=== PATIENT | male | born 1940 | race Caucasian/White ===

== ENCOUNTER 2018-07-31 16:27 | Inpatient (IN) | payer MEDICARE, OTHER ==
--- NOTE | 2018-07-31 17:03 | PDOC ---
History of Present Illness - General Stated Complaint: FLU Time Seen by Provider: 07/31/18 17:03 - History of Present Illness Initial Comments: 07/31/18 17:04 Mr. Nieves is a 78 yo male w/ pmh of CAD, CHF, HTN, paroxysmal atach and SBO s/ p operation from large hiatal hernia who presents for evaluation of 1 day history of cough with supra pubic pain, fever, and back pain. Patient reports he was in his normal state of health until 2-3 hours before presentation when everything started at once. Patient denies other complaints at this time. The patient denies chest pain, shortness of breath, headache and dizziness. Denies chills, nausea, vomit, diarrhea and constipation. Past History - Past Medical History Allergies/Adverse Reactions: Allergies Allergy/AdvReac Type Severity Reaction Status Date / Time No Known Allergies Allergy Verified 10/29/14 10:56 Home Medications: Ambulatory Orders Metoprolol Tartrate [Lopressor -] 25 mg PO BID #0 tab 08/23/11 Dexlansoprazole [Dexilant] 30 mg PO DAILY 10/17/11 Levothyroxine [Synthroid] 25 mcg PO DAILY 02/06/12 Meclizine HCl [Antivert] 12.5 mg PO TID 02/06/12 Olmesartan Medoxomil [Benicar] 20 mg PO DAILY 04/09/12 Hydrocortisone 2.5% Lotion [Hytone 2.5% Lotion -] 1 applic TP BID #1 bottle Anemia: No Asthma: No Cancer: No Cardiac Disorders: Yes CVA: No COPD: No CHF: No Dementia: No Diabetes: No GI Disorders: Yes (polyps -stomach, GI bleed) Disorders: No HTN: Yes Hypercholesterolemia: Yes Liver Disease: No Seizures: No Thyroid Disease: Yes (HYPO.) - Surgical History Abdominal Surgery: Yes (HERNIA REPAIR, PEG TUBE.) Appendectomy: No Cardiac Surgery: No Cholecystectomy: No Lung Surgery: No Neurologic Surgery: No Orthopedic Surgery: No - Family Disease History Family Disease History: Diabetes: Sister - Suicide/Smoking/Psychosocial Hx Smoking Status: No Smoking History: Never smoked Have you smoked in the past 12 months: No Number of Cigarettes Smoked Daily: 0 Hx Alcohol Use: No Drug/Substance Use Hx: No Substance Use Type: None Hx Substance Use Treatment: No Review of Systems - Review of Systems Comments:: 07/31/18 17:41 GENERAL/CONSTITUTIONAL: +Current fever. No chills. No weakness. HEAD, EYES, EARS, NOSE AND THROAT: No change in vision. No ear pain or discharge. No sore throat. CARDIOVASCULAR: No chest pain or shortness of breath RESPIRATORY: No cough, wheezing, or hemoptysis. GASTROINTESTINAL: No nausea, vomiting, diarrhea or constipation. GENITOURINARY: +Suprapubic pain and pain with urination MUSCULOSKELETAL: +Midline back pain x1 day. No joint or muscle swelling or pain. No neck pain. SKIN: No rash NEUROLOGIC: No headache, vertigo, loss of consciousness, or change in strength/ sensation. ENDOCRINE: No increased thirst. No abnormal weight change HEMATOLOGIC/LYMPHATIC: No anemia, easy bleeding, or history of blood clots. ALLERGIC/IMMUNOLOGIC: No hives or skin allergy. *Physical Exam - Physical Exam Comments: 07/31/18 17:42 GENERAL: +Patient hot to touch. Awake, alert, and fully oriented, in no acute distress HEAD: No signs of trauma, normocephalic, atraumatic EYES: PERRLA, EOMI, sclera anicteric, conjunctiva clear ENT: Auricles normal inspection, hearing grossly normal, nares patent, oropharynx clear without exudates. Moist mucosa NECK: Normal ROM, supple, no lymphadenopathy, JVD, or masses LUNGS: No distress, speaks full sentences, clear to auscultation bilaterally HEART: +Tachhycardia w/ irregular rhythm. Normal S1 and S2, no murmurs, rubs or gallops, peripheral pulses normal and equal bilaterally. ABDOMEN: +Distended appearing however reportedly at baseline per patient/ family. Pelvic TTP. Midline scar noted c/w large abdominal surgery. Soft, nontender, normoactive bowel sounds. No guarding, no rebound. No masses EXTREMITIES: Normal inspection, Normal range of motion, no edema. No clubbing or cyanosis. NEUROLOGICAL: Cranial nerves II through XII grossly intact. Normal speech, normal gait, no focal sensorimotor deficits SKIN: Dry, normal turgor, no rashes or lesions noted. ED Treatment Course - LABORATORY CBC & Chemistry Diagram: 07/31/18 17:29 07/31/18 17:29 Medical Decision Making - Medical Decision Making 07/31/18 18:33 Mr. Ezequiel Ospina is a 78 yo male w/ pmh as described who presents for evaluation of symptoms c/w sepsis. Patient workup started accordingly and patient covered with vancomycin / zosyn. IV tylenol given for 103.9 rectal temperature. EKG concerning for afib with non-sustained run of wide complex tachycardia. Metoprolol 5mg and 1L NS given for rate control. Further workup pending - patient will come in for further care once further workup complete. 07/31/18 19:07 Patient signed out to Dr. Hood for further evaluation. *DC/Admit/Observation/Transfer Diagnosis at time of Disposition: Sepsis Qualifiers: Sepsis type: sepsis due to unspecified organism Qualified Code(s): A41.9 - Sepsis, unspecified organism - Discharge Dispostion Decision to Admit order: Yes - Referrals Referrals: Eliza Boone MD [Primary Care Provider] - - Patient Instructions - Post Discharge Activity
[2018-07-31] MEDS ORDERED: METOPROLOL TARTRATE 5 MG/5 ML VIAL IVPUSH ONE (17:23)
[2018-07-31] MEDS ORDERED: VANCOMYCIN 1 GM in D5W (PRE-DOCKED) 1,000 MG/250 ML IVPB ONE (17:23)
[2018-07-31] MEDS ORDERED: PIPERACILLIN/TAZOB 3.375 GM 3.375 GM in DEXTROSE 5%-WATER - 50 ML IVPB ONE (17:23)
[2018-07-31] MEDS ORDERED: METOPROLOL TARTRATE 5 MG/5 ML VIAL ONE (17:25)
[2018-07-31] MEDS ORDERED: VANCOMYCIN 1 GRAM (PRE-DOCKED) 1,000 MG/250 ML BAG IVPB ONE (17:26)
[2018-07-31] MEDS ORDERED: PIPERACILLIN/TAZOB 3.375 GM 3.375 GM/50 ML BAG IVPB ONE (17:26)
[2018-07-31] MEDS ORDERED: ACETAMINOPHEN INJECTION 100 ML IVPB ONE (17:45)
[2018-07-31] MEDS ORDERED: ACETAMINOPHEN 1000 MG/100 ML VIAL (NON FORMULARY) IVPB ONE (17:45)
--- NOTE | 2018-07-31 18:27 | PDOC ---
Attending Attestation - Resident Resident Name: Amos Allen - ED Attending Attestation I have performed the following: I have examined & evaluated the patient, The case was reviewed & discussed with the resident, I agree w/resident's findings & plan, Exceptions are as noted
[2018-07-31 18:41] LABS: VENOUS PC02 41.8 mmHg (41-51); VENOUS PH 7.35 (7.31-7.41); VENOUS PO2 21.7 mmHg (30-40)
[2018-07-31 18:59] LABS: ALK PHOS 193 U/L (45-117); ANION GAP 9 MMOL/L (8-16); BLOOD UREA NITROGEN 22 mg/dL (7-18); CALCIUM 8.1 mg/dL (8.5-10.1); CHLORIDE 107 mmol/L (98-107); CO2 22 mmol/L (21-32); GLUCOSE,RANDOM 223 mg/dL (74-106); POTASSIUM 4.2 mmol/L (3.5-5.1); SGOT/AST 17 U/L (15-37); SGPT/ALT 20 U/L (13-61); SODIUM 138 mmol/L (136-145); TOT PROT 7.3 g/dl (6.4-8.2)
[2018-07-31 19:02] LABS: INR 1.16 (0.83-1.09); PROTHROMBIN TIME (PATIENT) 13.7 SEC (9.7-13.0)
[2018-07-31 19:05] LABS: ACTIVATED PTT 29.2 SECONDS (25.2-36.5)
--- NOTE | 2018-07-31 19:12 | PDOC ---
*Physical Exam - Vital Signs Last Vital Signs Temp Pulse Resp BP Pulse Ox 103.9 F H 91 H 18 146/91 95 07/31/18 17:24 07/31/18 16:54 07/31/18 16:54 07/31/18 17:32 07/31/18 18:45 ED Treatment Course - LABORATORY CBC & Chemistry Diagram: 07/31/18 17:29 07/31/18 17:29 - ADDITIONAL ORDERS Additional order review: Laboratory Results 07/31/18 07/31/18 07/31/18 17:50 17:29 17:29 PT with INR INR PTT (Actin FS) VBG pH 7.35 POC VBG pCO2 41.8 POC VBG pO2 21.7 L VBG HCO3 22.2 L VBG O2 Sat (Jodi) 29.7 L VBG Base Excess -2.8 L Sodium 138 Potassium 4.2 Chloride 107 Carbon Dioxide 22 Anion Gap 9 BUN 22 H Creatinine 2.0 H Creat Clearance w eGFR 32.65 Random Glucose 223 H Lactic Acid 3.6 H* Calcium 8.1 L Total Bilirubin 1.0 AST 17 ALT 20 Alkaline Phosphatase 193 H Troponin I Total Protein 7.3 Albumin 3.0 L 07/31/18 07/31/18 17:29 16:13 PT with INR 13.70 H INR 1.16 H PTT (Actin FS) 29.2 VBG pH POC VBG pCO2 POC VBG pO2 VBG HCO3 VBG O2 Sat (Jodi) VBG Base Excess Sodium Potassium Chloride Carbon Dioxide Anion Gap BUN Creatinine Creat Clearance w eGFR Random Glucose Lactic Acid Calcium Total Bilirubin AST ALT Alkaline Phosphatase Troponin I 0.12 H Total Protein Albumin - Medications Given in the ED: ED Medications Discontinued Medications Generic Name Dose Route Start Last Admin Trade Name Chipq PRN Reason Stop Dose Admin Acetaminophen 1,000 mg 07/31/18 17:45 07/31/18 17:45 Ofirmev Injection - IVPB 07/31/18 17:46 1,000 mg ONCE ONE Administration Piperacillin Sod/Tazobactam 50 mls @ 100 mls/hr 07/31/18 17:23 07/31/18 17:32 Sod 3.375 gm/ Dextrose IVPB 07/31/18 17:52 100 mls/hr ONCE ONE Administration Protocol Metoprolol Tartrate 5 mg 07/31/18 17:23 07/31/18 17:32 Lopressor Injection - IVPUSH 07/31/18 17:24 5 mg ONCE ONE Administration Vancomycin HCl 1,000 mg 07/31/18 17:23 07/31/18 18:00 Vancomycin (Pre-Docked) IVPB 07/31/18 17:24 1,000 mg ONCE ONE Administration Protocol Medical Decision Making - Critical Care Time Total Critical Care Time (minutes): 90 Critical Care Statement: The care of this patient involved high complexity decision making to prevent further life threatening deterioration of the patient 's condition and/or to evaluate & treat vital organ system(s) failure or risk of failure. - Medical Decision Making 07/31/18 20:22 Patient signed out pending urinalysis results, UA consistent with urinary tract infection There are RBCs present and in light of patient's suprapubic/flank pain a CT will be ordered to further evaluate and rule out ureterolithiasis Sepsis protocol initiated Plan for admission pending CT scan results There have been no further episodes of V. tach *DC/Admit/Observation/Transfer Diagnosis at time of Disposition: Sepsis Qualifiers: Sepsis type: sepsis due to unspecified organism Qualified Code(s): A41.9 - Sepsis, unspecified organism - Referrals Referrals: Eliza Boone MD [Primary Care Provider] - - Patient Instructions - Post Discharge Activity
[2018-07-31 19:18] LABS: BASO % 0.2 % (0-2.0); EOS % 0.5 % (0-4.5); HEMATOCRIT 40.9 % (35.4-49); HEMOGLOBIN 12.2 GM/dL (11.7-16.9); LYMPH % 4.6 % (8-40); MCH 21.5 pg (25.7-33.7); MCHC 29.8 g/dl (32.0-35.9); MEAN CELL VOLUME 71.9 fl (80-96); MEAN PLT VOLUME 8.8 fl (7.5-11.1); NEUT % 93.7 % (42.8-82.8); PLATELET COUNT 184 K/MM3 (134-434); RBC 5.68 M/mm3 (4.00-5.60); RDW 19.4 % (11.9-15.9); WHITE BLOOD COUNT 8.8 K/mm3 (4.0-10.0)
[2018-07-31 19:38] LABS: EPI CELLS 0.5 /HPF (0-5); PH,URINE 5.5 (5.0-8.0); URINE APPEARANCE CLOUDY; URINE BACTERIA 3076.3 /hpf (NEGATIVE); URINE BILIRUBIN NEGATIVE (NEGATIVE); URINE CASTS 5 /hpf (0-8); URINE COLOR ORANGE; URINE GLUCOSE (UA) 2+ (NEGATIVE); URINE KETONE NEGATIVE (NEGATIVE); URINE LEUK ESTERASE 1+ (NEGATIVE); URINE NITRITE NEGATIVE (NEGATIVE); URINE PROTEIN 3+ (NEGATIVE); URINE RBC 51 /hpf (0-4); URINE WBC 94 /hpf (0-5)
[2018-07-31 20:11] LABS: ANISOCYTOSIS 1+; PLATELET ESTIMATE ADEQUATE
[2018-07-31] MEDS ORDERED: SODIUM CHLORIDE 1,000 ML IV STA (20:16)
--- NOTE | 2018-07-31 20:43 | PDOC ---
*Physical Exam - Vital Signs Last Vital Signs Temp Pulse Resp BP Pulse Ox 103.9 F H 91 H 18 146/91 95 07/31/18 17:24 07/31/18 16:54 07/31/18 16:54 07/31/18 17:32 07/31/18 18:45 ED Treatment Course - LABORATORY CBC & Chemistry Diagram: 07/31/18 17:29 07/31/18 17:29 - ADDITIONAL ORDERS Additional order review: Laboratory Results 07/31/18 07/31/18 07/31/18 19:14 17:50 17:29 PT with INR INR PTT (Actin FS) VBG pH 7.35 POC VBG pCO2 41.8 POC VBG pO2 21.7 L VBG HCO3 22.2 L VBG O2 Sat (Jodi) 29.7 L VBG Base Excess -2.8 L Sodium Potassium Chloride Carbon Dioxide Anion Gap BUN Creatinine Creat Clearance w eGFR Random Glucose Lactic Acid 3.6 H* Calcium Total Bilirubin AST ALT Alkaline Phosphatase Troponin I Total Protein Albumin Urine Color [place] Urine Appearance Cloudy Urine pH 5.5 Ur Specific [place] 1.013 Urine Protein 3+ H Urine Glucose (UA) 2+ H Urine Ketones Negative Urine Blood 3+ H Urine Nitrite Negative Urine Bilirubin Negative Urine Urobilinogen 1.0 Ur Leukocyte Esterase 1+ H Urine WBC (Auto) 94 Urine RBC (Auto) 51 Urine Casts (Auto) 5 U Epithel Cells (Auto) 0.5 Urine Bacteria (Auto) 3076.3 07/31/18 07/31/18 07/31/18 17:29 17:29 16:13 PT with INR 13.70 H INR 1.16 H PTT (Actin FS) 29.2 VBG pH POC VBG pCO2 POC VBG pO2 VBG HCO3 VBG O2 Sat (Jodi) VBG Base Excess Sodium 138 Potassium 4.2 Chloride 107 Carbon Dioxide 22 Anion Gap 9 BUN 22 H Creatinine 2.0 H Creat Clearance w eGFR 32.65 Random Glucose 223 H Lactic Acid Calcium 8.1 L Total Bilirubin 1.0 AST 17 ALT 20 Alkaline Phosphatase 193 H Troponin I 0.12 H Total Protein 7.3 Albumin 3.0 L Urine Color Urine Appearance Urine pH Ur Specific [place] Urine Protein Urine Glucose (UA) Urine Ketones Urine Blood Urine Nitrite Urine Bilirubin Urine Urobilinogen Ur Leukocyte Esterase Urine WBC (Auto) Urine RBC (Auto) Urine Casts (Auto) U Epithel Cells (Auto) Urine Bacteria (Auto) 07/31/18 17:29 RBC 5.68 H MCV 71.9 L MCHC 29.8 L RDW 19.4 H MPV 8.8 D Neutrophils % 93.7 H D Lymphocytes % 4.6 L D Monocytes % 1.0 L D Eosinophils % 0.5 D Basophils % 0.2 - RADIOLOGY Radiology Studies Ordered: Category Date Time Status ABDOMEN & PELVIS CT W/O CONTR [CT] Stat CT Scan 07/31/18 20:19 Ordered - Medications Given in the ED: ED Medications Discontinued Medications Generic Name Dose Route Start Last Admin Trade Name Freq PRN Reason Stop Dose Admin Acetaminophen 1,000 mg 07/31/18 17:45 07/31/18 17:45 Ofirmev Injection - IVPB 07/31/18 17:46 1,000 mg ONCE ONE Administration Piperacillin Sod/Tazobactam 50 mls @ 100 mls/hr 07/31/18 17:23 07/31/18 17:32 Sod 3.375 gm/ Dextrose IVPB 07/31/18 17:52 100 mls/hr ONCE ONE Administration Protocol Metoprolol Tartrate 5 mg 07/31/18 17:23 07/31/18 17:32 Lopressor Injection - IVPUSH 07/31/18 17:24 5 mg ONCE ONE Administration Vancomycin HCl 1,000 mg 07/31/18 17:23 07/31/18 18:00 Vancomycin (Pre-Docked) IVPB 07/31/18 17:24 1,000 mg ONCE ONE Administration Protocol Medical Decision Making - Medical Decision Making 08/01/18 06:54 CT shows evidence of pyelo. UA+. Signed out to [facility]. *DC/Admit/Observation/Transfer Diagnosis at time of Disposition: Sepsis Qualifiers: Sepsis type: sepsis due to unspecified organism Qualified Code(s): A41.9 - Sepsis, unspecified organism - Referrals - Patient Instructions - Post Discharge Activity
--- NOTE | 2018-08-01 00:33 | PN ---
Teaching Attending Note Name of Resident: Manuel Greene ATTENDING PHYSICIAN STATEMENT I saw and evaluated the patient. I reviewed the resident's note and discussed the case with the resident. I agree with the resident's findings and plan as documented. SUBJECTIVE: Patient is a 78 year old man with PMH of CAD, CHF, HTN, paroxysmal atrial tach, gynaecomastia, hypothyroidism and SBO s/p operation from large hiatal hernia who presents for evaluation of 1 day history of cough with supra pubic pain, fever, and back pain. Patient reports he was in his normal state of health until 2-3 hours before presentation when everything started at once. The patient denies chest pain, shortness of breath, headache and dizziness. Denies chills, nausea, vomit, diarrhea and constipation. EKG in the ER was noted to be concerning for Afib with non-sustained run of wide complex tachycardia. He was given metoprolol 5mg and 1L NS given for rate control and did not have any more documented episodes of V. tach. OBJECTIVE: Alert Vital Signs Period Temp Pulse Resp BP Sys/Rivera Pulse Ox Last 24 Hr 98.2 F-103.9 F 91-94 18-22 96-146/58-91 91-96 HEENT: No Jaundice, eye redness or discharge, PERRLA, EOMI. Normocephalic, atraumatic. External ears are normal and hearing is grossly intact. No nasal discharge. Neck: Supple, nontender. No palpable adenopathy or thyromegaly. No JVD Chest: Good effort. Clear to auscultation and percussion. Heart: Tachycardia. No S3, rub or murmur Abdomen: Obese, soft, nontender and no HSM. No rebound or guarding. Normal bowel sounds. Ext: Peripheral pulses intact. No leg edema. Skin: Warm and dry. No petechiae, rash or ecchymosis. Neuro: Alert. Oriented x3. CN 2-12 grossly intact. Sensation grossly intact in all four extremities and DTR are symmetric. Psych: Appropriate mood and affect. Good insight. Home Medications Medication Instructions Recorded Metoprolol Tartrate [Lopressor -] 25 mg PO BID #0 tab 08/23/11 Dexlansoprazole [Dexilant] 30 mg PO DAILY 10/17/11 Levothyroxine [Synthroid] 25 mcg PO DAILY 02/06/12 Meclizine HCl [Antivert] 12.5 mg PO TID 02/06/12 Olmesartan Medoxomil [Benicar] 20 mg PO DAILY 04/09/12 Hydrocortisone 2.5% Lotion [Hytone 1 applic TP BID #1 bottle 10/29/14 2.5% Lotion -] Abnormal Lab Results 07/31/18 07/31/18 07/31/18 16:13 17:29 17:29 RBC 5.68 H MCV 71.9 L MCH 21.5 L D MCHC 29.8 L RDW 19.4 H Absolute Neuts (auto) 8.3 H Neutrophils % 93.7 H D Lymphocytes % 4.6 L D Lymphocytes % (Manual) 6.0 L Monocytes % 1.0 L D Monocytes % (Manual) 0 L PT with INR 13.70 H INR 1.16 H POC VBG pO2 VBG HCO3 VBG O2 Sat (Jodi) VBG Base Excess BUN Creatinine Random Glucose Lactic Acid Calcium Alkaline Phosphatase Troponin I 0.12 H Albumin Urine Protein Urine Glucose (UA) Urine Blood Ur Leukocyte Esterase 07/31/18 07/31/18 07/31/18 17:29 17:29 17:50 RBC MCV MCH MCHC RDW Absolute Neuts (auto) Neutrophils % Lymphocytes % Lymphocytes % (Manual) Monocytes % Monocytes % (Manual) PT with INR INR POC VBG pO2 21.7 L VBG HCO3 22.2 L VBG O2 Sat (Jodi) 29.7 L VBG Base Excess -2.8 L BUN 22 H Creatinine 2.0 H Random Glucose 223 H Lactic Acid 3.6 H* Calcium 8.1 L Alkaline Phosphatase 193 H Troponin I Albumin 3.0 L Urine Protein Urine Glucose (UA) Urine Blood Ur Leukocyte Esterase 07/31/18 07/31/18 19:14 21:12 RBC MCV MCH MCHC RDW Absolute Neuts (auto) Neutrophils % Lymphocytes % Lymphocytes % (Manual) Monocytes % Monocytes % (Manual) PT with INR INR POC VBG pO2 VBG HCO3 VBG O2 Sat (Jodi) VBG Base Excess BUN Creatinine Random Glucose Lactic Acid 2.4 H* Calcium Alkaline Phosphatase Troponin I Albumin Urine Protein 3+ H Urine Glucose (UA) 2+ H Urine Blood 3+ H Ur Leukocyte Esterase 1+ H ASSESSMENT AND PLAN: 1. Sepsis due to UTI - Got Zosyn and Vancmycin in the ER. Will continue on Rocephin pending culture report. Continue IV NS according to sepsis protocol and trend lactic acid level. Initia EKG in the ER showed SVT with associated run of ?V. tach. and troponin is elevated. Got metoprolol and tachycardia improved. Will monitor on telemetry , repeat EKG and rule out ACS. Consult cardiology, get ECHO, TFT and fasting lipids. 2. Hypoalbuminemia - Possibly due to combined effects of malnutrition and inflammation associated with comorbid chronic conditions. Will ensure adequate dietary protein intake and also consult dye machine tender. 3. MARY - Etiology unclear. Will get kidney sonogram, PTH and phosphate levels. Repeat BMP after hydration. Consult nephrology and avoid nephrotoxic agents such as NSAIDS, aminoglycosides, contrast dyes and certain Alternative medicine products. 4. Obesity Counseled on the risks associated with obesity. Will provide patient all the necessary assistance, counseling and positive reinforcement to facilitate weight loss. Consult dye machine tender. 5. DM Will implement sliding scale insulin regimen and check HbA1c. Provide comprehensive diabetes care with patient teaching and counseling about the importance of adherence to prescribed diabetes regimen, euglycemia, eye care and foot care. 6. Hypertension - Restart outpatient antihypertensive drugs and revise regimen to ensure smooth [id number] good BP control. Nonpharmacologic measures to control hypertension like weight loss, salt restriction and exercise discussed. 7. DVT prophylaxis - Heparin 5000u sq tid. 8. Advance directives - Full code
--- NOTE | 2018-08-01 00:49 | HP ---
CHIEF COMPLAINT: Fever, abdominal pain , shivering PCP: Dr clay HISTORY OF PRESENT ILLNESS: Mr. Nieves is a 78 yo male w/ pmh of CAD, CHF, HTN, paroxysmal atach and SBO s/ p operation from large hiatal hernia who presents for evaluation of 3 days history of cough with supra pubic pain, fever, and back pain. pt reports symptoms of shivering , fever worsening today that prompt hime to come to ED , he reports chronic back pajn , he also reports burning sensation when he pass usine and suprapubic pain and dark urine. 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 ER course was notable for: (1)cbc, cmp (2)IVFLuids , Vanc/zosyn (3)CT A/P Recent Travel: denies PAST MEDICAL HISTORY: as per HPI PAST SURGICAL HISTORY: Hernia repair, H/O PEG tube Social History: Smoking:denies Alcohol:denies Drugs: denies Family History:DM in his sister Allergies No Known Allergies Allergy (Verified 10/29/14 10:56) HOME MEDICATIONS: Home Medications Medication Instructions Recorded Metoprolol Tartrate [Lopressor -] 25 mg PO BID #0 tab 08/23/11 Dexlansoprazole [Dexilant] 30 mg PO DAILY 10/17/11 Levothyroxine [Synthroid] 25 mcg PO DAILY 02/06/12 Meclizine HCl [Antivert] 12.5 mg PO TID 02/06/12 Olmesartan Medoxomil [Benicar] 20 mg PO DAILY 04/09/12 Hydrocortisone 2.5% Lotion [Hytone 1 applic TP BID #1 bottle 10/29/14 2.5% Lotion -] REVIEW OF SYSTEMS CONSTITUTIONAL: Absent: fever, chills, diaphoresis, generalized weakness, malaise, loss of appetite, weight change HEENT: Absent: rhinorrhea, nasal congestion, throat pain, throat swelling, difficulty swallowing, mouth swelling, ear pain, eye pain, visual changes CARDIOVASCULAR: Absent: chest pain, syncope, palpitations, irregular heart rate, lightheadedness , peripheral edema RESPIRATORY: Absent: cough, shortness of breath, dyspnea with exertion, orthopnea, wheezing, stridor, hemoptysis GASTROINTESTINAL: Absent: abdominal pain, abdominal distension, nausea, vomiting, diarrhea, constipation, melena, hematochezia GENITOURINARY: Absent: dysuria, frequency, urgency, hesitancy, hematuria, flank pain, genital pain MUSCULOSKELETAL: Absent: myalgia, arthralgia, joint swelling, back pain, neck pain SKIN: Absent: rash, itching, pallor HEMATOLOGIC/IMMUNOLOGIC: Absent: easy bleeding, easy bruising, lymphadenopathy, frequent infections ENDOCRINE: Absent: unexplained weight gain, unexplained weight loss, heat intolerance, cold intolerance NEUROLOGIC: Absent: headache, focal weakness or paresthesias, dizziness, unsteady gait, seizure, mental status changes, bladder or bowel incontinence PSYCHIATRIC: Absent: anxiety, depression, suicidal or homicidal ideation, hallucinations. PHYSICAL EXAMINATION Vital Signs - 24 hr 07/31/18 07/31/18 07/31/18 16:54 17:24 17:32 Temperature 99.7 F H 103.9 F H Pulse Rate 91 H Pulse Rate [ Right] Respiratory 18 Rate Blood Pressure 146/91 146/91 Blood Pressure [Right Arm] O2 Sat by Pulse 91 L Oximetry (%) 07/31/18 07/31/18 18:45 23:55 Temperature 98.2 F Pulse Rate Pulse Rate [ 94 H Right] Respiratory 22 H Rate Blood Pressure Blood Pressure 96/58 L [Right Arm] O2 Sat by Pulse 95 96 Oximetry (%) GENERAL: AAOx3 in NAD , obese man HEAD: NC/AT EYES: EOMI, LUKE, ENT: dry mucous membrane with oral breathing NECK: obese Supple, LUNGS: CTA B/L, no crackles no wheezing no accessory muscle use. HEART: sinus tachy , normal s1, s2, no M/R/G ABDOMEN: Obese Soft, ND, NT, +BS 4 Q, no CVA Tenderness, surgical scar longtudinal in epigastric area LOWER EXTREMITIES: no edema, +2DP pulse, NEUROLOGICAL: No focal deficit. Normal speech. gait not observed. PSYCHIATRIC: Cooperative. SKIN: Warm, dry, Laboratory Results - last 24 hr 07/31/18 07/31/18 07/31/18 16:13 17:29 17:29 WBC 8.8 RBC 5.68 H Hgb 12.2 Hct 40.9 D MCV 71.9 L MCH 21.5 L D MCHC 29.8 L RDW 19.4 H Plt Count 184 D MPV 8.8 D Absolute Neuts (auto) 8.3 H Neutrophils % 93.7 H D Neutrophils % (Manual) 71.0 Band Neutrophils % 22.0 Lymphocytes % 4.6 L D Lymphocytes % (Manual) 6.0 L Monocytes % 1.0 L D Monocytes % (Manual) 0 L Eosinophils % 0.5 D Eosinophils % (Manual) 1.0 Basophils % 0.2 Basophils % (Manual) 0.0 Nucleated RBC % 0 Hypochromia 1+ Platelet Estimate Adequate Anisocytosis 1+ PT with INR 13.70 H INR 1.16 H PTT (Actin FS) 29.2 VBG pH POC VBG pCO2 POC VBG pO2 VBG HCO3 VBG O2 Sat (Jodi) VBG Base Excess Sodium Potassium Chloride Carbon Dioxide Anion Gap BUN Creatinine Creat Clearance w eGFR Random Glucose Lactic Acid Calcium Total Bilirubin AST ALT Alkaline Phosphatase Troponin I 0.12 H Total Protein Albumin Urine Color Urine Appearance Urine pH Ur Specific [place] Urine Protein Urine Glucose (UA) Urine Ketones Urine Blood Urine Nitrite Urine Bilirubin Urine Urobilinogen Ur Leukocyte Esterase Urine WBC (Auto) Urine RBC (Auto) Urine Casts (Auto) U Epithel Cells (Auto) Urine Bacteria (Auto) 07/31/18 07/31/18 07/31/18 17:29 17:29 17:50 WBC RBC Hgb Hct MCV MCH MCHC RDW Plt Count MPV Absolute Neuts (auto) Neutrophils % Neutrophils % (Manual) Band Neutrophils % Lymphocytes % Lymphocytes % (Manual) Monocytes % Monocytes % (Manual) Eosinophils % Eosinophils % (Manual) Basophils % Basophils % (Manual) Nucleated RBC % Hypochromia Platelet Estimate Anisocytosis PT with INR INR PTT (Actin FS) VBG pH 7.35 POC VBG pCO2 41.8 POC VBG pO2 21.7 L VBG HCO3 22.2 L VBG O2 Sat (Jodi) 29.7 L VBG Base Excess -2.8 L Sodium 138 Potassium 4.2 Chloride 107 Carbon Dioxide 22 Anion Gap 9 BUN 22 H Creatinine 2.0 H Creat Clearance w eGFR 32.65 Random Glucose 223 H Lactic Acid 3.6 H* Calcium 8.1 L Total Bilirubin 1.0 AST 17 ALT 20 Alkaline Phosphatase 193 H Troponin I Total Protein 7.3 Albumin 3.0 L Urine Color Urine Appearance Urine pH Ur Specific [place] Urine Protein Urine Glucose (UA) Urine Ketones Urine Blood Urine Nitrite Urine Bilirubin Urine Urobilinogen Ur Leukocyte Esterase Urine WBC (Auto) Urine RBC (Auto) Urine Casts (Auto) U Epithel Cells (Auto) Urine Bacteria (Auto) 07/31/18 07/31/18 19:14 21:12 WBC RBC Hgb Hct MCV MCH MCHC RDW Plt Count MPV Absolute Neuts (auto) Neutrophils % Neutrophils % (Manual) Band Neutrophils % Lymphocytes % Lymphocytes % (Manual) Monocytes % Monocytes % (Manual) Eosinophils % Eosinophils % (Manual) Basophils % Basophils % (Manual) Nucleated RBC % Hypochromia Platelet Estimate Anisocytosis PT with INR INR PTT (Actin FS) VBG pH POC VBG pCO2 POC VBG pO2 VBG HCO3 VBG O2 Sat (Jodi) VBG Base Excess Sodium Potassium Chloride Carbon Dioxide Anion Gap BUN Creatinine Creat Clearance w eGFR Random Glucose Lactic Acid 2.4 H* Calcium Total Bilirubin AST ALT Alkaline Phosphatase Troponin I Total Protein Albumin Urine Color [place] Urine Appearance Cloudy Urine pH 5.5 Ur Specific [place] 1.013 Urine Protein 3+ H Urine Glucose (UA) 2+ H Urine Ketones Negative Urine Blood 3+ H Urine Nitrite Negative Urine Bilirubin Negative Urine Urobilinogen 1.0 Ur Leukocyte Esterase 1+ H Urine WBC (Auto) 94 Urine RBC (Auto) 51 Urine Casts (Auto) 5 U Epithel Cells (Auto) 0.5 Urine Bacteria (Auto) 3076.3 CBC, BMP 07/31/18 17:29 07/31/18 17:29 ASSESSMENT/PLAN: Mr. Nieves is a 78 yo male w/ pmh of CAD, CHF, HTN, paroxysmal atach and SBO s/ p Hernia repair presented with fever , chills , back pain and suprapubic pain was found to have sever sepsis due to UTI and admitted for tele inpatient for further evaluation # sepsis 2/2 UTI- R.O Pyelonephritis * Fever 103.9, RR 22 , BP 96/58, LA 3.4....2.6 * Vanco zosyn in ED continue * IV fluids @ 83 CC * Bae cx * repeat LA in am * consider ID consult * UA with +1 LE, 94 wbc , cx pending * Influenza A, B , # MARY * BUN/Cr 22/2.0 * Likely pre renal , repeat lab after hydration * R.O obstruction on CT * urine lytes * Urine NA * calculate FENA # Elevated trop can not R.o NSTEMI vs Demand ischemia vs SVT * trend trop 0.12.....0.19 trend * No EKG changes , repeat in AM , * ASA 162 * denies any chest pain * consider consulr cardiology if cont to trend up * Echo in am to R.O wall motion abnormalities * RIsk stratification Lipid profile , Cholesterol, A1c # SVT * likley due to sepsis * monitor on Tele Lopressor PRN for rate control after sespsis resolved * cont Metoprolol home dose # CAD? # CHF ? * pt denies * ECHo In AM * cont home meds # prolonged QTC 494 * Avoid emds prolong QTC # HTN * Hypotensive , will hold home meds * hold ACEI in term of MARY # DM * Hold oral agents * ISS * Diabetic diet # Hypothyroidism * TSH * Continue home meds Synthroid # FEN * NS @ 83 cc /hr * Monitor lytes * Diabetic diet low na diet # Proph * DVTs: Hep sQ TID , scds * GI : PPI 20 daily # Dispo * Tele inpatient # Full code Visit type - Emergency Visit Emergency Visit: Yes ED Registration Date: 07/31/18 Care time: The patient presented to the Emergency Department on the above date and was hospitalized for further evaluation of their emergent condition. - New Patient This patient is new to me today: Yes Date on this admission: 07/31/18 - Critical Care Critical Care patient: No
[2018-08-01] MEDS: SODIUM CHLORIDE 1,000 ML IV SCH (02:31)
[2018-08-01] MEDS ORDERED: PIPERACILLIN/TAZOB 3.375 GM 3.375 GM/50 ML BAG IVPB ONE (03:42)
[2018-08-01] MEDS: PIPERACILLIN/TAZOB 3.375 GM 3.375 GM in DEXTROSE 5%-WATER - 50 ML IVPB SCH ×2 (03:51→10:26)
[2018-08-01] MEDS: INSULIN SLIDING SCALE (NOVOLOG) 1 VIAL SQ SCH ×4 (06:03→22:07)
[2018-08-01] MEDS: HEPARIN NA (PORCINE) 5,000 UNITS/ML 1ML VIAL SQ SCH ×3 (06:04→22:08)
[2018-08-01] MEDS ORDERED: LEVOTHYROXINE NA 25 MCG TABLET (FP) PO SCH (07:00)
[2018-08-01 07:09] VITALS: BMI 39.9
[2018-08-01] MEDS ORDERED: SODIUM CHLORIDE 250 ML IV STA (07:52)
[2018-08-01] MEDS ORDERED: PNEUMOC 13-VAL CONJ-DIP CRM/PF 0.5 ML DISP.SYRIN IM ONE (09:00)
[2018-08-01] MEDS ORDERED: DEXTROSE 5%-WATER - 50 ML IVPB ONE (09:05)
[2018-08-01] MEDS ORDERED: PIPERACILLIN/TAZOBACTAM 3.375 GM VIAL IVPB ONE (09:05)
[2018-08-01 09:26] LABS: BASO % 0.2 % (0-2.0); EOS % 0.6 % (0-4.5); HEMATOCRIT 41.6 % (35.4-49); HEMOGLOBIN 12.4 GM/dL (11.7-16.9); LYMPH % 5.2 % (8-40); MCH 21.1 pg (25.7-33.7); MCHC 29.8 g/dl (32.0-35.9); MEAN CELL VOLUME 70.8 fl (80-96); MEAN PLT VOLUME 8.5 fl (7.5-11.1); MONO % 4.8 % (3.8-10.2); NEUT % 89.2 % (42.8-82.8); PLATELET COUNT 180 K/MM3 (134-434); RBC 5.87 M/mm3 (4.00-5.60); RDW 19.8 % (11.9-15.9); WHITE BLOOD COUNT 14.2 K/mm3 (4.0-10.0)
[2018-08-01] MEDS ORDERED: METOPROLOL TARTRATE 25 MG TABLET (FP) PO SCH (10:00)
[2018-08-01 10:04] LABS: ALBUMIN 2.8 g/dl (3.4-5.0); ALK PHOS 115 U/L (45-117); ANION GAP 8 MMOL/L (8-16); BILIRUBIN,TOTAL 0.7 mg/dL (0.2-1); BLOOD UREA NITROGEN 26 mg/dL (7-18); CALCIUM 7.1 mg/dL (8.5-10.1); CHLORIDE 111 mmol/L (98-107); CHOLESTEROL 88 mg/dL (50-200); CO2 24 mmol/L (21-32); CREATININE 1.9 mg/dL (0.55-1.3); GLUCOSE,RANDOM 123 mg/dL (74-106); PHOSPHOROUS 2.4 mg/dL (2.5-4.9); POTASSIUM 3.6 mmol/L (3.5-5.1); SGOT/AST 20 U/L (15-37); SGPT/ALT 15 U/L (13-61); SODIUM 144 mmol/L (136-145); TOT PROT 6.5 g/dl (6.4-8.2)
[2018-08-01] MEDS: PANTOPRAZOLE 20 MG TABLET (FP) PO SCH (10:27)
--- NOTE | 2018-08-01 10:46 | CON.CARD ---
Cardiology Consult (text) - Consultation Consultation Note: cc: fever, suprapubic pain hpi: 78 m hx cad, syst chf, htn, PAT, ckd here with fever, suprapubic pain. Past few days with these sxs. No cp sob palps dizzy loc pnd orthopnea le edema. Treating for uti/sepsis. pmh: per hpi psh: hernia repair, peg social: no tob fam: no premature cad ros: per hpi; no nvd vision changes. +mild cough. no gib. all others normal meds: Home Medications Medication Instructions Recorded Metoprolol Tartrate [Lopressor -] 25 mg PO BID #0 tab 08/23/11 Dexlansoprazole [Dexilant] 30 mg PO DAILY 10/17/11 Levothyroxine [Synthroid] 25 mcg PO DAILY 02/06/12 Meclizine HCl [Antivert] 12.5 mg PO TID 02/06/12 Olmesartan Medoxomil [Benicar] 20 mg PO DAILY 04/09/12 Hydrocortisone 2.5% Lotion [Hytone 1 applic TP BID #1 bottle 10/29/14 2.5% Lotion -] pe: Vital Signs Period Temp Pulse Resp BP Sys/Rivera Pulse Ox Last 24 Hr 97.6 F-103.9 F 90-98 15-22 96-146/58-91 91-99 nad no jvd rrr s1s2 no mrg cta bl nl eff aao3 no le e/c/c abd nt nd pos bs no jaundice diaphoresis pos dp pt Laboratory Last Values WBC 14.2 K/mm3 (4.0-10.0) H 08/01/18 08:32 RBC 5.87 M/mm3 (4.00-5.60) H 08/01/18 08:32 Hgb 12.4 GM/dL (11.7-16.9) 08/01/18 08:32 Hct 41.6 % (35.4-49) 08/01/18 08:32 MCV 70.8 fl (80-96) L 08/01/18 08:32 MCH 21.1 pg (25.7-33.7) L 08/01/18 08:32 MCHC 29.8 g/dl (32.0-35.9) L 08/01/18 08:32 RDW 19.8 % (11.9-15.9) H 08/01/18 08:32 Plt Count 180 K/MM3 (134-434) 08/01/18 08:32 MPV 8.5 fl (7.5-11.1) 08/01/18 08:32 Absolute Neuts (auto) 12.6 K/mm3 (1.5-8.0) H 08/01/18 08:32 Neutrophils % 89.2 % (42.8-82.8) H 08/01/18 08:32 Neutrophils % (Manual) 71.0 % (42.8-82.8) 07/31/18 17:29 Band Neutrophils % 22.0 % 07/31/18 17:29 Lymphocytes % 5.2 % (8-40) L 08/01/18 08:32 Lymphocytes % (Manual) 6.0 % (8-40) L 07/31/18 17:29 Monocytes % 4.8 % (3.8-10.2) D 08/01/18 08:32 Monocytes % (Manual) 0 % (3.8-10.2) L 07/31/18 17:29 Eosinophils % 0.6 % (0-4.5) 08/01/18 08:32 Eosinophils % (Manual) 1.0 % (0-4.5) 07/31/18 17:29 Basophils % 0.2 % (0-2.0) 08/01/18 08:32 Basophils % (Manual) 0.0 % (0-2.0) 07/31/18 17:29 Nucleated RBC % 0 % (0-0) 08/01/18 08:32 Hypochromia 1+ 07/31/18 17:29 Platelet Estimate Adequate 07/31/18 17:29 Anisocytosis 1+ 07/31/18 17:29 PT with INR 13.70 SEC (9.7-13.0) H 07/31/18 17:29 INR 1.16 (0.83-1.09) H 07/31/18 17:29 PTT (Actin FS) 33.1 SECONDS (25.2-36.5) 08/01/18 08:32 VBG pH 7.35 (7.31-7.41) 07/31/18 17:50 POC VBG pCO2 41.8 mmHg (41-51) 07/31/18 17:50 POC VBG pO2 21.7 mmHg (30-40) L 07/31/18 17:50 VBG HCO3 22.2 mmol/L (23-29) L 07/31/18 17:50 VBG O2 Sat (Jodi) 29.7 % (70-80) L 07/31/18 17:50 VBG Base Excess -2.8 meq/l (-2-2) L 07/31/18 17:50 Sodium 144 mmol/L (136-145) 08/01/18 08:32 Potassium 3.6 mmol/L (3.5-5.1) 08/01/18 08:32 Chloride 111 mmol/L (98-107) H 08/01/18 08:32 Carbon Dioxide 24 mmol/L (21-32) 08/01/18 08:32 Anion Gap 8 MMOL/L (8-16) 08/01/18 08:32 BUN 26 mg/dL (7-18) H 08/01/18 08:32 Creatinine 1.9 mg/dL (0.55-1.3) H 08/01/18 08:32 Creat Clearance w eGFR 34.64 (>60) 08/01/18 08:32 POC Glucometer 170 UNITS (80-120) 08/01/18 05:47 Random Glucose 123 mg/dL (74-106) H 08/01/18 08:32 Hemoglobin A1c % 10.9 % (4.2-6.3) H 08/01/18 08:32 Lactic Acid 3.0 mmol/L (0.4-2.0) H* 08/01/18 08:32 Calcium 7.1 mg/dL (8.5-10.1) L 08/01/18 08:32 Phosphorus 2.4 mg/dL (2.5-4.9) L 08/01/18 08:32 Magnesium 2.0 mg/dL (1.8-2.4) 08/01/18 08:32 Total Bilirubin 0.7 mg/dL (0.2-1) 08/01/18 08:32 AST 20 U/L (15-37) 08/01/18 08:32 ALT 15 U/L (13-61) 08/01/18 08:32 Alkaline Phosphatase 115 U/L (45-117) 08/01/18 08:32 Troponin I 0.15 ng/ml (0.00-0.05) H 08/01/18 08:32 B-Natriuretic Peptide 2010.9 pg/ml (5-450) H 08/01/18 08:32 Total Protein 6.5 g/dl (6.4-8.2) 08/01/18 08:32 Albumin 2.8 g/dl (3.4-5.0) L 08/01/18 08:32 Triglycerides 132 mg/dL (0-150) 08/01/18 08:32 Cholesterol 88 mg/dL (50-200) 08/01/18 08:32 Total LDL Cholesterol 40 mg/dL (5-100) 08/01/18 08:32 HDL Cholesterol 34 mg/dL (40-60) L 08/01/18 08:32 TSH 0.78 uIU/ml (0.358-3.74) 08/01/18 08:32 Urine Color [place] 07/31/18 19:14 Urine Appearance Cloudy 07/31/18 19:14 Urine pH 5.5 (5.0-8.0) 07/31/18 19:14 Ur Specific [place] 1.013 (1.010-1.035) 07/31/18 19:14 Urine Protein 3+ (NEGATIVE) H 07/31/18 19:14 Urine Glucose (UA) 2+ (NEGATIVE) H 07/31/18 19:14 Urine Ketones Negative (NEGATIVE) 07/31/18 19:14 Urine Blood 3+ (NEGATIVE) H 07/31/18 19:14 Urine Nitrite Negative (NEGATIVE) 07/31/18 19:14 Urine Bilirubin Negative (NEGATIVE) 07/31/18 19:14 Urine Urobilinogen 1.0 mg/dL (0.2-1.0) 07/31/18 19:14 Ur Leukocyte Esterase 1+ (NEGATIVE) H 07/31/18 19:14 Urine WBC (Auto) 94 /hpf (0-5) 07/31/18 19:14 Urine RBC (Auto) 51 /hpf (0-4) 07/31/18 19:14 Urine Casts (Auto) 5 /hpf (0-8) 07/31/18 19:14 U Epithel Cells (Auto) 0.5 /HPF (0-5) 07/31/18 19:14 Urine Bacteria (Auto) 3076.3 /hpf (NEGATIVE) 07/31/18 19:14 Ur Random Sodium < 18 MMOL/L (40-220) L 08/01/18 04:21 Ur Random Potassium 60.4 MMOL/L (25-125) 08/01/18 04:21 Ur Random Chloride 18 MMOL/L (110-250) L 08/01/18 04:21 Influenza A (Rapid) Negative 08/01/18 04:21 Influenza B (Rapid) Negative 08/01/18 04:21 cxr: no sig chf tele: sr ecg: sr, pvcs, nl qtc, no ischemic changes echo 06/2015: mild-mod dec lvef, global hk, rv tds, lae, mild tr, rvsp 40-50 a/p: 78 m hx cad, syst chf, htn, PAT, ckd here with fever, suprapubic pain. uti, sepsis: -abx per ID syst chf: -stable vol status -check updated echo -cont bb. not on constantine 2/2 ckd. -at home taking lasix 20 qd/40 qd alternating days-->holding for now due to sepsis. Monitor vol status. cad: -stable, no signs acs, no anginal sxs -cont bb, asa positive trops: -borderline trop elevation with flat trend, similar to 2012 baseline values, not c/w acs htn: -cont bb pat: -in sr here, cont bb ckd: -cr near baseline
[2018-08-01] MEDS ORDERED: SODIUM CHLORIDE 0.9% 500 ML INFUS.BAG IV ONE (10:56)
--- NOTE | 2018-08-01 10:57 | PN ---
Physical Exam: SUBJECTIVE: Patient seen and examined; no fevers or chills ; did have rigors yesterday. OBJECTIVE: Vital Signs Period Temp Pulse Resp BP Sys/Rivera Pulse Ox Last 24 Hr 97.6 F-103.9 F 90-98 15-22 96-146/58-91 91-99 GENERAL: The patient is awake, alert, and fully oriented, in no acute distress. LUNGS: Breath sounds equal, clear to auscultation bilaterally, no wheezes, no crackles, no accessory muscle use. HEART: Regular rate and rhythm, S1, S2 without murmur, rub or gallop. ABDOMEN: Soft, nontender, nondistended, normoactive bowel sounds, no guarding, no rebound, no hepatosplenomegaly, no masses. Back;b /l flank pain EXTREMITIES: 2+ pulses, warm, well-perfused, no edema. NEUROLOGICAL: Cranial nerves II through XII grossly intact. Normal speech, gait not observed. PSYCH: Normal mood, normal affect. SKIN: Warm, dry, normal turgor, no rashes or lesions noted Laboratory Results - last 24 hr 07/31/18 07/31/18 07/31/18 16:13 17:29 17:29 WBC 8.8 RBC 5.68 H Hgb 12.2 Hct 40.9 D MCV 71.9 L MCH 21.5 L D MCHC 29.8 L RDW 19.4 H Plt Count 184 D MPV 8.8 D Absolute Neuts (auto) 8.3 H Neutrophils % 93.7 H D Neutrophils % (Manual) 71.0 Band Neutrophils % 22.0 Lymphocytes % 4.6 L D Lymphocytes % (Manual) 6.0 L Monocytes % 1.0 L D Monocytes % (Manual) 0 L Eosinophils % 0.5 D Eosinophils % (Manual) 1.0 Basophils % 0.2 Basophils % (Manual) 0.0 Nucleated RBC % 0 Hypochromia 1+ Platelet Estimate Adequate Anisocytosis 1+ PT with INR 13.70 H INR 1.16 H PTT (Actin FS) 29.2 VBG pH POC VBG pCO2 POC VBG pO2 VBG HCO3 VBG O2 Sat ([place]odi) VBG Base Excess Sodium Potassium Chloride Carbon Dioxide Anion Gap BUN Creatinine Creat Clearance w eGFR POC Glucometer Random Glucose Hemoglobin A1c % Lactic Acid Calcium Phosphorus Magnesium Total Bilirubin AST ALT Alkaline Phosphatase Troponin I 0.12 H B-Natriuretic Peptide Total Protein Albumin Triglycerides Cholesterol Total LDL Cholesterol HDL Cholesterol TSH Urine Color Urine Appearance Urine pH Ur Specific [place] Urine Protein Urine Glucose (UA) Urine Ketones Urine Blood Urine Nitrite Urine Bilirubin Urine Urobilinogen Ur Leukocyte Esterase Urine WBC (Auto) Urine RBC (Auto) Urine Casts (Auto) U Epithel Cells (Auto) Urine Bacteria (Auto) Ur Random Sodium Ur Random Potassium Ur Random Chloride Influenza A (Rapid) Influenza B (Rapid) 07/31/18 07/31/18 07/31/18 17:29 17:29 17:50 WBC RBC Hgb Hct MCV MCH MCHC RDW Plt Count MPV Absolute Neuts (auto) Neutrophils % Neutrophils % (Manual) Band Neutrophils % Lymphocytes % Lymphocytes % (Manual) Monocytes % Monocytes % (Manual) Eosinophils % Eosinophils % (Manual) Basophils % Basophils % (Manual) Nucleated RBC % Hypochromia Platelet Estimate Anisocytosis PT with INR INR PTT (Actin FS) VBG pH 7.35 POC VBG pCO2 41.8 POC VBG pO2 21.7 L VBG HCO3 22.2 L VBG O2 Sat (Jodi) 29.7 L VBG Base Excess -2.8 L Sodium 138 Potassium 4.2 Chloride 107 Carbon Dioxide 22 Anion Gap 9 BUN 22 H Creatinine 2.0 H Creat Clearance w eGFR 32.65 POC Glucometer Random Glucose 223 H Hemoglobin A1c % Lactic Acid 3.6 H* Calcium 8.1 L Phosphorus Magnesium Total Bilirubin 1.0 AST 17 ALT 20 Alkaline Phosphatase 193 H Troponin I B-Natriuretic Peptide Total Protein 7.3 Albumin 3.0 L Triglycerides Cholesterol Total LDL Cholesterol HDL Cholesterol TSH Urine Color Urine Appearance Urine pH Ur Specific [place] Urine Protein Urine Glucose (UA) Urine Ketones Urine Blood Urine Nitrite Urine Bilirubin Urine Urobilinogen Ur Leukocyte Esterase Urine WBC (Auto) Urine RBC (Auto) Urine Casts (Auto) U Epithel Cells (Auto) Urine Bacteria (Auto) Ur Random Sodium Ur Random Potassium Ur Random Chloride Influenza A (Rapid) Influenza B (Rapid) 07/31/18 07/31/18 08/01/18 19:14 21:12 02:11 WBC RBC Hgb Hct MCV MCH MCHC RDW Plt Count MPV Absolute Neuts (auto) Neutrophils % Neutrophils % (Manual) Band Neutrophils % Lymphocytes % Lymphocytes % (Manual) Monocytes % Monocytes % (Manual) Eosinophils % Eosinophils % (Manual) Basophils % Basophils % (Manual) Nucleated RBC % Hypochromia Platelet Estimate Anisocytosis PT with INR INR PTT (Actin FS) VBG pH POC VBG pCO2 POC VBG pO2 VBG HCO3 VBG O2 Sat (Jodi) VBG Base Excess Sodium Potassium Chloride Carbon Dioxide Anion Gap BUN Creatinine Creat Clearance w eGFR POC Glucometer Random Glucose Hemoglobin A1c % Lactic Acid 2.4 H* Calcium Phosphorus Magnesium Total Bilirubin AST ALT Alkaline Phosphatase Troponin I 0.19 H B-Natriuretic Peptide Total Protein Albumin Triglycerides Cholesterol Total LDL Cholesterol HDL Cholesterol TSH Urine Color [place] Urine Appearance Cloudy Urine pH 5.5 Ur Specific [place] 1.013 Urine Protein 3+ H Urine Glucose (UA) 2+ H Urine Ketones Negative Urine Blood 3+ H Urine Nitrite Negative Urine Bilirubin Negative Urine Urobilinogen 1.0 Ur Leukocyte Esterase 1+ H Urine WBC (Auto) 94 Urine RBC (Auto) 51 Urine Casts (Auto) 5 U Epithel Cells (Auto) 0.5 Urine Bacteria (Auto) 3076.3 Ur Random Sodium Ur Random Potassium Ur Random Chloride Influenza A (Rapid) Influenza B (Rapid) 08/01/18 08/01/18 08/01/18 04:21 04:21 05:47 WBC RBC Hgb Hct MCV MCH MCHC RDW Plt Count MPV Absolute Neuts (auto) Neutrophils % Neutrophils % (Manual) Band Neutrophils % Lymphocytes % Lymphocytes % (Manual) Monocytes % Monocytes % (Manual) Eosinophils % Eosinophils % (Manual) Basophils % Basophils % (Manual) Nucleated RBC % Hypochromia Platelet Estimate Anisocytosis PT with INR INR PTT (Actin FS) VBG pH POC VBG pCO2 POC VBG pO2 VBG HCO3 VBG O2 Sat (Jodi) VBG Base Excess Sodium Potassium Chloride Carbon Dioxide Anion Gap BUN Creatinine Creat Clearance w eGFR POC Glucometer 170 Random Glucose Hemoglobin A1c % Lactic Acid Calcium Phosphorus Magnesium Total Bilirubin AST ALT Alkaline Phosphatase Troponin I B-Natriuretic Peptide Total Protein Albumin Triglycerides Cholesterol Total LDL Cholesterol HDL Cholesterol TSH Urine Color Urine Appearance Urine pH Ur Specific [place] Urine Protein Urine Glucose (UA) Urine Ketones Urine Blood Urine Nitrite Urine Bilirubin Urine Urobilinogen Ur Leukocyte Esterase Urine WBC (Auto) Urine RBC (Auto) Urine Casts (Auto) U Epithel Cells (Auto) Urine Bacteria (Auto) Ur Random Sodium < 18 L Ur Random Potassium 60.4 Ur Random Chloride 18 L Influenza A (Rapid) Negative Influenza B (Rapid) Negative 08/01/18 08/01/18 08/01/18 08:32 08:32 08:32 WBC 14.2 H RBC 5.87 H Hgb 12.4 Hct 41.6 MCV 70.8 L MCH 21.1 L MCHC 29.8 L RDW 19.8 H Plt Count 180 MPV 8.5 Absolute Neuts (auto) 12.6 H Neutrophils % 89.2 H Neutrophils % (Manual) Band Neutrophils % Lymphocytes % 5.2 L Lymphocytes % (Manual) Monocytes % 4.8 D Monocytes % (Manual) Eosinophils % 0.6 Eosinophils % (Manual) Basophils % 0.2 Basophils % (Manual) Nucleated RBC % 0 Hypochromia Platelet Estimate Anisocytosis PT with INR INR PTT (Actin FS) VBG pH POC VBG pCO2 POC VBG pO2 VBG HCO3 VBG O2 Sat (Jodi) VBG Base Excess Sodium Potassium Chloride Carbon Dioxide Anion Gap BUN Creatinine Creat Clearance w eGFR POC Glucometer Random Glucose Hemoglobin A1c % 10.9 H Lactic Acid Calcium Phosphorus Magnesium Total Bilirubin AST ALT Alkaline Phosphatase Troponin I 0.15 H B-Natriuretic Peptide 2010.9 H Total Protein Albumin Triglycerides 132 Cholesterol 93 Total LDL Cholesterol 40 HDL Cholesterol 34 L TSH Urine Color Urine Appearance Urine pH Ur Specific [place] Urine Protein Urine Glucose (UA) Urine Ketones Urine Blood Urine Nitrite Urine Bilirubin Urine Urobilinogen Ur Leukocyte Esterase Urine WBC (Auto) Urine RBC (Auto) Urine Casts (Auto) U Epithel Cells (Auto) Urine Bacteria (Auto) Ur Random Sodium Ur Random Potassium Ur Random Chloride Influenza A (Rapid) Influenza B (Rapid) 08/01/18 08/01/18 08/01/18 08:32 08:32 08:32 WBC RBC Hgb Hct MCV MCH MCHC RDW Plt Count MPV Absolute Neuts (auto) Neutrophils % Neutrophils % (Manual) Band Neutrophils % Lymphocytes % Lymphocytes % (Manual) Monocytes % Monocytes % (Manual) Eosinophils % Eosinophils % (Manual) Basophils % Basophils % (Manual) Nucleated RBC % Hypochromia Platelet Estimate Anisocytosis PT with INR INR PTT (Actin FS) 33.1 VBG pH POC VBG pCO2 POC VBG pO2 VBG HCO3 VBG O2 Sat (Jodi) VBG Base Excess Sodium 144 Potassium 3.6 Chloride 111 H Carbon Dioxide 24 Anion Gap 8 BUN 26 H Creatinine 1.9 H Creat Clearance w eGFR 34.64 POC Glucometer Random Glucose 123 H Hemoglobin A1c % Lactic Acid 3.0 H* Calcium 7.1 L Phosphorus 2.4 L Magnesium 2.0 Total Bilirubin 0.7 AST 20 ALT 15 Alkaline Phosphatase 115 Troponin I B-Natriuretic Peptide Total Protein 6.5 Albumin 2.8 L Triglycerides Cholesterol 88 Total LDL Cholesterol HDL Cholesterol TSH 0.78 Urine Color Urine Appearance Urine pH Ur Specific [place] Urine Protein Urine Glucose (UA) Urine Ketones Urine Blood Urine Nitrite Urine Bilirubin Urine Urobilinogen Ur Leukocyte Esterase Urine WBC (Auto) Urine RBC (Auto) Urine Casts (Auto) U Epithel Cells (Auto) Urine Bacteria (Auto) Ur Random Sodium Ur Random Potassium Ur Random Chloride Influenza A (Rapid) Influenza B (Rapid) Active Medications Generic Name Dose Route Start Last Admin Trade Name Freq PRN Reason Stop Dose Admin Acetaminophen 650 mg 08/01/18 02:16 Tylenol - PO Q6H PRN FEVER Aspirin 81 mg 08/02/18 10:00 Asa - PO DAILY RAYMOND Heparin Sodium (Porcine) 5,000 unit 08/01/18 06:00 08/01/18 06:04 Heparin - SQ 5,000 unit TID RAYMOND Administration Sodium Chloride 1,000 mls @ 83 mls/hr 08/01/18 02:30 08/01/18 02:31 Normal Saline - IV 83 mls/hr ASDIR RAYMOND Administration Piperacillin Sod/Tazobactam 50 mls @ 100 mls/hr 08/01/18 03:30 08/01/18 10:26 Sod 3.375 gm/ Dextrose IVPB 08/01/18 18:29 100 mls/hr Q8H-IV RAYMOND Administration Protocol Insulin Aspart 1 vial 08/01/18 07:00 08/01/18 06:03 Novolog Vial Sliding Scale - SQ 2 units ACHS RAYMOND Administration Protocol Levothyroxine Sodium 25 mcg 08/01/18 07:00 08/01/18 06:03 Synthroid - PO 25 mcg DAILY@0700 RAYMOND Administration Metoprolol Tartrate 25 mg 08/01/18 10:00 08/01/18 10:27 Lopressor - PO 25 mg BID RAYMOND Administration Pantoprazole Sodium 20 mg 08/01/18 10:00 08/01/18 10:27 Protonix - PO 20 mg DAILY RAYMOND Administration Vancomycin HCl 1,000 mg 08/01/18 17:30 Vancomycin (Pre-Docked) IVPB 08/01/18 17:31 ONCE ONE Protocol ASSESSMENT/PLAN: This is a 78 year old male with a history of paroxysmal atrial tachycardia, CHF , HTN, hypothyroid, vertigo, who presents with fever, rigor, dysuria, found to be septic with urinary tract infection. #severe sepsis secondary to urinary tract infection: -BP stable; lactic acid trending up s/p bolus of NS -IVF hydration recheck lactic acid stat, abg, bp -blood culture, urine culutre, IV antibiotics ceftriaxone -CT abdomen /pelvis #hx of paroxysmal atrial tachycardia: repeat ecg nsr -cont BB #MARY ML due to sepsis; -urine studies -I/O -f/u scan for any signs of obstruction #urinary retention after bladder scan with UTI #elevated troponin in the setting of sepsis; ML demand ischemia; -ASA; #CHF hx on lasix at home -baseline ECHO -hold diuretics due to sepsis -I/O, daily weights -monitor for overload #HTN: -cont BB #Hypothyroid: -cont levothyroxine #Vertigo: -meclizine #VTE: heparin sq #GI ppl; protonix Disposition: tele monitoring Visit type - Emergency Visit Emergency Visit: Yes ED Registration Date: 07/31/18 Care time: The patient presented to the Emergency Department on the above date and was hospitalized for further evaluation of their emergent condition. - New Patient This patient is new to me today: Yes Date on this admission: 08/01/18 - Critical Care Critical Care patient: No
--- NOTE | 2018-08-01 10:58 | PN ---
Progress Note (short form) - Note Progress Note: ID CONSULT DICTATED R PYELONEPHRITIS R/O SEPSIS SECONDARY TO SOURCE LACTIC ACIDOSIS AZOTEMIA AWAIT C/S EMPIRIC CEFTRIAXONE
[2018-08-01] MEDS: ACETAMINOPHEN 325 MG TABLET (FP) PO PRN ×2 (11:17→22:06)
--- NOTE | 2018-08-01 11:25 | CONS ---
DATE OF CONSULTATION: DATE OF DICTATION: 08/01/2018 HISTORY: The patient is a 78-year-old male who was evaluated for pyelonephritis. He was admitted to the hospital on July 31, 2018 with a 1-day history of suprapubic pain, right-sided back pain, and dysuria. In the emergency room, he was febrile to 103 and was hypotensive. A CAT scan of the abdomen and pelvis showed inflammatory changes involving the right kidney consistent with pyelonephritis. Cultures were obtained. He was empirically treated with vancomycin and Zosyn. At the present time, he complains of pain mostly in the right flank area. Continues to complain of dysuria. He denies any hematuria. He denies any recent urinary tract infection or history of urinary tract infections. No recent hospitalizations or antibiotic therapy. No history of resistant urinary tract pathogens. PAST MEDICAL HISTORY: Positive for coronary artery disease, congestive heart failure, hypertension, hypothyroidism, atrial tachycardia, small bowel obstruction. PAST SURGICAL HISTORY: Status post hiatal hernia repair with mesh, cholecystectomy. ALLERGIES: No known allergies. MEDICATIONS: Lopressor, Synthroid, Antivert, Benicar. SOCIAL HISTORY: He resides in the community. No recent hospitalizations. He is a former smoker. Quit approximately 15 years ago. No history of illicit drug use or alcohol abuse. SYSTEMS REVIEW: Neurologic: No loss of consciousness, seizure activity, focal weakness. Cardiac: Negative chest pain or palpitations. Respiratory: Negative cough or sputum production. Gastrointestinal: Negative vomiting or diarrhea. Genitourinary: As per HPI. LABORATORY DATA: White count 14.2 with 89 neutrophils, 5 lymphocytes, 4 monocytes, hematocrit 41.6, platelet count 180. BUN 26, creatinine 1.9. Lactic acid 3. Urinalysis 94 white cells, 51 red cells. Blood and urine culture are pending. CAT scan as described. Chest x-ray negative for acute infiltrate. PHYSICAL EXAMINATION: General: He is awake and alert. He is in no acute distress. He is not acutely toxic appearing. Vital Signs: Temperature 97.6, blood pressure 115/67, pulse 98 and regular, respirations 18 per minute. HEENT: Sclerae anicteric. Heart: Sounds S1, S2. No murmur. Lungs: Clear. Abdomen: Obese, soft, nontender. There is right CVA tenderness to palpation. No suprapubic tenderness. Extremities: Have 1+ edema. Negative Homans sign. IMPRESSION: 1. Acute right pyelonephritis. 2. Rule out sepsis secondary to gastrointestinal source. 3. Lactic acidosis. 4. Azotemia. PLAN: The patient has been given STAT doses of vancomycin and Zosyn. We will await cultures. Continue ceftriaxone 2 g IV piggyback daily pending sepsis workup. Monitor blood pressure. Further recommendations pending cultures. We will follow. Thank you for the kind referral. SYLVIA CORREIA M.D. [id number]
[2018-08-01 11:38] LABS: ARTERIAL BLD GAS O2 SATURATION 93.3 % (95-98); ARTERIAL BLOOD GAS BASE EXCESS -2.9 meq/l (-2-2); ARTERIAL BLOOD GAS PCO2 33.7 mmHg (35-45); ARTERIAL BLOOD GAS PO2 68.6 mmHg (80-105); ARTERIAL BLOOD GAS pH 7.41 (7.35-7.45)
[2018-08-01 11:41] LABS: ALLENS TEST POSITIVE
--- NOTE | 2018-08-01 11:47 | EKG ---
Test Reason : Blood Pressure : / mmHG Vent. Rate : 115 BPM Atrial Rate : 115 BPM P-R Int : 176 ms QRS Dur : 094 ms QT Int : 342 ms P-R-T Axes : 084 -50 035 degrees QTc Int : 473 ms SINUS TACHYCARDIA WITH OCCASIONAL PREMATURE VENTRICULAR COMPLEXES LEFT AXIS DEVIATION PULMONARY DISEASE PATTERN SEPTAL INFARCT , AGE UNDETERMINED ABNORMAL ECG WHEN COMPARED WITH ECG OF 01-AUG-2018 04:01, PREMATURE VENTRICULAR COMPLEXES ARE NOW PRESENT SEPTAL INFARCT IS NOW PRESENT Confirmed by DARLYN LOGAN MD ([id number]) on 08/01/2018 11:47:12 AM Referred By: Confirmed By:DARLYN LOGAN MD
--- NOTE | 2018-08-01 11:47 | EKG ---
Test Reason : Blood Pressure : / mmHG Vent. Rate : 088 BPM Atrial Rate : 088 BPM P-R Int : 184 ms QRS Dur : 092 ms QT Int : 374 ms P-R-T Axes : 036 -43 020 degrees QTc Int : 452 ms NORMAL SINUS RHYTHM LEFT AXIS DEVIATION ABNORMAL ECG WHEN COMPARED WITH ECG OF 31-JUL-2018 16:49, PREVIOUS ECG HAS UNDETERMINED RHYTHM, NEEDS REVIEW Confirmed by DOREEN WILD, DARLYN ([id number]) on 08/01/2018 11:47:27 AM Referred By: Confirmed By:DARLYN LOGAN MD
--- NOTE | 2018-08-01 11:56 | PN ---
Teaching Attending Note Name of Resident: Valentina Garcia ATTENDING PHYSICIAN STATEMENT I saw and evaluated the patient. I reviewed the resident's note and discussed the case with the resident. I agree with the resident's findings and plan as documented with exceptions below. SUBJECTIVE: patient seen and examined. c/o lower abdominal pain and right lower back pain. Denies any chest pain or pressure, palpitations, dyspnea or dizziness OBJECTIVE: Vital Signs Period Temp Pulse Resp BP Sys/Rivera Pulse Ox Last 24 Hr 97.4 F-103.9 F 90-115 15-22 96-146/58-91 91-99 Intake & Output 07/29/18 07/30/18 07/31/18 08/01/18 23:59 23:59 23:59 23:59 Intake Total 796 Output Total 300 Balance 496 Weight 221 lb 233 lb General: sitting in bed, mild tachypnea Neck: soft, supple, no JVD visualized chest: decreased air entry all over, no rales or wheezing Abdomen;Soft, suprapubic and Right CVA tenderness, obese, positive bowel sounds Extremities: no pedal edema currently Home Medications Medication Instructions Recorded Dexlansoprazole [Dexilant] 30 mg PO DAILY 10/17/11 Levothyroxine [Synthroid] 75 mcg PO DAILY 02/06/12 Meclizine HCl [Antivert] 12.5 mg PO TID 02/06/12 Olmesartan Medoxomil [Benicar] 20 mg PO DAILY 04/09/12 Allopurinol 300 mg PO DAILY 08/01/18 Amlodipine Besylate 5 mg PO DAILY 08/01/18 Furosemide [Lasix] 20 mg PO ASDIR 08/01/18 Furosemide [Lasix] 40 mg PO ASDIR 08/01/18 Gabapentin 600 mg PO TID 08/01/18 Glimepiride 2 mg PO BID 08/01/18 Linaclotide [Linzess] 72 mcg PO DAILY 08/01/18 Metoprolol Succinate [Toprol Xl] 25 mg PO DAILY 08/01/18 Ranitidine [Zantac -] 150 mg PO BID 08/01/18 Active Medications Acetaminophen (Tylenol -) 650 mg PO Q6H PRN PRN Reason: FEVER Last Admin: 08/01/18 11:17 Dose: 650 mg Aspirin (Asa -) 81 mg PO DAILY [facility] Heparin Sodium (Porcine) (Heparin -) 5,000 unit SQ TID [facility] Last Admin: 08/01/18 06:04 Dose: 5,000 unit Sodium Chloride (Normal Saline -) 1,000 mls @ 83 mls/hr IV ASDIR [facility] Last Admin: 08/01/18 02:31 Dose: 83 mls/hr Ceftriaxone Sodium (Ceftriaxone 2 Gm-D5w Bag) 2 gm in 50 mls @ 100 mls/hr IVPB DAILY [facility]; Protocol Insulin Aspart (Novolog Vial Sliding Scale -) 1 vial SQ ACHS [facility]; Protocol Last Admin: 08/01/18 11:28 Dose: 2 units Levothyroxine Sodium (Synthroid -) 75 mcg PO DAILY@0700 [facility] Metoprolol Tartrate (Lopressor -) 25 mg PO BID [facility] Last Admin: 08/01/18 10:27 Dose: 25 mg Pantoprazole Sodium (Protonix -) 20 mg PO DAILY [facility] Last Admin: 08/01/18 10:27 Dose: 20 mg Sodium Chloride (Normal Saline -) 250 ml IV ONCE ONE Stop: 08/01/18 10:57 Vancomycin HCl (Vancomycin (Pre-Docked)) 1,000 mg IVPB ONCE ONE; Protocol Stop: 08/01/18 17:31 Laboratory Results - last 24 hr 07/31/18 07/31/18 07/31/18 16:13 17:29 17:29 WBC 8.8 RBC 5.68 H Hgb 12.2 Hct 40.9 D MCV 71.9 L MCH 21.5 L D MCHC 29.8 L RDW 19.4 H Plt Count 184 D MPV 8.8 D Absolute Neuts (auto) 8.3 H Neutrophils % 93.7 H D Neutrophils % (Manual) 71.0 Band Neutrophils % 22.0 Lymphocytes % 4.6 L D Lymphocytes % (Manual) 6.0 L Monocytes % 1.0 L D Monocytes % (Manual) 0 L Eosinophils % 0.5 D Eosinophils % (Manual) 1.0 Basophils % 0.2 Basophils % (Manual) 0.0 Nucleated RBC % 0 Hypochromia 1+ Platelet Estimate Adequate Anisocytosis 1+ PT with INR 13.70 H INR 1.16 H PTT (Actin FS) 29.2 Anticoagulation Therapy Puncture Site ABG pH ABG pCO2 at Pt Temp ABG pO2 at Pt Temp ABG HCO3 ABG O2 Sat (Measured) ABG O2 Content ABG Base Excess Elmer Test VBG pH POC VBG pCO2 POC VBG pO2 VBG HCO3 VBG O2 Sat (Jodi) VBG Base Excess O2 Delivery Device Oxygen Flow Rate Vent Mode Vent Rate Mechanical Rate Pressure Support Vent Sodium Potassium Chloride Carbon Dioxide Anion Gap BUN Creatinine Creat Clearance w eGFR POC Glucometer Random Glucose Hemoglobin A1c % Lactic Acid Calcium Phosphorus Magnesium Total Bilirubin AST ALT Alkaline Phosphatase Troponin I 0.12 H B-Natriuretic Peptide Total Protein Albumin Triglycerides Cholesterol Total LDL Cholesterol HDL Cholesterol TSH Urine Color Urine Appearance Urine pH Ur Specific [place] Urine Protein Urine Glucose (UA) Urine Ketones Urine Blood Urine Nitrite Urine Bilirubin Urine Urobilinogen Ur Leukocyte Esterase Urine WBC (Auto) Urine RBC (Auto) Urine Casts (Auto) U Epithel Cells (Auto) Urine Bacteria (Auto) Ur Random Sodium Ur Random Potassium Ur Random Chloride Influenza A (Rapid) Influenza B (Rapid) 07/31/18 07/31/18 07/31/18 17:29 17:29 17:50 WBC RBC Hgb Hct MCV MCH MCHC RDW Plt Count MPV Absolute Neuts (auto) Neutrophils % Neutrophils % (Manual) Band Neutrophils % Lymphocytes % Lymphocytes % (Manual) Monocytes % Monocytes % (Manual) Eosinophils % Eosinophils % (Manual) Basophils % Basophils % (Manual) Nucleated RBC % Hypochromia Platelet Estimate Anisocytosis PT with INR INR PTT (Actin FS) Anticoagulation Therapy Puncture Site ABG pH ABG pCO2 at Pt Temp ABG pO2 at Pt Temp ABG HCO3 ABG O2 Sat (Measured) ABG O2 Content ABG Base Excess Elmer Test VBG pH 7.35 POC VBG pCO2 41.8 POC VBG pO2 21.7 L VBG HCO3 22.2 L VBG O2 Sat (Jodi) 29.7 L VBG Base Excess -2.8 L O2 Delivery Device Oxygen Flow Rate Vent Mode Vent Rate Mechanical Rate Pressure Support Vent Sodium 138 Potassium 4.2 Chloride 107 Carbon Dioxide 22 Anion Gap 9 BUN 22 H Creatinine 2.0 H Creat Clearance w eGFR 32.65 POC Glucometer Random Glucose 223 H Hemoglobin A1c % Lactic Acid 3.6 H* Calcium 8.1 L Phosphorus Magnesium Total Bilirubin 1.0 AST 17 ALT 20 Alkaline Phosphatase 193 H Troponin I B-Natriuretic Peptide Total Protein 7.3 Albumin 3.0 L Triglycerides Cholesterol Total LDL Cholesterol HDL Cholesterol TSH Urine Color Urine Appearance Urine pH Ur Specific [place] Urine Protein Urine Glucose (UA) Urine Ketones Urine Blood Urine Nitrite Urine Bilirubin Urine Urobilinogen Ur Leukocyte Esterase Urine WBC (Auto) Urine RBC (Auto) Urine Casts (Auto) U Epithel Cells (Auto) Urine Bacteria (Auto) Ur Random Sodium Ur Random Potassium Ur Random Chloride Influenza A (Rapid) Influenza B (Rapid) 07/31/18 07/31/18 08/01/18 19:14 21:12 02:11 WBC RBC Hgb Hct MCV MCH MCHC RDW Plt Count MPV Absolute Neuts (auto) Neutrophils % Neutrophils % (Manual) Band Neutrophils % Lymphocytes % Lymphocytes % (Manual) Monocytes % Monocytes % (Manual) Eosinophils % Eosinophils % (Manual) Basophils % Basophils % (Manual) Nucleated RBC % Hypochromia Platelet Estimate Anisocytosis PT with INR INR PTT (Actin FS) Anticoagulation Therapy Puncture Site ABG pH ABG pCO2 at Pt Temp ABG pO2 at Pt Temp ABG HCO3 ABG O2 Sat (Measured) ABG O2 Content ABG Base Excess Elmer Test VBG pH POC VBG pCO2 POC VBG pO2 VBG HCO3 VBG O2 Sat (Jodi) VBG Base Excess O2 Delivery Device Oxygen Flow Rate Vent Mode Vent Rate Mechanical Rate Pressure Support Vent Sodium Potassium Chloride Carbon Dioxide Anion Gap BUN Creatinine Creat Clearance w eGFR POC Glucometer Random Glucose Hemoglobin A1c % Lactic Acid 2.4 H* Calcium Phosphorus Magnesium Total Bilirubin AST ALT Alkaline Phosphatase Troponin I 0.19 H B-Natriuretic Peptide Total Protein Albumin Triglycerides Cholesterol Total LDL Cholesterol HDL Cholesterol TSH Urine Color [place] Urine Appearance Cloudy Urine pH 5.5 Ur Specific [place] 1.013 Urine Protein 3+ H Urine Glucose (UA) 2+ H Urine Ketones Negative Urine Blood 3+ H Urine Nitrite Negative Urine Bilirubin Negative Urine Urobilinogen 1.0 Ur Leukocyte Esterase 1+ H Urine WBC (Auto) 94 Urine RBC (Auto) 51 Urine Casts (Auto) 5 U Epithel Cells (Auto) 0.5 Urine Bacteria (Auto) 3076.3 Ur Random Sodium Ur Random Potassium Ur Random Chloride Influenza A (Rapid) Influenza B (Rapid) 08/01/18 08/01/18 08/01/18 04:21 04:21 05:47 WBC RBC Hgb Hct MCV MCH MCHC RDW Plt Count MPV Absolute Neuts (auto) Neutrophils % Neutrophils % (Manual) Band Neutrophils % Lymphocytes % Lymphocytes % (Manual) Monocytes % Monocytes % (Manual) Eosinophils % Eosinophils % (Manual) Basophils % Basophils % (Manual) Nucleated RBC % Hypochromia Platelet Estimate Anisocytosis PT with INR INR PTT (Actin FS) Anticoagulation Therapy Puncture Site ABG pH ABG pCO2 at Pt Temp ABG pO2 at Pt Temp ABG HCO3 ABG O2 Sat (Measured) ABG O2 Content ABG Base Excess Elmer Test VBG pH POC VBG pCO2 POC VBG pO2 VBG HCO3 VBG O2 Sat (Jodi) VBG Base Excess O2 Delivery Device Oxygen Flow Rate Vent Mode Vent Rate Mechanical Rate Pressure Support Vent Sodium Potassium Chloride Carbon Dioxide Anion Gap BUN Creatinine Creat Clearance w eGFR POC Glucometer 170 Random Glucose Hemoglobin A1c % Lactic Acid Calcium Phosphorus Magnesium Total Bilirubin AST ALT Alkaline Phosphatase Troponin I B-Natriuretic Peptide Total Protein Albumin Triglycerides Cholesterol Total LDL Cholesterol HDL Cholesterol TSH Urine Color Urine Appearance Urine pH Ur Specific [place] Urine Protein Urine Glucose (UA) Urine Ketones Urine Blood Urine Nitrite Urine Bilirubin Urine Urobilinogen Ur Leukocyte Esterase Urine WBC (Auto) Urine RBC (Auto) Urine Casts (Auto) U Epithel Cells (Auto) Urine Bacteria (Auto) Ur Random Sodium < 18 L Ur Random Potassium 60.4 Ur Random Chloride 18 L Influenza A (Rapid) Negative Influenza B (Rapid) Negative 08/01/18 08/01/18 08/01/18 08:32 08:32 08:32 WBC 14.2 H RBC 5.87 H Hgb 12.4 Hct 41.6 MCV 70.8 L MCH 21.1 L MCHC 29.8 L RDW 19.8 H Plt Count 180 MPV 8.5 Absolute Neuts (auto) 12.6 H Neutrophils % 89.2 H Neutrophils % (Manual) Band Neutrophils % Lymphocytes % 5.2 L Lymphocytes % (Manual) Monocytes % 4.8 D Monocytes % (Manual) Eosinophils % 0.6 Eosinophils % (Manual) Basophils % 0.2 Basophils % (Manual) Nucleated RBC % 0 Hypochromia Platelet Estimate Anisocytosis PT with INR INR PTT (Actin FS) Anticoagulation Therapy Puncture Site ABG pH ABG pCO2 at Pt Temp ABG pO2 at Pt Temp ABG HCO3 ABG O2 Sat (Measured) ABG O2 Content ABG Base Excess Elmer Test VBG pH POC VBG pCO2 POC VBG pO2 VBG HCO3 VBG O2 Sat (Jodi) VBG Base Excess O2 Delivery Device Oxygen Flow Rate Vent Mode Vent Rate Mechanical Rate Pressure Support Vent Sodium Potassium Chloride Carbon Dioxide Anion Gap BUN Creatinine Creat Clearance w eGFR POC Glucometer Random Glucose Hemoglobin A1c % 10.9 H Lactic Acid Calcium Phosphorus Magnesium Total Bilirubin AST ALT Alkaline Phosphatase Troponin I 0.15 H B-Natriuretic Peptide 2010.9 H Total Protein Albumin Triglycerides 132 Cholesterol 93 Total LDL Cholesterol 40 HDL Cholesterol 34 L TSH Urine Color Urine Appearance Urine pH Ur Specific [place] Urine Protein Urine Glucose (UA) Urine Ketones Urine Blood Urine Nitrite Urine Bilirubin Urine Urobilinogen Ur Leukocyte Esterase Urine WBC (Auto) Urine RBC (Auto) Urine Casts (Auto) U Epithel Cells (Auto) Urine Bacteria (Auto) Ur Random Sodium Ur Random Potassium Ur Random Chloride Influenza A (Rapid) Influenza B (Rapid) 08/01/18 08/01/18 08/01/18 08:32 08:32 08:32 WBC RBC Hgb Hct MCV MCH MCHC RDW Plt Count MPV Absolute Neuts (auto) Neutrophils % Neutrophils % (Manual) Band Neutrophils % Lymphocytes % Lymphocytes % (Manual) Monocytes % Monocytes % (Manual) Eosinophils % Eosinophils % (Manual) Basophils % Basophils % (Manual) Nucleated RBC % Hypochromia Platelet Estimate Anisocytosis PT with INR INR PTT (Actin FS) 33.1 Anticoagulation Therapy Puncture Site ABG pH ABG pCO2 at Pt Temp ABG pO2 at Pt Temp ABG HCO3 ABG O2 Sat (Measured) ABG O2 Content ABG Base Excess Elmer Test VBG pH POC VBG pCO2 POC VBG pO2 VBG HCO3 VBG O2 Sat (Jodi) VBG Base Excess O2 Delivery Device Oxygen Flow Rate Vent Mode Vent Rate Mechanical Rate Pressure Support Vent Sodium 144 Potassium 3.6 Chloride 111 H Carbon Dioxide 24 Anion Gap 8 BUN 26 H Creatinine 1.9 H Creat Clearance w eGFR 34.64 POC Glucometer Random Glucose 123 H Hemoglobin A1c % Lactic Acid 3.0 H* Calcium 7.1 L Phosphorus 2.4 L Magnesium 2.0 Total Bilirubin 0.7 AST 20 ALT 15 Alkaline Phosphatase 115 Troponin I B-Natriuretic Peptide Total Protein 6.5 Albumin 2.8 L Triglycerides Cholesterol 88 Total LDL Cholesterol HDL Cholesterol TSH 0.78 Urine Color Urine Appearance Urine pH Ur Specific [place] Urine Protein Urine Glucose (UA) Urine Ketones Urine Blood Urine Nitrite Urine Bilirubin Urine Urobilinogen Ur Leukocyte Esterase Urine WBC (Auto) Urine RBC (Auto) Urine Casts (Auto) U Epithel Cells (Auto) Urine Bacteria (Auto) Ur Random Sodium Ur Random Potassium Ur Random Chloride Influenza A (Rapid) Influenza B (Rapid) 08/01/18 08/01/18 08/01/18 11:19 11:20 11:35 WBC RBC Hgb Hct MCV MCH MCHC RDW Plt Count MPV Absolute Neuts (auto) Neutrophils % Neutrophils % (Manual) Band Neutrophils % Lymphocytes % Lymphocytes % (Manual) Monocytes % Monocytes % (Manual) Eosinophils % Eosinophils % (Manual) Basophils % Basophils % (Manual) Nucleated RBC % Hypochromia Platelet Estimate Anisocytosis PT with INR INR PTT (Actin FS) Anticoagulation Therapy No Result Required. Puncture Site Right radial ABG pH 7.41 ABG pCO2 at Pt Temp 33.7 L ABG pO2 at Pt Temp 68.6 L ABG HCO3 20.7 L ABG O2 Sat (Measured) 93.3 L ABG O2 Content 15.0 ABG Base Excess -2.9 L Elmer Test Positive VBG pH POC VBG pCO2 POC VBG pO2 VBG HCO3 VBG O2 Sat (Jodi) VBG Base Excess O2 Delivery Device No Result Required. Oxygen Flow Rate Yes Vent Mode No Result Required. Vent Rate No Result Required. Mechanical Rate No Result Required. Pressure Support Vent No Result Required. Sodium Potassium Chloride Carbon Dioxide Anion Gap BUN Creatinine Creat Clearance w eGFR POC Glucometer 160 Random Glucose Hemoglobin A1c % Lactic Acid 1.6 Calcium Phosphorus Magnesium Total Bilirubin AST ALT Alkaline Phosphatase Troponin I B-Natriuretic Peptide Total Protein Albumin Triglycerides Cholesterol Total LDL Cholesterol HDL Cholesterol TSH Urine Color Urine Appearance Urine pH Ur Specific [place] Urine Protein Urine Glucose (UA) Urine Ketones Urine Blood Urine Nitrite Urine Bilirubin Urine Urobilinogen Ur Leukocyte Esterase Urine WBC (Auto) Urine RBC (Auto) Urine Casts (Auto) U Epithel Cells (Auto) Urine Bacteria (Auto) Ur Random Sodium Ur Random Potassium Ur Random Chloride Influenza A (Rapid) Influenza B (Rapid) CXR results and imaging reviewed CT A/P results reviewed ASSESSMENT AND PLAN: 78 yom with PMhx of CAD, systolic CHF, PAT, CKD stage III (baseline cr around 2) , HTN admitted with sepsis secondary to UTI/right pyenonephritis -Sepsis due to compliacated UTI/Right pyelonephritis -lactic acidosis, likely from above -Elevated troponin, suspect Demand type NSTEMI from above rather than ACS -Systolic CHF -PAT -CAD -NIDDM -HTN Plan: ID input noted, CT A/P results reviewed. Ceftriaxone, follow up urine and blood cx. Bladder scan to assess for retention, discussed with RN. h/o systolic CHF, no clinical evidence of volume overload currently. IVF with close monitoring of volume status and hemodynamics. Tn flat, 2D echo results noted. Cardiology input appreciated. ASA/Metoprolol. ISS, diabetic diet. Hold oral hypoglycemics DVTPPX heparin Dispo pending clinical improvement. Pharmacy called, home meds reconciled. Plan discussed with patient and nursing, all questions answered.
[2018-08-01] MEDS ORDERED: DEXTROSE 5%-WATER 100 ML IVPB ONE (12:20)
--- NOTE | 2018-08-01 12:32 | ECHO ---
Name: WILLIE SAAVEDRA Exam:Adult Echocardiogram Study Date: 08/01/2018 09:21 AM Age: 78 yrs Reason For Study: R/O CHF Height: 63 in Weight: 221 lb BSA: 2.0 m2 MMode/2D Measurements & Calculations IVSd: 1.1 cm Ao root diam: 2.9 cm LVIDd: 4.8 cm LA dimension: 4.3 cm LVIDs: 3.4 cm LVPWd: 0.97 cm EDV(Teich): 105.6 ml LVOT diam: 2.0 cm ESV(Teich): 49.1 ml Doppler Measurements & Calculations MV E max mariano: 79.0 cm/sec Ao V2 max: 149.9 cm/sec MV A max mariano: 79.5 cm/sec Ao max P.0 mmHg MV E/A: 0.99 MV dec time: 0.17 sec ZACHARIAH(V,D): 1.6 cm2 LV V1 max P.1 mmHg Med Peak E' Mariano: 5.1 cm/sec LV V1 max: 73.0 cm/sec Med E/e': 15.6 Lat Peak E' Mariano: 9.8 cm/sec Lat E/e': 8.1 Procedure A complete two-dimensional transthoracic echocardiogram was performed (2D, M-mode, Doppler and color flow Doppler). The study was technically difficult with many images being suboptimal in quality. Left Ventricle The left ventricular size, thickness and function are normal. The left ventricular ejection fraction is normal. Ejection Fraction = 55-60%. No regional wall motion abnormalities noted. Right Ventricle The right ventricle is normal in size and function. Atria Normal left and right atrial size and function. Mitral Valve There is no mitral regurgitation noted. Tricuspid Valve There is trace tricuspid regurgitation. There was insufficient TR detected to calculate RV systolic p ressure. Aortic Valve No hemodynamically significant valvular aortic stenosis. No aortic regurgitation is present. Pulmonic Valve The pulmonic valve is not well visualized. Great Vessels The aortic root is normal size. Pericardium/Pleura There is no pericardial effusion. Interpretation Summary The study was technically difficult with many images being suboptimal in quality. The left ventricular size, thickness and function are normal The right ventricle is normal in size and function. There is trace tricuspid regurgitation. MD Jhonathan Kinsey 08/01/2018 12:31 PM
[2018-08-01] MEDS: CEFTRIAXONE 2 GM in DEXTROSE 5%-WATER 100 ML IVPB SCH (12:45)
--- NOTE | 2018-08-01 15:14 | EKG ---
Test Reason : Blood Pressure : / mmHG Vent. Rate : 159 BPM Atrial Rate : 098 BPM P-R Int : 000 ms QRS Dur : 086 ms QT Int : 304 ms P-R-T Axes : 000 -65 048 degrees QTc Int : 494 ms SINUS TACHYCARDIA with PVCs versus aberrant conduction. LEFT AXIS DEVIATION NONSPECIFIC ST ABNORMALITY ABNORMAL ECG Confirmed by DOREEN WILD, DARLYN ([id number]) on 08/01/2018 3:14:47 PM Referred By: Confirmed By:DARLYN LOGAN MD
[2018-08-01] MEDS ORDERED: VANCOMYCIN 1 GM in D5W (PRE-DOCKED) 1,000 MG/250 ML IVPB ONE (17:30)
[2018-08-02] MEDS ORDERED: metoPROLOL SUCCINATE 25 MG TAB.SR.24H (FP) PO ONE (00:54)
[2018-08-02] MEDS ORDERED: PIPERACILLIN/TAZOB 3.375 GM 3.375 GM in DEXTROSE 5%-WATER - 50 ML IVPB SCH (02:00)
[2018-08-02] MEDS: SODIUM CHLORIDE 1,000 ML IV SCH (03:00)
[2018-08-02] MEDS ORDERED: MELATONIN 1 MG TABLET PO SCH (03:25)
[2018-08-02] MEDS: MELATONIN 1 MG TABLET PO SCH ×2 (03:38→22:31)
[2018-08-02] MEDS: INSULIN SLIDING SCALE (NOVOLOG) 1 VIAL SQ SCH ×4 (06:16→22:02)
[2018-08-02] MEDS: HEPARIN NA (PORCINE) 5,000 UNITS/ML 1ML VIAL SQ SCH ×3 (06:16→22:30)
[2018-08-02] MEDS: LEVOTHYROXINE NA 75 MCG TABLET (FP) PO SCH (06:17)
[2018-08-02 07:05] LABS: BASO % 0.3 % (0-2.0); EOS % 1.3 % (0-4.5); HEMATOCRIT 39.9 % (35.4-49); HEMOGLOBIN 12.2 GM/dL (11.7-16.9); LYMPH % 8.7 % (8-40); MCH 21.4 pg (25.7-33.7); MCHC 30.4 g/dl (32.0-35.9); MEAN CELL VOLUME 70.4 fl (80-96); MEAN PLT VOLUME 8.5 fl (7.5-11.1); MONO % 11.9 % (3.8-10.2); NEUT % 77.8 % (42.8-82.8); PLATELET COUNT 193 K/MM3 (134-434); RBC 5.67 M/mm3 (4.00-5.60); RDW 19.4 % (11.9-15.9); WHITE BLOOD COUNT 8.9 K/mm3 (4.0-10.0)
[2018-08-02 07:30] LABS: ANION GAP 8 MMOL/L (8-16); BLOOD UREA NITROGEN 20 mg/dL (7-18); CALCIUM 7.8 mg/dL (8.5-10.1); CHLORIDE 109 mmol/L (98-107); CO2 22 mmol/L (21-32); CREATININE 1.2 mg/dL (0.55-1.3); GLUCOSE,RANDOM 158 mg/dL (74-106); MAGNESIUM 2.3 mg/dL (1.8-2.4); PHOSPHOROUS 2.4 mg/dL (2.5-4.9); POTASSIUM 3.9 mmol/L (3.5-5.1); SODIUM 139 mmol/L (136-145)
[2018-08-02] MEDS ORDERED: DEXTROSE 5%-WATER 100 ML IVPB ONE (09:09)
[2018-08-02] MEDS: ASPIRIN 81 MG CHEWABLE TABLETS PO SCH (09:25)
[2018-08-02] MEDS: PANTOPRAZOLE 20 MG TABLET (FP) PO SCH (09:25)
[2018-08-02] MEDS: CEFTRIAXONE 2 GM in DEXTROSE 5%-WATER 100 ML IVPB SCH (09:25)
[2018-08-02] MEDS: metoPROLOL SUCCINATE 25 MG TAB.SR.24H (FP) PO SCH (09:26)
--- NOTE | 2018-08-02 10:07 | PN ---
Progress Note, Physician History of Present Illness: AWAKE, ALERT IN BED NO C/O DYSURIA OR FLANK PAIN NO C/O FEVER/ CHILLS TEMPS DOWN AFEBRILE WBC IMPROVED - WNL AZOTEMIA IMPROVED CULTURES PENDING - Current Medication List Current Medications: Active Medications Acetaminophen (Tylenol -) 650 mg PO Q6H PRN PRN Reason: FEVER Last Admin: 08/01/18 22:06 Dose: 650 mg Aspirin (Asa -) 81 mg PO DAILY [facility] Last Admin: 08/02/18 09:25 Dose: 81 mg Heparin Sodium (Porcine) (Heparin -) 5,000 unit SQ TID [facility] Last Admin: 08/02/18 06:16 Dose: 5,000 unit Sodium Chloride (Normal Saline -) 1,000 mls @ 83 mls/hr IV ASDIR [facility] Last Admin: 08/02/18 03:00 Dose: 83 mls/hr Ceftriaxone Sodium 2 gm/ (Dextrose) 100 mls @ 200 mls/hr IVPB DAILY [facility]; Protocol Last Admin: 08/02/18 09:25 Dose: 200 mls/hr Insulin Aspart (Novolog Vial Sliding Scale -) 1 vial SQ ACHS [facility]; Protocol Last Admin: 08/02/18 06:16 Dose: 2 units Levothyroxine Sodium (Synthroid -) 75 mcg PO DAILY@0700 [facility] Last Admin: 08/02/18 06:17 Dose: 75 mcg Melatonin (Melatonin) 1 mg PO HS [facility] Last Admin: 08/02/18 03:38 Dose: 1 mg Metoprolol Succinate (Toprol Xl -) 25 mg PO DAILY [facility] Last Admin: 08/02/18 09:26 Dose: 25 mg Pantoprazole Sodium (Protonix -) 20 mg PO DAILY [facility] Last Admin: 08/02/18 09:25 Dose: 20 mg - Objective Vital Signs: Vital Signs Temperature 97.7 F 08/02/18 05:45 Pulse Rate 110 H 08/02/18 05:45 Respiratory Rate 20 08/02/18 05:45 Blood Pressure 148/85 08/02/18 05:45 O2 Sat by Pulse Oximetry (%) 98 08/01/18 21:00 Constitutional: Yes: No Distress, Obese Cardiovascular: Yes: Regular Rate and Rhythm, S1, S2 Respiratory: Yes: CTA Bilaterally Gastrointestinal: Yes: Normal Bowel Sounds, Soft. No: Tenderness Genitourinary: No: CVA Tenderness - Left, CVA Tenderness - Right Labs: CBC, BMP 08/02/18 06:00 08/02/18 06:00 INR, PTT INR 1.16 (0.83-1.09) H 07/31/18 17:29 Assessment/Plan R PYELONEPHRITIS R/O SEPSIS SECONDARY TO SOURCE FEVER/LEUKOCYTOSIS- IMPROVED AZOTEMIA- IMPROVED LACTIC ACIDOSIS RESOLVED AWAIT C/S CONTINUE CEFTRIAXONE
--- NOTE | 2018-08-02 10:36 | EKG ---
Test Reason : Blood Pressure : / mmHG Vent. Rate : 120 BPM Atrial Rate : 093 BPM P-R Int : 000 ms QRS Dur : 088 ms QT Int : 318 ms P-R-T Axes : 000 -48 054 degrees QTc Int : 449 ms POOR DATA QUALITY, INTERPRETATION MAY BE ADVERSELY AFFECTED Probably normal sinus rhythm with frequent APCS, some with aberrant conduction. LEFT ANTERIOR FASCICULAR BLOCK NONSPECIFIC ST ABNORMALITY ABNORMAL ECG Confirmed by SYLVIA HILARIO MD ([id number]) on 08/02/2018 10:35:47 AM Referred By: Confirmed By:SYLVIA HILARIO MD
--- NOTE | 2018-08-02 10:59 | PN ---
Progress Note (short form) - Note Progress Note: s: no cp sob palps dizzy o: Vital Signs Period Temp Pulse Resp BP Sys/Rivera Pulse Ox Last 24 Hr 97.7 F-98.5 F 90-125 20-22 107-148/64-92 98 nad no jvd rrr s1s2 no mrg cta bl nl eff aao3 no le e/c/c abd nt nd pos bs no jaundice diaphoresis Current Medications Generic Name Dose Route Start Last Admin Trade Name Freq PRN Reason Stop Dose Admin Acetaminophen 650 mg 08/01/18 02:16 08/01/18 22:06 Tylenol - PO 650 mg Q6H PRN Administration FEVER Aspirin 81 mg 08/02/18 10:00 08/02/18 09:25 Asa - PO 81 mg DAILY [facility]D Administration Heparin Sodium (Porcine) 5,000 unit 08/01/18 06:00 08/02/18 06:16 Heparin - SQ 5,000 unit TID [facility]D Administration Sodium Chloride 1,000 mls @ 83 mls/hr 08/01/18 02:30 08/02/18 03:00 Normal Saline - IV 83 mls/hr ASDIR [facility] Administration Ceftriaxone Sodium 2 gm/ 100 mls @ 200 mls/hr 08/01/18 12:30 08/02/18 09:25 Dextrose IVPB 200 mls/hr DAILY [facility] Administration Protocol Insulin Aspart 1 vial 08/01/18 07:00 08/02/18 06:16 Novolog Vial Sliding Scale - SQ 2 units ACHS [facility] Administration Protocol Levothyroxine Sodium 75 mcg 08/02/18 07:00 08/02/18 06:17 Synthroid - PO 75 mcg DAILY@0700 [facility] Administration Melatonin 1 mg 08/02/18 03:30 08/02/18 03:38 Melatonin PO 1 mg HS [facility] Administration Metoprolol Succinate 25 mg 08/02/18 10:00 08/02/18 09:26 Toprol Xl - PO 25 mg DAILY [facility] Administration Pantoprazole Sodium 20 mg 08/01/18 10:00 08/02/18 09:25 Protonix - PO 20 mg DAILY [facility] Administration CBC, BMP 08/02/18 06:00 08/02/18 06:00 cxr: no sig chf tele: sr, pvcs, pacs ecg: sr, pvcs, nl qtc, no ischemic changes echo 06/2015: mild-mod dec lvef, global hk, rv tds, lae, mild tr, rvsp 40-50 echo 07/2018: tds; nl lv/rv, no sig valve path a/p: 78 m hx cad, syst chf, htn, PAT, ckd here with fever, suprapubic pain. pyelonephritis: -abx per ID chronic syst chf: -stable vol status -repeat echo here showing nl lvef now -cont bb. not on constantine 2/2 ckd. -at home taking lasix 20 qd/40 qd alternating days-->holding for now due to sepsis. Monitor vol status. cad: -per pt he has no hx of mi or pci. He reports having cath 10+years ago and was told he didn't need stent. -stable, no signs acs, no anginal sxs -cont bb, asa positive trops: -borderline trop elevation with flat trend, similar to 2012 baseline values, not c/w acs htn: -cont bb pat: -in sr here, cont bb ckd: -cr near baseline dc tele
--- NOTE | 2018-08-02 11:32 | PN ---
Physical Exam: SUBJECTIVE: Patient seen and examined; no distress; denies flank pain, dysuira, chills , fever OBJECTIVE: Vital Signs Period Temp Pulse Resp BP Sys/Rivera Pulse Ox Last 24 Hr 97.7 F-98.5 F 90-125 20-22 107-148/64-92 98 GENERAL: The patient is awake, alert, and fully oriented, in no acute distress. LUNGS: Breath sounds equal, clear to auscultation bilaterally, no wheezes, no crackles, no accessory muscle use. HEART: Regular rate and rhythm, S1, S2 without murmur, rub or gallop. ABDOMEN: Soft, nontender,+distended, large exlap scar, normoactive bowel sounds , no guarding, no rebound, no hepatosplenomegaly, no masses. EXTREMITIES: 2+ pulses, warm, well-perfused, no edema. NEUROLOGICAL: Cranial nerves II through XII grossly intact. Normal speech, gait not observed. Laboratory Results - last 24 hr 08/01/18 08/01/18 08/01/18 11:20 11:35 16:33 WBC RBC Hgb Hct MCV MCH MCHC RDW Plt Count MPV Absolute Neuts (auto) Neutrophils % Lymphocytes % Monocytes % Eosinophils % Basophils % Nucleated RBC % Anticoagulation Therapy No Result Required. Puncture Site Right radial ABG pH 7.41 ABG pCO2 at Pt Temp 33.7 L ABG pO2 at Pt Temp 68.6 L ABG HCO3 20.7 L ABG O2 Sat (Measured) 93.3 L ABG O2 Content 15.0 ABG Base Excess -2.9 L Elmer Test Positive O2 Delivery Device No Result Required. Oxygen Flow Rate Yes Vent Mode No Result Required. Vent Rate No Result Required. Mechanical Rate No Result Required. Pressure Support Vent No Result Required. Sodium Potassium Chloride Carbon Dioxide Anion Gap BUN Creatinine Creat Clearance w eGFR POC Glucometer 153 Random Glucose Lactic Acid 1.6 Calcium Phosphorus Magnesium Troponin I Random Vancomycin 08/01/18 08/02/18 08/02/18 20:58 00:15 05:34 WBC RBC Hgb Hct MCV MCH MCHC RDW Plt Count MPV Absolute Neuts (auto) Neutrophils % Lymphocytes % Monocytes % Eosinophils % Basophils % Nucleated RBC % Anticoagulation Therapy Puncture Site ABG pH ABG pCO2 at Pt Temp ABG pO2 at Pt Temp ABG HCO3 ABG O2 Sat (Measured) ABG O2 Content ABG Base Excess Elmer Test O2 Delivery Device Oxygen Flow Rate Vent Mode Vent Rate Mechanical Rate Pressure Support Vent Sodium Potassium Chloride Carbon Dioxide Anion Gap BUN Creatinine Creat Clearance w eGFR POC Glucometer 188 151 Random Glucose Lactic Acid Calcium Phosphorus Magnesium Troponin I 0.13 H Random Vancomycin 08/02/18 08/02/18 08/02/18 06:00 06:00 06:00 WBC 8.9 RBC 5.67 H Hgb 12.2 Hct 39.9 MCV 70.4 L MCH 21.4 L MCHC 30.4 L RDW 19.4 H Plt Count 193 MPV 8.5 Absolute Neuts (auto) 7.0 Neutrophils % 77.8 Lymphocytes % 8.7 D Monocytes % 11.9 H D Eosinophils % 1.3 D Basophils % 0.3 Nucleated RBC % 0 Anticoagulation Therapy Puncture Site ABG pH ABG pCO2 at Pt Temp ABG pO2 at Pt Temp ABG HCO3 ABG O2 Sat (Measured) ABG O2 Content ABG Base Excess Elmer Test O2 Delivery Device Oxygen Flow Rate Vent Mode Vent Rate Mechanical Rate Pressure Support Vent Sodium 139 Potassium 3.9 Chloride 109 H Carbon Dioxide 22 Anion Gap 8 BUN 20 H Creatinine 1.2 Creat Clearance w eGFR 58.86 POC Glucometer Random Glucose 158 H Lactic Acid Calcium 7.8 L Phosphorus 2.4 L Magnesium 2.3 Troponin I Random Vancomycin 2.3 L Active Medications Generic Name Dose Route Start Last Admin Trade Name Freq PRN Reason Stop Dose Admin Acetaminophen 650 mg 08/01/18 02:16 08/01/18 22:06 Tylenol - PO 650 mg Q6H PRN Administration FEVER Aspirin 81 mg 08/02/18 10:00 08/02/18 09:25 Asa - PO 81 mg DAILY [facility]MOND Administration Heparin Sodium (Porcine) 5,000 unit 08/01/18 06:00 08/02/18 06:16 Heparin - SQ 5,000 unit TID [facility]MOND Administration Sodium Chloride 1,000 mls @ 83 mls/hr 08/01/18 02:30 08/02/18 03:00 Normal Saline - IV 83 mls/hr ASDIR [facility] Administration Ceftriaxone Sodium 2 gm/ 100 mls @ 200 mls/hr 08/01/18 12:30 08/02/18 09:25 Dextrose IVPB 200 mls/hr DAILY [facility] Administration Protocol Insulin Aspart 1 vial 08/01/18 07:00 08/02/18 06:16 Novolog Vial Sliding Scale - SQ 2 units ACHS [facility] Administration Protocol Levothyroxine Sodium 75 mcg 08/02/18 07:00 08/02/18 06:17 Synthroid - PO 75 mcg DAILY@0700 [facility] Administration Melatonin 1 mg 08/02/18 03:30 08/02/18 03:38 Melatonin PO 1 mg HS [facility] Administration Metoprolol Succinate 25 mg 08/02/18 10:00 08/02/18 09:26 Toprol Xl - PO 25 mg DAILY [facility] Administration Pantoprazole Sodium 20 mg 08/01/18 10:00 08/02/18 09:25 Protonix - PO 20 mg DAILY [facility]MON[facility] Administration ASSESSMENT/PLAN: This is a 78 year old male with a history of paroxysmal atrial tachycardia, CHF , HTN, hypothyroid, vertigo, who presents with fever, rigor, dysuria, found to be septic with urinary tract infection. #severe sepsis secondary to urinary tract infection: improved -blood culture, urine culutre, IV antibiotics ceftriaxone -CT abdomen /pelvis; negative for acute pathology #hx of paroxysmal atrial tachycardia: repeat ecg nsr -cont BB #MARY ML due to sepsis; improved -urine studies -I/O -f/u scan for any signs of obstruction #urinary retention after bladder scan with UTI; now resolved #elevated troponin in the setting of sepsis; ML demand ischemia; trending down -ASA; #hx of chronic on lasix at home -ECHO; 08/01 unremarkable; normal EF -hold diuretics due to sepsis -I/O, daily weights -monitor for overload -discuss with cardio plan for lasix #HTN: -cont BB #Hypothyroid: -cont levothyroxine #Vertigo: -meclizine #VTE: heparin sq #GI ppl; protonix Disposition: tele monitoring Visit type - Emergency Visit Emergency Visit: Yes ED Registration Date: 07/31/18 Care time: The patient presented to the Emergency Department on the above date and was hospitalized for further evaluation of their emergent condition. - New Patient This patient is new to me today: No - Critical Care Critical Care patient: No
--- NOTE | 2018-08-02 13:27 | PN ---
Teaching Attending Note Name of Resident: Valentina Garcia ATTENDING PHYSICIAN STATEMENT I saw and evaluated the patient. I reviewed the resident's note and discussed the case with the resident. I agree with the resident's findings and plan as documented with exceptions below. SUBJECTIVE: patient seen and examined. denies any pain or urinary symptoms currently. Feels better, no dyspnea, chest pain, palpitations. OBJECTIVE: Vital Signs Period Temp Pulse Resp BP Sys/Rivera Pulse Ox Last 24 Hr 97.7 F-98.5 F 88-125 20-22 107-148/64-92 98 Intake & Output 07/30/18 07/31/18 08/01/18 08/02/18 23:59 23:59 23:59 23:59 Intake Total 2545 581 Output Total 1700 650 Balance 845 -69 Weight 221 lb 233 lb 223 lb General: lying flat in bed in no acute distress Chest: Distant breath sounds but no rales or wheezing, positive air entry Abdomen:Soft, obese, no suprapubic or CVA tenderness, no voluntary or involuntary guarding or rigidity Extremities: no edema Home Medications Medication Instructions Recorded Dexlansoprazole [Dexilant] 30 mg PO DAILY 10/17/11 Levothyroxine [Synthroid] 75 mcg PO DAILY 02/06/12 Meclizine HCl [Antivert] 12.5 mg PO TID 02/06/12 Olmesartan Medoxomil [Benicar] 20 mg PO DAILY 04/09/12 Allopurinol 300 mg PO DAILY 08/01/18 Amlodipine Besylate 5 mg PO DAILY 08/01/18 Furosemide [Lasix] 20 mg PO ASDIR 08/01/18 Furosemide [Lasix] 40 mg PO ASDIR 08/01/18 Gabapentin 600 mg PO TID 08/01/18 Glimepiride 2 mg PO BID 08/01/18 Linaclotide [Linzess] 72 mcg PO DAILY 08/01/18 Metoprolol Succinate [Toprol Xl] 25 mg PO DAILY 08/01/18 Ranitidine [Zantac -] 150 mg PO BID 08/01/18 Active Medications Acetaminophen (Tylenol -) 650 mg PO Q6H PRN PRN Reason: FEVER Last Admin: 08/01/18 22:06 Dose: 650 mg Aspirin (Asa -) 81 mg PO DAILY [facility]MOND Last Admin: 08/02/18 09:25 Dose: 81 mg Heparin Sodium (Porcine) (Heparin -) 5,000 unit SQ TID [facility] Last Admin: 08/02/18 06:16 Dose: 5,000 unit Ceftriaxone Sodium 2 gm/ (Dextrose) 100 mls @ 200 mls/hr IVPB DAILY [facility]; Protocol Last Admin: 08/02/18 09:25 Dose: 200 mls/hr Insulin Aspart (Novolog Vial Sliding Scale -) 1 vial SQ ACHS [facility]; Protocol Last Admin: 08/02/18 11:26 Dose: 2 units Levothyroxine Sodium (Synthroid -) 75 mcg PO DAILY@0700 [facility] Last Admin: 08/02/18 06:17 Dose: 75 mcg Melatonin (Melatonin) 1 mg PO HS [facility] Last Admin: 08/02/18 03:38 Dose: 1 mg Metoprolol Succinate (Toprol Xl -) 25 mg PO DAILY [facility] Last Admin: 08/02/18 09:26 Dose: 25 mg Pantoprazole Sodium (Protonix -) 20 mg PO DAILY [facility] Last Admin: 08/02/18 09:25 Dose: 20 mg Laboratory Results - last 24 hr 08/01/18 08/01/18 08/02/18 16:33 20:58 00:15 WBC RBC Hgb Hct MCV MCH MCHC RDW Plt Count MPV Absolute Neuts (auto) Neutrophils % Lymphocytes % Monocytes % Eosinophils % Basophils % Nucleated RBC % Sodium Potassium Chloride Carbon Dioxide Anion Gap BUN Creatinine Creat Clearance w eGFR POC Glucometer 153 188 Random Glucose Calcium Phosphorus Magnesium Troponin I 0.13 H Random Vancomycin 08/02/18 08/02/18 08/02/18 05:34 06:00 06:00 WBC 8.9 RBC 5.67 H Hgb 12.2 Hct 39.9 MCV 70.4 L MCH 21.4 L MCHC 30.4 L RDW 19.4 H Plt Count 193 MPV 8.5 Absolute Neuts (auto) 7.0 Neutrophils % 77.8 Lymphocytes % 8.7 D Monocytes % 11.9 H D Eosinophils % 1.3 D Basophils % 0.3 Nucleated RBC % 0 Sodium Potassium Chloride Carbon Dioxide Anion Gap BUN Creatinine Creat Clearance w eGFR POC Glucometer 151 Random Glucose Calcium Phosphorus Magnesium Troponin I Random Vancomycin 2.3 L 08/02/18 08/02/18 06:00 11:23 WBC RBC Hgb Hct MCV MCH MCHC RDW Plt Count MPV Absolute Neuts (auto) Neutrophils % Lymphocytes % Monocytes % Eosinophils % Basophils % Nucleated RBC % Sodium 139 Potassium 3.9 Chloride 109 H Carbon Dioxide 22 Anion Gap 8 BUN 20 H Creatinine 1.2 Creat Clearance w eGFR 58.86 POC Glucometer 156 Random Glucose 158 H Calcium 7.8 L Phosphorus 2.4 L Magnesium 2.3 Troponin I Random Vancomycin Microbiology 07/31/18 18:45 Urine - Urine Clean Catch Urine Culture - Preliminary Lactose Fermenting Neg Bacilli 07/31/18 17:29 Blood - Peripheral Venous Blood Culture - Preliminary NO GROWTH OBTAINED AFTER 24 HOURS, INCUBATION TO CONTINUE FOR 4 DAYS. 07/31/18 17:29 Blood - Peripheral Venous Blood Culture - Preliminary NO GROWTH OBTAINED AFTER 24 HOURS, INCUBATION TO CONTINUE FOR 4 DAYS. ASSESSMENT AND PLAN: 78 yom with PMhx of CAD, systolic CHF, PAT, CKD stage III (baseline cr around 2) , HTN admitted with sepsis secondary to UTI/right pyenonephritis -Sepsis due to compliacated UTI/Bilateral pyelonephritis R>L -lactic acidosis, likely from above -Elevated troponin, suspect Demand type NSTEMI from above rather than ACS -Systolic CHF -PAT -CAD -NIDDM -HTN Plan: Clinically improved. WBC normalized. Fevers improved. ID input noted. Ceftriaxone day 2. Blood cx neg so far. Follow up urine cx. CT A/P noted, enlarged prostate. No evidence of retention inhouse. Outpatient urology follow up. D/c IVF. Resume lasix in 24 hours per volume status and hemodynamic status. Cardiology input noted. Tn flat. 2D echo results noted. ASA/metoprolol. Resume ARB as hemodynamics permit. ISS, diabetic diet. Hold oral hypoglycemics DVTPPX heparin Dispo pending clinical improvement. PT eval, Dispo planning likely home with services in 2-3 days pending urine cx and clinical improvement. Plan discussed with patient and nursing in detail, all questions answered.
[2018-08-02] MEDS ORDERED: PT OWN MED DRAWER 7, Y5N ONE (22:06)
[2018-08-03] MEDS: INSULIN SLIDING SCALE (NOVOLOG) 1 VIAL SQ SCH ×4 (06:44→21:44)
[2018-08-03] MEDS: LEVOTHYROXINE NA 75 MCG TABLET (FP) PO SCH (06:52)
[2018-08-03] MEDS: HEPARIN NA (PORCINE) 5,000 UNITS/ML 1ML VIAL SQ SCH ×3 (06:52→21:44)
[2018-08-03 08:28] LABS: ANION GAP 9 MMOL/L (8-16); BLOOD UREA NITROGEN 17 mg/dL (7-18); CALCIUM 8.3 mg/dL (8.5-10.1); CHLORIDE 107 mmol/L (98-107); CO2 21 mmol/L (21-32); CREATININE 1.2 mg/dL (0.55-1.3); GLUCOSE,RANDOM 130 mg/dL (74-106); MAGNESIUM 2.1 mg/dL (1.8-2.4); PHOSPHOROUS 2.8 mg/dL (2.5-4.9); POTASSIUM 4.1 mmol/L (3.5-5.1); SODIUM 138 mmol/L (136-145)
[2018-08-03 08:47] LABS: BASO % 0.5 % (0-2.0); EOS % 0.6 % (0-4.5); HEMATOCRIT 40.6 % (35.4-49); HEMOGLOBIN 12.6 GM/dL (11.7-16.9); LYMPH % 15.8 % (8-40); MCH 21.9 pg (25.7-33.7); MEAN CELL VOLUME 70.6 fl (80-96); MEAN PLT VOLUME 8.9 fl (7.5-11.1); MONO % 14.7 % (3.8-10.2); NEUT % 68.4 % (42.8-82.8); PLATELET COUNT 211 K/MM3 (134-434); RBC 5.76 M/mm3 (4.00-5.60); RDW 19.4 % (11.9-15.9); WHITE BLOOD COUNT 7.8 K/mm3 (4.0-10.0)
[2018-08-03] MEDS ORDERED: DEXTROSE 5%-WATER 100 ML IVPB ONE (09:02)
[2018-08-03] MEDS: FUROSEMIDE 20 MG TABLET (FP) PO SCH (09:12)
[2018-08-03] MEDS: metoPROLOL SUCCINATE 25 MG TAB.SR.24H (FP) PO SCH (09:12)
[2018-08-03] MEDS: PANTOPRAZOLE 20 MG TABLET (FP) PO SCH (09:12)
[2018-08-03] MEDS: ASPIRIN 81 MG CHEWABLE TABLETS PO SCH (09:12)
[2018-08-03] MEDS: CEFTRIAXONE 2 GM in DEXTROSE 5%-WATER 100 ML IVPB SCH (09:12)
[2018-08-03] MEDS ORDERED: FUROSEMIDE 40 MG/4 ML INJECTABLE VIAL IVPUSH ONE (10:45)
--- NOTE | 2018-08-03 10:45 | PN ---
Progress Note (short form) - Note Progress Note: doing well no complaints chart reviewed Vital Signs Period Temp Pulse Resp BP Sys/Rivera Pulse Ox Last 24 Hr 97.6 F-99.2 F 89-109 18-20 128-150/73-90 98 cor-rrr lungs clear abd soft,nt ext no edema no cvat CBC, BMP 08/03/18 06:00 08/03/18 06:00 Microbiology 07/31/18 18:45 Urine - Urine Clean Catch Urine Culture - Final Escherichia Coli 07/31/18 17:29 Blood - Peripheral Venous Blood Culture - Preliminary NO GROWTH OBTAINED AFTER 48 HOURS, INCUBATION TO CONTINUE FOR 3 DAYS. 07/31/18 17:29 Blood - Peripheral Venous Blood Culture - Preliminary NO GROWTH OBTAINED AFTER 48 HOURS, INCUBATION TO CONTINUE FOR 3 DAYS. a/p ecoli uti/pyelonephritis continue ceftriaxone day #3 doing well not bacteremic renal function has improved can switch in next 24-48 hours to po cefpodixime 200 bid, or cefdinar 300 bid to complete total 14 days d/w hospitalist please call back if needed
--- NOTE | 2018-08-03 10:52 | PN ---
Physical Exam: SUBJECTIVE: Patient seen and examined, denies any fevers, chills, abdominal or back pain or urinary symptoms. Denies any dyspnea or chest pain. OBJECTIVE: Vital Signs Period Temp Pulse Resp BP Sys/Rivera Pulse Ox Last 24 Hr 97.6 F-99.2 F 89-109 18-20 128-150/73-90 98 Intake & Output 07/31/18 08/01/18 08/02/18 08/03/18 23:59 23:59 23:59 23:59 Intake Total 2545 1172 10 Output Total 1700 1800 Balance 845 -628 10 Weight 221 lb 233 lb 223 lb GENERAL: The patient is awake, alert, and fully oriented, mild tachynea, able to speak in full sentences HEAD: Normal with no signs of trauma. EYES: PERRL, extraocular movements intact, sclera anicteric, conjunctiva clear. No ptosis. NECK: soft, supple, no JVD visualized, exam difficult given body habitus LUNGS: decreased breath sounds all over, no rales or wheezing appreciated HEART: Regular rate and rhythm, S1, S2 ABDOMEN: Soft, obese, nontender, nondistended, normoactive bowel sounds, no guarding, no rebound, no suprapubic or CVA tenderness EXTREMITIES: trace pedal edema PSYCH: Normal mood, normal affect. SKIN: Warm, dry, normal turgor, no rashes or lesions noted Laboratory Results - last 24 hr 08/02/18 08/02/18 08/02/18 11:23 17:16 20:52 WBC RBC Hgb Hct MCV MCH MCHC RDW Plt Count MPV Absolute Neuts (auto) Neutrophils % Lymphocytes % Monocytes % Eosinophils % Basophils % Nucleated RBC % Sodium Potassium Chloride Carbon Dioxide Anion Gap BUN Creatinine Creat Clearance w eGFR POC Glucometer 156 130 147 Random Glucose Calcium Phosphorus Magnesium 08/03/18 08/03/18 08/03/18 06:00 06:00 06:26 WBC 7.8 RBC 5.76 H Hgb 12.6 Hct 40.6 MCV 70.6 L MCH 21.9 L MCHC 31.0 L RDW 19.4 H Plt Count 211 MPV 8.9 Absolute Neuts (auto) 5.3 Neutrophils % 68.4 Lymphocytes % 15.8 D Monocytes % 14.7 H Eosinophils % 0.6 Basophils % 0.5 Nucleated RBC % 0 Sodium 138 Potassium 4.1 Chloride 107 Carbon Dioxide 21 Anion Gap 9 BUN 17 Creatinine 1.2 Creat Clearance w eGFR 58.86 POC Glucometer 150 Random Glucose 130 H Calcium 8.3 L Phosphorus 2.8 Magnesium 2.1 Active Medications Generic Name Dose Route Start Last Admin Trade Name Freq PRN Reason Stop Dose Admin Acetaminophen 650 mg 08/01/18 02:16 08/01/18 22:06 Tylenol - PO 650 mg Q6H PRN Administration FEVER Aspirin 81 mg 08/02/18 10:00 08/03/18 09:12 Asa - PO 81 mg DAILY [facility]MOND Administration Furosemide 20 mg 08/03/18 10:00 08/03/18 09:12 Lasix - PO 20 mg DAILY [facility] Administration Furosemide 20 mg 08/03/18 10:45 Lasix Injection - IVPUSH 08/03/18 10:46 ONCE ONE Heparin Sodium (Porcine) 5,000 unit 08/01/18 06:00 08/03/18 06:52 Heparin - SQ 5,000 unit TID [facility]MOND Administration Ceftriaxone Sodium 2 gm/ 100 mls @ 200 mls/hr 08/01/18 12:30 08/03/18 09:12 Dextrose IVPB 200 mls/hr DAILY [facility] Administration Protocol Insulin Aspart 1 vial 08/01/18 07:00 08/03/18 06:44 Novolog Vial Sliding Scale - SQ Not Given ACHS [facility] Protocol Levothyroxine Sodium 75 mcg 08/02/18 07:00 08/03/18 06:52 Synthroid - PO 75 mcg DAILY@0700 [facility] Administration Melatonin 1 mg 08/02/18 03:30 08/02/18 22:31 Melatonin PO 1 mg HS [facility] Administration Metoprolol Succinate 25 mg 08/02/18 10:00 08/03/18 09:12 Toprol Xl - PO 25 mg DAILY [facility] Administration Pantoprazole Sodium 20 mg 08/01/18 10:00 08/03/18 09:12 Protonix - PO 20 mg DAILY [facility]D Administration Home Medications Medication Instructions Recorded Dexlansoprazole [Dexilant] 30 mg PO DAILY 10/17/11 Levothyroxine [Synthroid] 75 mcg PO DAILY 02/06/12 Meclizine HCl [Antivert] 12.5 mg PO TID 02/06/12 Olmesartan Medoxomil [Benicar] 20 mg PO DAILY 04/09/12 Allopurinol 300 mg PO DAILY 08/01/18 Amlodipine Besylate 5 mg PO DAILY 08/01/18 Furosemide [Lasix] 20 mg PO ASDIR 08/01/18 Furosemide [Lasix] 40 mg PO ASDIR 08/01/18 Gabapentin 600 mg PO TID 08/01/18 Glimepiride 2 mg PO BID 08/01/18 Linaclotide [Linzess] 72 mcg PO DAILY 08/01/18 Metoprolol Succinate [Toprol Xl] 25 mg PO DAILY 08/01/18 Ranitidine [Zantac -] 150 mg PO BID 08/01/18 Microbiology 07/31/18 18:45 Urine - Urine Clean Catch Urine Culture - Final Escherichia Coli 07/31/18 17:29 Blood - Peripheral Venous Blood Culture - Preliminary NO GROWTH OBTAINED AFTER 48 HOURS, INCUBATION TO CONTINUE FOR 3 DAYS. 07/31/18 17:29 Blood - Peripheral Venous Blood Culture - Preliminary NO GROWTH OBTAINED AFTER 48 HOURS, INCUBATION TO CONTINUE FOR 3 DAYS. ASSESSMENT/PLAN: 78 yom with PMhx of CAD, systolic CHF, PAT, CKD stage III (baseline cr around 2) , HTN admitted with sepsis secondary to UTI/right pyenonephritis -Sepsis due to compliacated UTI/Bilateral pyelonephritis R>L -lactic acidosis, likely from above -Elevated troponin, suspect Demand type NSTEMI from above rather than ACS -acute on chronic Systolic CHF exacerbation, suspect from volume resuscitation for sepsis -PAT -CAD -NIDDM -HTN Plan: Clinically improved, afebrile, normal WBC. Blood cx neg. CT A/P noted, enlarged prostate. No evidence of urinary retention inhouse. Outpatient urology follow up. Ceftriaxone day 3. Discussed with ID, transition to PO abx in 24 hours if no concerns. Mild tachypnea, Lasix 20 mg IV x 1, resume home lasix 20 mg daily, strict I/os and daily weights. Cardiology input noted. Tn flat. 2D echo results reviewed. ASA/metoprolol. Resume Amlodipine. resume ARB over 24 hours as hemodynamics permit. ISS, diabetic diet. Hold oral hypoglycemics DVTPPX heparin PT eval noted Home oxygen needs assessment. Dispo plan for d/c home with services in 24 hours on PO abx if continues to improve. Plan discussed with patient and nursing in detail, all questions answered. Visit type - Emergency Visit Emergency Visit: Yes ED Registration Date: 07/31/18 Care time: The patient presented to the Emergency Department on the above date and was hospitalized for further evaluation of their emergent condition. - New Patient This patient is new to me today: No - Critical Care Critical Care patient: No - Discharge Referral Referred to [facility] No
--- NOTE | 2018-08-03 11:52 | PN ---
Progress Note (short form) - Note Progress Note: s: no cp sob palps dizzy o: Vital Signs Period Temp Pulse Resp BP Sys/Rivera Pulse Ox Last 24 Hr 97.6 F-99.2 F 89-109 18-20 128-150/73-90 98 nad no jvd rrr s1s2 no mrg cta bl nl eff aao3 no le e/c/c abd nt nd pos bs no jaundice diaphoresis Current Medications Generic Name Dose Route Start Last Admin Trade Name Freq PRN Reason Stop Dose Admin Acetaminophen 650 mg 08/01/18 02:16 08/01/18 22:06 Tylenol - PO 650 mg Q6H PRN Administration FEVER Amlodipine Besylate 5 mg 08/04/18 10:00 Norvasc - PO DAILY [facility]MOND Aspirin 81 mg 08/02/18 10:00 08/03/18 09:12 Asa - PO 81 mg DAILY [facility] Administration Furosemide 20 mg 08/03/18 10:00 08/03/18 09:12 Lasix - PO 20 mg DAILY [facility] Administration Heparin Sodium (Porcine) 5,000 unit 08/01/18 06:00 08/03/18 06:52 Heparin - SQ 5,000 unit TID [facility] Administration Ceftriaxone Sodium 2 gm/ 100 mls @ 200 mls/hr 08/01/18 12:30 08/03/18 09:12 Dextrose IVPB 200 mls/hr DAILY [facility] Administration Protocol Insulin Aspart 1 vial 08/01/18 07:00 08/03/18 06:44 Novolog Vial Sliding Scale - SQ Not Given ACHS [facility] Protocol Levothyroxine Sodium 75 mcg 08/02/18 07:00 08/03/18 06:52 Synthroid - PO 75 mcg DAILY@0700 [facility] Administration Melatonin 1 mg 08/02/18 03:30 08/02/18 22:31 Melatonin PO 1 mg HS [facility] Administration Metoprolol Succinate 25 mg 08/02/18 10:00 08/03/18 09:12 Toprol Xl - PO 25 mg DAILY [facility] Administration Pantoprazole Sodium 20 mg 08/01/18 10:00 08/03/18 09:12 Protonix - PO 20 mg DAILY [facility] Administration CBC, BMP 08/03/18 06:00 08/03/18 06:00 cxr: no sig chf ecg: sr, pvcs, nl qtc, no ischemic changes echo 06/2015: mild-mod dec lvef, global hk, rv tds, lae, mild tr, rvsp 40-50 echo 07/2018: tds; nl lv/rv, no sig valve path a/p: 78 m hx cad, syst chf, htn, PAT, ckd here with fever, suprapubic pain. pyelonephritis: -abx per ID chronic syst chf: -stable vol status -repeat echo here showing nl lvef now -cont bb. not on constantine 2/2 ckd. -resume po lasix for maintenance cad: -per pt he has no hx of mi or pci. He reports having cath 10+years ago and was told he didn't need stent. -stable, no signs acs, no anginal sxs -cont bb, asa positive trops: -borderline trop elevation with flat trend, similar to 2012 baseline values, not c/w acs htn: -cont bb pat: -in sr here, cont bb ckd: -cr near baseline
[2018-08-03 13:38] LABS: ANISOCYTOSIS 2+; MACROCYTOSIS 0; PLATELET ESTIMATE NORMAL
[2018-08-03] MEDS ORDERED: PT OWN MED DRAWER 7, Y5N ONE (21:17)
[2018-08-03] MEDS: MELATONIN 1 MG TABLET PO SCH (21:44)
[2018-08-04] MEDS: INSULIN SLIDING SCALE (NOVOLOG) 1 VIAL SQ SCH ×2 (06:14→11:49)
[2018-08-04] MEDS: HEPARIN NA (PORCINE) 5,000 UNITS/ML 1ML VIAL SQ SCH (06:14)
[2018-08-04] MEDS: LEVOTHYROXINE NA 75 MCG TABLET (FP) PO SCH (06:14)
[2018-08-04 08:14] LABS: BASO % 0.5 % (0-2.0); EOS % 3.1 % (0-4.5); HEMATOCRIT 42.2 % (35.4-49); HEMOGLOBIN 12.7 GM/dL (11.7-16.9); LYMPH % 18.2 % (8-40); MCH 21.1 pg (25.7-33.7); MCHC 30.1 g/dl (32.0-35.9); MEAN CELL VOLUME 70.2 fl (80-96); MEAN PLT VOLUME 8.4 fl (7.5-11.1); NEUT % 60.2 % (42.8-82.8); PLATELET COUNT 238 K/MM3 (134-434); RBC 6.02 M/mm3 (4.00-5.60); RDW 19.7 % (11.9-15.9); WHITE BLOOD COUNT 6.9 K/mm3 (4.0-10.0)
[2018-08-04 08:37] LABS: ANION GAP 9 MMOL/L (8-16); BLOOD UREA NITROGEN 22 mg/dL (7-18); CALCIUM 8.1 mg/dL (8.5-10.1); CHLORIDE 108 mmol/L (98-107); CO2 22 mmol/L (21-32); CREATININE 1.3 mg/dL (0.55-1.3); GLUCOSE,RANDOM 133 mg/dL (74-106); POTASSIUM 3.7 mmol/L (3.5-5.1); SODIUM 139 mmol/L (136-145)
--- NOTE | 2018-08-04 09:11 | DS ---
Physical Exam: SUBJECTIVE: Patient seen and examined, no abdominal or back pain, urinary symptoms, fevers, chills, or dyspnea. feels well. tolerating diet well. OBJECTIVE: Vital Signs Period Temp Pulse Resp BP Sys/Rivera Pulse Ox Last 24 Hr 97.8 F-98.4 F 56-114 18-20 128-156/58-99 95-98 PHYSICAL EXAM GENERAL: The patient is awake, alert, and fully oriented, in no acute distress, morbidly obese BMI 38.4. HEAD: Normal with no signs of trauma. EYES: PERRL, extraocular movements intact, sclera anicteric, conjunctiva clear. ENT: Ears normal, nares patent, oropharynx clear without exudates, moist mucous membranes. NECK: Trachea midline, full range of motion, supple. LUNGS: Breath sounds equal, clear to auscultation bilaterally, no wheezes, no crackles, no accessory muscle use. HEART: Regular rate and rhythm, S1, S2 ABDOMEN: Soft, nontender, nondistended, normoactive bowel sounds, no guarding, no rebound, no CVA or suprapubic tenderness EXTREMITIES: 2+ pulses, warm, well-perfused, no edema. NEUROLOGICAL: Cranial nerves II through XII grossly intact. Normal speech, gait not observed. PSYCH: Normal mood, normal affect. SKIN: Warm, dry, normal turgor, no rashes or lesions noted. LABS Laboratory Results - last 24 hr 08/03/18 08/03/18 08/03/18 06:00 11:56 17:00 WBC RBC Hgb Hct MCV MCH MCHC RDW Plt Count MPV Absolute Neuts (auto) Neutrophils % Neutrophils % (Manual) 60.0 Band Neutrophils % 6.7 Lymphocytes % Lymphocytes % (Manual) 16.6 D Monocytes % Monocytes % (Manual) 9 D Eosinophils % Eosinophils % (Manual) 0.0 D Basophils % Basophils % (Manual) 0.0 Myelocytes % (Man) 0 Promyelocytes % (Man) 0 Blast Cells % (Manual) 0 Nucleated RBC % Metamyelocytes 0 Hypochromia 0 Platelet Estimate Normal Polychromasia 0 Poikilocytosis 1+ Anisocytosis 2+ Microcytosis 1+ Macrocytosis 0 Sodium Potassium Chloride Carbon Dioxide Anion Gap BUN Creatinine Creat Clearance w eGFR POC Glucometer 182 131 Random Glucose Calcium 08/03/18 08/04/18 08/04/18 21:42 06:14 07:00 WBC 6.9 RBC 6.02 H Hgb 12.7 Hct 42.2 MCV 70.2 L MCH 21.1 L MCHC 30.1 L RDW 19.7 H Plt Count 238 MPV 8.4 Absolute Neuts (auto) 4.1 Neutrophils % 60.2 Neutrophils % (Manual) Band Neutrophils % Lymphocytes % 18.2 Lymphocytes % (Manual) Monocytes % 18.0 H Monocytes % (Manual) Eosinophils % 3.1 D Eosinophils % (Manual) Basophils % 0.5 Basophils % (Manual) Myelocytes % (Man) Promyelocytes % (Man) Blast Cells % (Manual) Nucleated RBC % 0 Metamyelocytes Hypochromia Platelet Estimate Polychromasia Poikilocytosis Anisocytosis Microcytosis Macrocytosis Sodium Potassium Chloride Carbon Dioxide Anion Gap BUN Creatinine Creat Clearance w eGFR POC Glucometer 152 134 Random Glucose Calcium 08/04/18 07:00 WBC RBC Hgb Hct MCV MCH MCHC RDW Plt Count MPV Absolute Neuts (auto) Neutrophils % Neutrophils % (Manual) Band Neutrophils % Lymphocytes % Lymphocytes % (Manual) Monocytes % Monocytes % (Manual) Eosinophils % Eosinophils % (Manual) Basophils % Basophils % (Manual) Myelocytes % (Man) Promyelocytes % (Man) Blast Cells % (Manual) Nucleated RBC % Metamyelocytes Hypochromia Platelet Estimate Polychromasia Poikilocytosis Anisocytosis Microcytosis Macrocytosis Sodium 139 Potassium 3.7 Chloride 108 H Carbon Dioxide 22 Anion Gap 9 BUN 22 H Creatinine 1.3 Creat Clearance w eGFR 53.67 POC Glucometer Random Glucose 133 H Calcium 8.1 L Microbiology 07/31/18 17:29 Blood - Peripheral Venous Blood Culture - Preliminary NO GROWTH OBTAINED AFTER 72 HOURS, INCUBATION TO CONTINUE FOR 2 DAYS. 07/31/18 17:29 Blood - Peripheral Venous Blood Culture - Preliminary NO GROWTH OBTAINED AFTER 72 HOURS, INCUBATION TO CONTINUE FOR 2 DAYS. 07/31/18 18:45 Urine - Urine Clean Catch Urine Culture - Final Escherichia Coli CT A/P CT scan of the abdomen pelvis without oral and intravenous contrast Coronal and sagittal reformatted images were obtained Compared to prior CT scan of the chest, abdomen pelvis dated 07/07/2011 Included lower lung appears unremarkable. The heart is within normal limits in size. Calcification of the coronary arteries are present. Status post cholecystectomy. The liver is slightly enlarged measuring 18.5 cm in craniocaudal length with homogeneous. The spleen, pancreas and both adrenal glands appear unremarkable. Both kidneys are within normal limits in size with stranding of the perinephric fat, right more than left. There is also mild haziness around the proximal and mid right ureter that appears to be slightly dilated without gross evidence of an obstructing stone. Partially distended urinary bladder without wall thickening or gross intraluminal stones. There is no evidence of small bowel obstruction. Normal stool burden the colon with multiple diverticula and without evidence of acute diverticulitis. Enlarged prostate gland with tiny benign-appearing calcific densities. Perirectal and pericecal fat are clear. Nonvisualization of the appendix. No free air, free fluid or gross enlarged lymph nodes are identified. Normal size abdominal aorta down through its bifurcation. Visualized osseous structures appear intact with moderate to marked degenerative disc disease at L2 -L3 level and minimal anterolisthesis of L5 over S1. IMPRESSION: Status post cholecystectomy. Mild hepatomegaly. Stranding of the perinephric fat, bilaterally, right more than left as well as mild stranding surrounding the proximal and mid right ureter that is slightly dilated. Cannot rule out an inflammatory process. Correlate clinically. No obstructing renal or ureteral stone is identified, bilaterally Enlarged prostate gland. Degenerative changes in the lumbar spine and minimal anterolisthesis of L5 over S1, grade 1 Reported By: Chang Medina MD 08/01/18 1544 HOSPITAL COURSE: Date of Admission:07/31/18 Date of Discharge: 08/04/18 Minutes to complete discharge: 40 Discharge Summary Reason For Visit: SEPSIS Current Active Problems Sepsis (Acute) Hospital Course: 78 yom with PMhx of CAD, systolic CHF, PAT, CKD stage III (baseline cr around 2) , HTN admitted with fevers, chills, suprapubic and back pain and found with sepsis secondary to bilateral pyelonephritis (R>L). He was placed on ceftriaxone and short duration of IV hydration. His fevers and symptoms rapidly resolved. His blood cultures were negative and urine cultures showed E. coli as above. Infectious disease was consulted and he has finished 4 days of ceftriaxone and will be transitioned to 10 days of cefpodoxime per their recommendations. He was also noted with enlarged prostate on CT Abdomen/pelvis but no evidence of urinary retention. He is advised outpatient urology follow up. He had mild troponin elevation that was overall unchanged. His telemetry was uneventful. cardiology was consulted and was not felt to have ACS. He had 2D echo which was limited study but showed normal LV and RV size and function. He was resumed on diuresis, received prn IV doses and was oxygenating well prior to discharge with no concerns of dyspnea. He was evaluated by physical therapy and recommended home PT He will be dischaged in stable condition. Condition: Stable - Instructions Diet, Activity, Other Instructions: You were admitted with urinary tract and kidney infection. you were placed on antibiotics and improved. You were also seen by governor assembler and not felt to have a heart attack. MEDICATIONS: Start new antibiotic as follows: Cefpodoxime 200 mg twice daily for 10 days starting tomorrow 08/05/2018 resume all your home medications as before. INSTRUCTIONS: Advise to weigh yourself daily and notify doctor if weight gain > 3lbs in 2 days. In that case, your lasix dose may need to be adjustsed. FOLLOW UP: With primary care physician in 1 week With urologist in 2-3 weeks (you were found with enlarged prostate and are advised to discuss with your doctor about outpatient urology follow up) If you notice any new fevers, chills, back or belly pain, urinary symptoms, trouble breathing, chest pain, inability to urinate or any new concerns, please call 911 or come to the ED. Referrals: Jhonathan Kinsey MD [Staff Physician] - Eliza Boone MD [Primary Care Provider] - Disposition: VNS/HOME HEALTH CARE - Home Medications Comprehensive Discharge Medication List: Ambulatory Orders Dexlansoprazole [Dexilant] 30 mg PO DAILY 10/17/11 Levothyroxine [Synthroid -] 75 mcg PO DAILY 02/06/12 Meclizine HCl [Antivert -] 12.5 mg PO TID 02/06/12 Olmesartan Medoxomil [Benicar -] 20 mg PO DAILY 04/09/12 Allopurinol 300 mg PO DAILY 08/01/18 Amlodipine Besylate 5 mg PO DAILY 08/01/18 Furosemide [Lasix] 20 mg PO ASDIR 08/01/18 Furosemide [Lasix] 40 mg PO ASDIR 08/01/18 Gabapentin 600 mg PO TID 08/01/18 Glimepiride 2 mg PO BID 08/01/18 Linaclotide [Linzess] 72 mcg PO DAILY 08/01/18 Metoprolol Succinate [Toprol Xl] 25 mg PO DAILY 08/01/18 Ranitidine [Zantac -] 150 mg PO BID 08/01/18 Aspirin [ASA -] 81 mg PO DAILY #30 tab.chew 08/04/18 Cefpodoxime Proxetil [Vantin -] 200 mg PO Q12H 10 Days #20 tablet 08/04/18 This patient is new to me today: No Emergency Visit: Yes ED Registration Date: 07/31/18 Care time: The patient presented to the Emergency Department on the above date and was hospitalized for further evaluation of their emergent condition. Critical Care patient: No - Discharge Referral Referred to [facility] No
[2018-08-04] MEDS ORDERED: FUROSEMIDE 40 MG/4 ML INJECTABLE VIAL IVPUSH ONE (09:15)
[2018-08-04] MEDS ORDERED: DEXTROSE 5%-WATER 100 ML IVPB ONE (09:32)
[2018-08-04] MEDS ORDERED: amLODIPine BESYLATE 5 MG TABLET (FP) PO SCH (10:00)
[2018-08-04] MEDS: CEFTRIAXONE 2 GM in DEXTROSE 5%-WATER 100 ML IVPB SCH (10:07)
[2018-08-04] MEDS: metoPROLOL SUCCINATE 25 MG TAB.SR.24H (FP) PO SCH (10:08)
[2018-08-04] MEDS: ASPIRIN 81 MG CHEWABLE TABLETS PO SCH (10:08)
[2018-08-04] MEDS: PANTOPRAZOLE 20 MG TABLET (FP) PO SCH (10:08)
[2018-08-04] MEDS: FUROSEMIDE 20 MG TABLET (FP) PO SCH (10:09)
[2018-08-04 11:39] VITALS: BP 139/76; PULSE 76; TEMP 97.8
[2018-08-04 13:58] LABS: ANISOCYTOSIS 2+; MACROCYTOSIS 1+; OVALOCYTE 1+; PLATELET ESTIMATE NORMAL; TARGET CELLS 1+; TEAR DROP CELLS 1+
== END 2018-08-04 13:41 | disposition home health service (06) | DRG 871 ==
LOC: JER 16:27 → JERBED 18:32 → J4S 08-01 05:15
PROVIDERS: ADMIT Internal Medicine; ATTEND Hospitalist
DX: A41.9 Sepsis, unspecified organism (principal); I50.23 Acute on chronic systolic (congestive) heart failure; N12 Tubulo-interstitial nephritis, not specified as acute or chronic; N39.0 Urinary tract infection, site not specified; N17.9 Acute kidney failure, unspecified; E87.2 Acidosis; I13.0 Hypertensive heart and chronic kidney disease with heart failure and stage 1 through stage 4 chronic kidney disease, or unspecified chronic kidney disease; I24.8 Other forms of acute ischemic heart disease; R65.20 Severe sepsis without septic shock; E11.22 Type 2 diabetes mellitus with diabetic chronic kidney disease; N18.3 Chronic kidney disease, stage 3 (moderate); B96.29 Other Escherichia coli [E. coli] as the cause of diseases classified elsewhere; E88.09 Other disorders of plasma-protein metabolism, not elsewhere classified; E66.01 Morbid (severe) obesity due to excess calories; Z68.38 Body mass index [BMI] 38.0-38.9, adult; I25.10 Atherosclerotic heart disease of native coronary artery without angina pectoris; E03.9 Hypothyroidism, unspecified; N62 Hypertrophy of breast; I45.81 Long QT syndrome; R42 Dizziness and giddiness; Z79.84 Long term (current) use of oral hypoglycemic drugs
CPT/HCPCS: 36415; 36600; 71045-TC-FY; 74176-TC; 80048; 80053; 80061; 81003; 82436; 82465; 82803; 82962; 83036; 83605; 83721; 83735; 83880; 84100; 84133; 84300; 84443; 84484; 85025; 85610; 85730; 87040; 87086; 87186; 87804; 93005; 93010; 93306-TC; 94761; 97116-GP; 97161-GP; 99283-25; G0480; J0131; J1644; J7030

== ENCOUNTER 2018-09-19 07:35 | Inpatient (IN) | payer MEDICARE, OTHER ==
[2018-09-19] MEDS ORDERED: ACETAMINOPHEN 325 MG TABLET (FP) PO ONE (08:57)
--- NOTE | 2018-09-19 08:58 | PDOC ---
History of Present Illness - General Chief Complaint: Weakness Stated Complaint: WEAKNESS,DIZZINESS Time Seen by Provider: 09/19/18 07:45 History Source: Patient Exam Limitations: No Limitations - History of Present Illness Initial Comments: 09/19/18 09:02 78 yo male pmh vertigo, CAD, systolic CHF, PAT, CKD stage III (baseline cr around 2), and HTN with recent admission for pyelo presents to the ED for 1 day of fevers and dizziness. Of note pt had outpt cystoscopy 09/18 without anesthesia complications and reported normal cystoscopy. Denies CP, SOB, abdominal pain, N/V, changes in bowel or bladder habits. Pt did not take his home medications (BP, meclizine) this am. Past History - Past Medical History Allergies/Adverse Reactions: Allergies Allergy/AdvReac Type Severity Reaction Status Date / Time No Known Allergies Allergy Verified 10/29/14 10:56 Home Medications: Ambulatory Orders Dexlansoprazole [Dexilant] 60 mg PO DAILY 10/17/11 Levothyroxine [Synthroid -] 75 mcg PO DAILY 02/06/12 Meclizine HCl [Antivert -] 12.5 mg PO TID 02/06/12 Olmesartan Medoxomil [Benicar -] 20 mg PO DAILY 04/09/12 Allopurinol 300 mg PO DAILY 08/01/18 Amlodipine Besylate 5 mg PO DAILY 08/01/18 Furosemide [Lasix] 20 mg PO ASDIR 08/01/18 Furosemide [Lasix] 40 mg PO ASDIR 08/01/18 Gabapentin 600 mg PO TID 08/01/18 Glimepiride 2 mg PO BID 08/01/18 Linaclotide [Linzess] 72 mcg PO DAILY 08/01/18 Metoprolol Succinate [Toprol Xl] 25 mg PO DAILY 08/01/18 Ranitidine [Zantac -] 150 mg PO BID 08/01/18 Aspirin [ASA -] 81 mg PO DAILY #30 tab.chew 08/04/18 Anemia: No Asthma: No Cancer: No Cardiac Disorders: Yes (CAD, paroxysmal atach) CVA: No COPD: No CHF: Yes Dementia: No Diabetes: Yes GI Disorders: Yes (polyps -stomach, GI bleed) Disorders: No HTN: Yes Hypercholesterolemia: Yes Liver Disease: No Seizures: No Thyroid Disease: Yes (HYPO.) - Surgical History Abdominal Surgery: Yes (HERNIA REPAIR, PEG TUBE.) Appendectomy: No Cardiac Surgery: No Cholecystectomy: No Lung Surgery: No Neurologic Surgery: No Orthopedic Surgery: No - Family Disease History Family Disease History: Diabetes: Sister - Suicide/Smoking/Psychosocial Hx Smoking Status: No Smoking History: Former smoker Have you smoked in the past 12 months: No Number of Cigarettes Smoked Daily: 0 If you are a former smoker, when did you quit?: 15 years ago Information on smoking cessation initiated: No Hx Alcohol Use: Yes Drug/Substance Use Hx: No Substance Use Type: None Hx Substance Use Treatment: No Review of Systems - Review of Systems Constitutional: Yes: Fever *Physical Exam - Vital Signs Last Vital Signs Temp Pulse Resp BP Pulse Ox 100.2 F H 117 H 17 96/51 L 94 L 09/19/18 07:51 09/19/18 07:51 09/19/18 07:51 09/19/18 07:51 09/19/18 07:51 ED Treatment Course - LABORATORY CBC & Chemistry Diagram: 09/19/18 09:20 09/19/18 08:56 Medical Decision Making - Medical Decision Making 09/19/18 14:[address] Kathleen, accepted for admission *DC/Admit/Observation/Transfer Diagnosis at time of Disposition: UTI (urinary tract infection), Sepsis - Discharge Dispostion Condition at time of disposition: Stable Decision to Admit order: Yes - Referrals Referrals: Eliza Boone MD [Primary Care Provider] - - Patient Instructions - Post Discharge Activity
[2018-09-19] MEDS ORDERED: ACETAMINOPHEN 325 MG TABLET (FP) ONE (09:31)
[2018-09-19] MEDS ORDERED: SODIUM CHLORIDE 500 ML IV STA ×2 (09:38→14:24)
--- NOTE | 2018-09-19 09:39 | PDOC ---
Documentation entered by Clemente Sauceda SCRIBE, acting as scribe for Jerman Montanez MD. Jerman Montanez MD: This documentation has been prepared by the Komal hernandez Nirvannie, SCRIBE, under my direction and personally reviewed by me in its entirety. I confirm that the documentation accurately reflects all work, treatment, procedures, and medical decision making performed by me. Attending Attestation - Resident Resident Name: Issac Durant - ED Attending Attestation I have performed the following: I have examined & evaluated the patient, The case was reviewed & discussed with the resident, I agree w/resident's findings & plan, Exceptions are as noted - HPI HPI: 09/19/18 09:30 The patient is a 78 year old male, with a significant past medical history of CAD, CHF, HTN, paroxysmal afib, who presents to the emergency department with fever, chills, lightheadedness. Patient endorses having an outpatient cystoscopy yesterday with Dr. Parr. He denies any recent nausea, vomit, diarrhea or constipation. He denies any recent chest pain or shortness of breath. He denies any recent dysuria, frequency, urgency or hematuria. Allergies: NKDA Primary Care Physician: Dr. Boone Urologist: Dr. Parr - Physicial Exam PE: 09/19/18 09:30 GENERAL: Awake, alert, and fully oriented, in no acute distress. HEAD: No signs of trauma EYES: PERRLA, EOMI, sclera anicteric, conjunctiva clear ENT: Auricles normal inspection, hearing grossly normal, nares patent, oropharynx clear without exudates. Moist mucosa NECK: Nontender, no stepoffs, Normal ROM, supple, no lymphadenopathy, JVD, or masses LUNGS: Breath sounds equal, clear to auscultation bilaterally. No wheezes, and no crackles HEART: Regular rate and rhythm, normal S1 and S2, no murmurs, rubs or gallops ABDOMEN: Soft, nontender, normoactive bowel sounds. No guarding, no rebound. No masses EXTREMITIES: Normal range of motion, no edema. No clubbing or cyanosis. No cords, erythema, or tenderness NEUROLOGICAL: Cranial nerves II through XII intact. 5/5 strength and sensation in all extremities, Normal speech, normal gait, normal cerebellar function SKIN: Warm, Dry, normal turgor, no rashes or lesions noted. - Critical Care Time Total Critical Care Time: 60 Critical Care Statement: The care of this patient involved high complexity decision making to prevent further life threatening deterioration of the patient 's condition and/or to evaluate & treat vital organ system(s) failure or risk of failure. - Medical Decision Making 09/19/18 09:36 78 M with fever, chills, lightheadedness. Febrile in ED, hypotensive, tachycardic. Will perform full sepsis evaluation. Source unclear at this time. Suspect urinary. - labs, cultures - CXR, UA - IVF, tylenol, abx
[2018-09-19 09:41] LABS: BASO % 0.1 % (0-2.0); EOS % 0.9 % (0-4.5); HEMATOCRIT 38.7 % (35.4-49); HEMOGLOBIN 11.6 GM/dL (11.7-16.9); LYMPH % 1.3 % (8-40); MEAN CELL VOLUME 73.5 fl (80-96); MEAN PLT VOLUME 7.2 fl (7.5-11.1); MONO % 3.9 % (3.8-10.2); NEUT % 93.8 % (42.8-82.8); PLATELET COUNT 378 K/MM3 (134-434); RBC 5.27 M/mm3 (4.00-5.60); RDW 21.8 % (11.9-15.9); WHITE BLOOD COUNT 13.6 K/mm3 (4.0-10.0)
[2018-09-19 09:44] LABS: VENOUS PC02 39.7 mmHg (41-51); VENOUS PH 7.36 (7.31-7.41); VENOUS PO2 27.5 mmHg (30-40)
[2018-09-19 10:10] LABS: INR 1.1 (0.83-1.09)
[2018-09-19 10:15] LABS: ALBUMIN 3.2 g/dl (3.4-5.0); ALK PHOS 103 U/L (45-117); ANION GAP 9 MMOL/L (8-16); BILIRUBIN,TOTAL 0.4 mg/dL (0.2-1); BLOOD UREA NITROGEN 28 mg/dL (7-18); CALCIUM 8.6 mg/dL (8.5-10.1); CHLORIDE 110 mmol/L (98-107); CO2 22 mmol/L (21-32); CREATININE 1.7 mg/dL (0.55-1.3); GLUCOSE,RANDOM 126 mg/dL (74-106); POTASSIUM 4.7 mmol/L (3.5-5.1); SGOT/AST 31 U/L (15-37); SGPT/ALT 28 U/L (13-61); SODIUM 140 mmol/L (136-145); TOT PROT 7.2 g/dl (6.4-8.2)
--- NOTE | 2018-09-19 10:21 | PDOC ---
History of Present Illness - General Chief Complaint: Weakness Stated Complaint: WEAKNESS,DIZZINESS Time Seen by Provider: 09/19/18 07:45 History Source: Patient Exam Limitations: No Limitations Past History - Past Medical History Allergies/Adverse Reactions: Allergies Allergy/AdvReac Type Severity Reaction Status Date / Time No Known Allergies Allergy Verified 10/29/14 10:56 Home Medications: Ambulatory Orders Dexlansoprazole [Dexilant] 30 mg PO DAILY 10/17/11 Levothyroxine [Synthroid -] 75 mcg PO DAILY 02/06/12 Meclizine HCl [Antivert -] 12.5 mg PO TID 02/06/12 Olmesartan Medoxomil [Benicar -] 20 mg PO DAILY 04/09/12 Allopurinol 300 mg PO DAILY 08/01/18 Amlodipine Besylate 5 mg PO DAILY 08/01/18 Furosemide [Lasix] 20 mg PO ASDIR 08/01/18 Furosemide [Lasix] 40 mg PO ASDIR 08/01/18 Gabapentin 600 mg PO TID 08/01/18 Glimepiride 2 mg PO BID 08/01/18 Linaclotide [Linzess] 72 mcg PO DAILY 08/01/18 Metoprolol Succinate [Toprol Xl] 25 mg PO DAILY 08/01/18 Ranitidine [Zantac -] 150 mg PO BID 08/01/18 Aspirin [ASA -] 81 mg PO DAILY #30 tab.chew 08/04/18 Cefpodoxime Proxetil [Vantin -] 200 mg PO Q12H 10 Days #20 tablet 08/04/18 Anemia: No Asthma: No Cancer: No Cardiac Disorders: Yes (CAD, paroxysmal atach) CVA: No COPD: No CHF: Yes Dementia: No Diabetes: Yes GI Disorders: Yes (polyps -stomach, GI bleed) Disorders: No HTN: Yes Hypercholesterolemia: Yes Liver Disease: No Seizures: No Thyroid Disease: Yes (HYPO.) - Surgical History Abdominal Surgery: Yes (HERNIA REPAIR, PEG TUBE.) Appendectomy: No Cardiac Surgery: No Cholecystectomy: No Lung Surgery: No Neurologic Surgery: No Orthopedic Surgery: No - Family Disease History Family Disease History: Diabetes: Sister - Suicide/Smoking/Psychosocial Hx Smoking Status: No Smoking History: Former smoker Have you smoked in the past 12 months: No Number of Cigarettes Smoked Daily: 0 If you are a former smoker, when did you quit?: 15 years ago Information on smoking cessation initiated: No Hx Alcohol Use: Yes Drug/Substance Use Hx: No Substance Use Type: None Hx Substance Use Treatment: No *Physical Exam - Vital Signs Last Vital Signs Temp Pulse Resp BP Pulse Ox 100.2 F H 117 H 17 96/51 L 94 L 09/19/18 07:51 09/19/18 07:51 09/19/18 07:51 09/19/18 07:51 09/19/18 07:51 *DC/Admit/Observation/Transfer - Referrals Referrals: Eliza Boone MD [Primary Care Provider] - - Patient Instructions - Post Discharge Activity
[2018-09-19] MEDS ORDERED: CEFTRIAXONE 1 GM in DEXTROSE 5%-WATER - 100 ML IVPB ONE (13:51)
[2018-09-19 13:59] LABS: EPI CELLS 3.1 /HPF (0-5/HPF); URINE APPEARANCE TURBID; URINE BILIRUBIN NEGATIVE (NEGATIVE); URINE CASTS 18 /lpf (0-8); URINE COLOR DK YELLOW; URINE GLUCOSE (UA) NEGATIVE (NEGATIVE); URINE KETONE TRACE (NEGATIVE); URINE LEUK ESTERASE 2+ (NEGATIVE); URINE NITRITE NEGATIVE (NEGATIVE); URINE PROTEIN 1+ (NEGATIVE); URINE WBC 10 /hpf (0-5)
[2018-09-19 14:11] LABS: ANISOCYTOSIS 1+; MACROCYTOSIS 0; OVALOCYTE 1+; PLATELET ESTIMATE NORMAL
[2018-09-19] MEDS ORDERED: ACETAMINOPHEN 1000 MG/100 ML VIAL (NON FORMULARY) IVPB ONE (14:26)
[2018-09-19] MEDS ORDERED: CEFTRIAXONE 1 GM/50 ML BAG ONE (14:28)
[2018-09-19] MEDS ORDERED: ACETAMINOPHEN INJECTION 100 ML IVPB ONE (14:28)
[2018-09-19 14:31] LABS: URINE RBC 41.2 /hpf (0-4)
--- NOTE | 2018-09-19 16:02 | EKG ---
Test Reason : Blood Pressure : / mmHG Vent. Rate : 116 BPM Atrial Rate : 116 BPM P-R Int : 176 ms QRS Dur : 088 ms QT Int : 322 ms P-R-T Axes : 097 -52 026 degrees QTc Int : 447 ms SINUS TACHYCARDIA WITH FREQUENT PREMATURE VENTRICULAR COMPLEXES LEFT AXIS DEVIATION PULMONARY DISEASE PATTERN SEPTAL INFARCT , AGE UNDETERMINED ABNORMAL ECG WHEN COMPARED WITH ECG OF 02-AUG-2018 00:44, PREVIOUS ECG HAS UNDETERMINED RHYTHM, NEEDS REVIEW SEPTAL INFARCT IS NOW PRESENT Confirmed by DARLYN LOGAN MD ([id number]) on 09/19/2018 4:01:59 PM Referred By: Confirmed By:DARLYN LOGAN MD
[2018-09-19] MEDS ORDERED: ACETAMINOPHEN 325 MG TABLET (FP) PO PRN (16:07)
--- NOTE | 2018-09-19 16:13 | HP ---
Admitting History and Physical - Primary Care Physician PCP: Eliza Boone - Admission Chief Complaint: I had fevers History of Present Illness: Mr Ezequiel Ospina is a very pleasant 78 year old male who comes in with fevers. He says he was in his normal state of health and underwent a cystoscopy yesterday. He was doing well, however this morning he developed subjective fevers and chills. He had shaking associated with it. He says that shaking was severe and that is why he came in. Aside from the fevers/shaking/chills he is without complaint. He denies lightheadedness, dizziness, passing out, chest pain or pressure, coughing, shortness of breath, nausea, vomiting, diarrhea, constipation, difficulty or pain on urination, or swelling. He says he is still feeling chills now but is no longer shaking. 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: Vertigo Cardiovascular: Yes: HTN, Hyperlipdemia Renal/: Yes: BPH Rheumatology: Yes: Gout Endocrine: Yes: Diabetes Mellitus - Past Surgical History Past Surgical History: Yes: Hernia Repair Additional Past Surgical History: Volvulus - Smoking History Smoking history: Former smoker Have you smoked in the past 12 months: No Aproximately how many cigarettes per day: 0 If you are a former smoker, when did you quit?: 15 years ago - Alcohol/Substance Use Hx Alcohol Use: Yes History of Substance Use: reports: None - Social History Usual Living Arrangement: Yes: With Spouse ADL: Independent History of Recent Travel: No Home Medications - Allergies Allergies/Adverse Reactions: Allergies Allergy/AdvReac Type Severity Reaction Status Date / Time No Known Allergies Allergy Verified 10/29/14 10:56 - Home Medications Home Medications: Ambulatory Orders Dexlansoprazole [Dexilant] 60 mg PO DAILY 10/17/11 Levothyroxine [Synthroid -] 75 mcg PO DAILY 02/06/12 Meclizine HCl [Antivert -] 12.5 mg PO TID 02/06/12 Olmesartan Medoxomil [Benicar -] 20 mg PO DAILY 04/09/12 Allopurinol 300 mg PO DAILY 08/01/18 Amlodipine Besylate 5 mg PO DAILY 08/01/18 Furosemide [Lasix] 20 mg PO ASDIR 08/01/18 Furosemide [Lasix] 40 mg PO ASDIR 08/01/18 Gabapentin 600 mg PO TID 08/01/18 Glimepiride 2 mg PO BID 08/01/18 Linaclotide [Linzess] 72 mcg PO DAILY 08/01/18 Metoprolol Succinate [Toprol Xl] 25 mg PO DAILY 08/01/18 Ranitidine [Zantac -] 150 mg PO BID 08/01/18 Aspirin [ASA -] 81 mg PO DAILY #30 tab.chew 08/04/18 Family Disease History - Family Disease History Family Disease History: Heart Disease: Father Review of Systems Findings/Remarks: Full review of systems obtained, as per HPI and otherwise negative. Physical Examination Vital Signs: Vital Signs Temperature 37.9 C H 09/19/18 07:51 Pulse Rate 107 H 09/19/18 10:37 Respiratory Rate 16 09/19/18 10:37 Blood Pressure 112/56 L 09/19/18 10:37 O2 Sat by Pulse Oximetry (%) 93 L 09/19/18 10:37 Constitutional: Yes: No Distress, Calm, Obese Eyes: Yes: Conjunctiva Clear, EOM Intact, PERRL HENT: Yes: Atraumatic, Normocephalic Cardiovascular: Yes: Tachycardia. No: Pulse Irregular, Gallop, Murmur, Rub Respiratory: Yes: Regular, CTA Bilaterally. No: Rales, Rhonchi, Wheezes Gastrointestinal: Yes: Normal Bowel Sounds, Soft. No: Distention, Tenderness Extremities: Yes: WNL Edema: No Labs: CBC, BMP 09/19/18 09:20 09/19/18 08:56 Imaging - Results Chest X-ray: Report Reviewed, Image Reviewed Problem List - Problems (1) Sepsis Assessment/Plan: -suspect transient bacteremia from cystoscopy -admit to telemetry since with hypotension and tachycardia -blood and urine cultures sent -IVF for hydration -continue rocephin -monitor for improvement Code(s): A41.9 - SEPSIS, UNSPECIFIED ORGANISM (2) HTN (hypertension) Assessment/Plan: -will hold amlodipine Code(s): I10 - ESSENTIAL (PRIMARY) HYPERTENSION (3) Hypothyroid Assessment/Plan: -continue synthroid Code(s): E03.9 - HYPOTHYROIDISM, UNSPECIFIED (4) UTI (urinary tract infection) Assessment/Plan: -suspected -continue rocephin Code(s): N39.0 - URINARY TRACT INFECTION, SITE NOT SPECIFIED (5) Gout Assessment/Plan: -continue allopurinol Code(s): M10.9 - GOUT, UNSPECIFIED (6) Neuropathy Assessment/Plan: -continue gabapentin Code(s): G62.9 - POLYNEUROPATHY, UNSPECIFIED
[2018-09-19] MEDS: SODIUM CHLORIDE 1,000 ML IV SCH (18:04)
[2018-09-19] MEDS: LACTOBACILLUS ACIDOPHILUS 1 TABLET PO SCH (19:45)
[2018-09-19] MEDS ORDERED: MECLIZINE HCL 12.5 MG TABLET ONE (22:31)
[2018-09-19] MEDS ORDERED: RANITIDINE HCL 150 MG TABLET (FP) ONE (22:31)
[2018-09-19] MEDS: RANITIDINE HCL 150 MG TABLET (FP) PO SCH (22:34)
[2018-09-19] MEDS: MECLIZINE HCL 12.5 MG TABLET PO SCH (22:34)
[2018-09-19] MEDS: GABAPENTIN 300 MG CAPSULE (FP) PO SCH (23:50)
[2018-09-20] MEDS ORDERED: ACETAMINOPHEN 325 MG TABLET (FP) ONE (01:28)
[2018-09-20] MEDS: MECLIZINE HCL 12.5 MG TABLET PO SCH ×3 (06:07→21:11)
[2018-09-20] MEDS: LEVOTHYROXINE NA 25 MCG TABLET (FP) PO SCH (06:07)
[2018-09-20] MEDS: GABAPENTIN 300 MG CAPSULE (FP) PO SCH ×3 (06:07→21:11)
[2018-09-20] MEDS ORDERED: PT OWN MED DRAWER 7, Y5N ONE ×2 (06:14→21:10)
[2018-09-20 06:54] LABS: BASO % 0.4 % (0-2.0); EOS % 6.6 % (0-4.5); HEMOGLOBIN 10.9 GM/dL (11.7-16.9); LYMPH % 6.9 % (8-40); MCH 22.8 pg (25.7-33.7); MCHC 31.2 g/dl (32.0-35.9); MONO % 6.8 % (3.8-10.2); NEUT % 79.3 % (42.8-82.8); PLATELET COUNT 310 K/MM3 (134-434); RDW 22.7 % (11.9-15.9); WHITE BLOOD COUNT 9.7 K/mm3 (4.0-10.0)
[2018-09-20 07:09] LABS: ALBUMIN 2.8 g/dl (3.4-5.0); BILIRUBIN,TOTAL 0.4 mg/dL (0.2-1); CALCIUM 7.8 mg/dL (8.5-10.1); CREATININE 1.3 mg/dL (0.55-1.3); MAGNESIUM 1.8 mg/dL (1.8-2.4); PHOSPHOROUS 2.6 mg/dL (2.5-4.9); POTASSIUM 4.5 mmol/L (3.5-5.1); TOT PROT 6.5 g/dl (6.4-8.2)
[2018-09-20] MEDS ORDERED: amLODIPine BESYLATE 5 MG TABLET (FP) PO SCH (10:00)
[2018-09-20] MEDS ORDERED: cefTRIAXone SODIUM 1 GM VIAL ONE (10:27)
[2018-09-20] MEDS ORDERED: DEXTROSE 5%-WATER - 50 ML IVPB ONE (10:27)
[2018-09-20] MEDS: CEFTRIAXONE 1 GM in DEXTROSE 5%-WATER - 50 ML IVPB SCH (10:28)
[2018-09-20] MEDS: ALLOPURINOL 300 MG TABLET (FP) PO SCH (10:29)
[2018-09-20] MEDS: metoPROLOL SUCCINATE 25 MG TAB.SR.24H (FP) PO SCH (10:29)
[2018-09-20] MEDS: RANITIDINE HCL 150 MG TABLET (FP) PO SCH ×2 (10:29→21:11)
[2018-09-20] MEDS: ASPIRIN 81 MG CHEWABLE TABLETS PO SCH (10:29)
[2018-09-20] MEDS: ENOXAPARIN NA (PORCINE) 40 MG/0.4 ML DISP.SYRIN SQ SCH (10:29)
[2018-09-20] MEDS: PANTOPRAZOLE 40 MG TABLET (FP) PO SCH (10:29)
[2018-09-20] MEDS: LACTOBACILLUS ACIDOPHILUS 1 TABLET PO SCH (10:43)
--- NOTE | 2018-09-20 11:17 | PN ---
Progress Note, Physician Chief Complaint: Mr Ezequiel Ospina says he is feeling much better today. Denies fevers, chills, rigors, cp, sob, n/v. - Current Medication List Current Medications: Active Medications Acetaminophen (Tylenol -) 650 mg PO Q4H PRN PRN Reason: FEVER Last Admin: 09/20/18 01:34 Dose: 650 mg Allopurinol (Zyloprim -) 300 mg PO DAILY [facility] Last Admin: 09/20/18 10:29 Dose: 300 mg Aspirin (Asa -) 81 mg PO DAILY [facility] Last Admin: 09/20/18 10:29 Dose: 81 mg Enoxaparin Sodium (Lovenox -) 40 mg SQ DAILY [facility] Last Admin: 09/20/18 10:29 Dose: 40 mg Gabapentin (Neurontin -) 600 mg PO TID [facility] Last Admin: 09/20/18 06:07 Dose: 600 mg Sodium Chloride (Normal Saline -) 1,000 mls @ 75 mls/hr IV ASDIR [facility] Last Admin: 09/19/18 18:04 Dose: 75 mls/hr Ceftriaxone Sodium 1 gm/ (Dextrose) 50 mls @ 100 mls/hr IVPB DAILY [facility]; Protocol Last Admin: 09/20/18 10:28 Dose: 100 mls/hr Lactobacillus Acidophilus (Bacid -) 1 tab PO DAILY [facility] Last Admin: 09/20/18 10:43 Dose: 1 tab Levothyroxine Sodium (Synthroid -) 75 mcg PO DAILY@0700 [facility] Last Admin: 09/20/18 06:07 Dose: 75 mcg Meclizine HCl (Antivert -) 12.5 mg PO TID [facility] Last Admin: 09/20/18 06:07 Dose: 12.5 mg Metoprolol Succinate (Toprol Xl -) 25 mg PO DAILY [facility] Last Admin: 09/20/18 10:29 Dose: 25 mg Pantoprazole Sodium (Protonix -) 40 mg PO DAILY [facility] Last Admin: 09/20/18 10:29 Dose: 40 mg Ranitidine HCl (Zantac -) 150 mg PO BID [facility] Last Admin: 09/20/18 10:29 Dose: 150 mg - Objective Vital Signs: Vital Signs Temperature 37.0 C 09/20/18 06:22 Pulse Rate 99 H 09/20/18 06:22 Respiratory Rate 17 09/20/18 06:22 Blood Pressure 129/73 09/20/18 06:22 O2 Sat by Pulse Oximetry (%) 98 09/20/18 03:10 Constitutional: Yes: No Distress, Calm, Obese Cardiovascular: Yes: Regular Rate and Rhythm. No: Gallop, Murmur, Rub Respiratory: Yes: Regular, CTA Bilaterally. No: Rales, Rhonchi, Wheezes Gastrointestinal: Yes: Normal Bowel Sounds, Soft. No: Distention, Tenderness Extremities: Yes: WNL Edema: No Labs: CBC, BMP 09/20/18 05:30 09/20/18 05:30 INR, PTT INR 1.10 (0.83-1.09) H 09/19/18 09:20 Problem List - Problems (1) Sepsis Code(s): A41.9 - SEPSIS, UNSPECIFIED ORGANISM (2) HTN (hypertension) Code(s): I10 - ESSENTIAL (PRIMARY) HYPERTENSION (3) Hypothyroid Code(s): E03.9 - HYPOTHYROIDISM, UNSPECIFIED (4) UTI (urinary tract infection) Code(s): N39.0 - URINARY TRACT INFECTION, SITE NOT SPECIFIED (5) Gout Code(s): M10.9 - GOUT, UNSPECIFIED (6) Neuropathy Code(s): G62.9 - POLYNEUROPATHY, UNSPECIFIED Assessment/Plan (1) Sepsis Assessment/Plan: -improving -suspect transient bacteremia -continue rocephin -follow up cultures -if he remains in NSR, can transition to med/surg Code(s): A41.9 - SEPSIS, UNSPECIFIED ORGANISM (2) HTN (hypertension) Assessment/Plan: -can restart amlodipine Code(s): I10 - ESSENTIAL (PRIMARY) HYPERTENSION (3) Hypothyroid Assessment/Plan: -continue synthroid Code(s): E03.9 - HYPOTHYROIDISM, UNSPECIFIED (4) UTI (urinary tract infection) Assessment/Plan: -suspected -continue rocephin Code(s): N39.0 - URINARY TRACT INFECTION, SITE NOT SPECIFIED (5) Gout Assessment/Plan: -continue allopurinol Code(s): M10.9 - GOUT, UNSPECIFIED (6) Neuropathy Assessment/Plan: -continue gabapentin Code(s): G62.9 - POLYNEUROPATHY, UNSPECIFIED
[2018-09-20] MEDS: SODIUM CHLORIDE 1,000 ML IV SCH (19:00)
[2018-09-21 06:11] LABS: BASO % 0.6 % (0-2.0); EOS % 11.2 % (0-4.5); HEMATOCRIT 39.5 % (35.4-49); HEMOGLOBIN 12.1 GM/dL (11.7-16.9); LYMPH % 22.9 % (8-40); MCH 22.8 pg (25.7-33.7); MCHC 30.7 g/dl (32.0-35.9); MEAN CELL VOLUME 74.2 fl (80-96); MEAN PLT VOLUME 7.3 fl (7.5-11.1); MONO % 9.4 % (3.8-10.2); NEUT % 55.9 % (42.8-82.8); PLATELET COUNT 271 K/MM3 (134-434); RBC 5.32 M/mm3 (4.00-5.60); RDW 23.3 % (11.9-15.9); WHITE BLOOD COUNT 6.2 K/mm3 (4.0-10.0)
[2018-09-21] MEDS: LEVOTHYROXINE NA 25 MCG TABLET (FP) PO SCH (06:28)
[2018-09-21] MEDS: MECLIZINE HCL 12.5 MG TABLET PO SCH ×3 (06:28→21:08)
[2018-09-21] MEDS: GABAPENTIN 300 MG CAPSULE (FP) PO SCH ×3 (06:28→21:08)
[2018-09-21] MEDS: SODIUM CHLORIDE 1,000 ML IV SCH (06:29)
[2018-09-21 06:45] LABS: CALCIUM 8.2 mg/dL (8.5-10.1); MAGNESIUM 2.3 mg/dL (1.8-2.4); PHOSPHOROUS 2.8 mg/dL (2.5-4.9); POTASSIUM 4.4 mmol/L (3.5-5.1)
[2018-09-21] MEDS ORDERED: PT OWN MED DRAWER 7, Y5N ONE (09:05)
[2018-09-21] MEDS ORDERED: DEXTROSE 5%-WATER - 50 ML IVPB ONE (09:05)
[2018-09-21] MEDS ORDERED: cefTRIAXone SODIUM 1 GM VIAL ONE (09:05)
[2018-09-21] MEDS: CEFTRIAXONE 1 GM in DEXTROSE 5%-WATER - 50 ML IVPB SCH (09:29)
[2018-09-21] MEDS: ASPIRIN 81 MG CHEWABLE TABLETS PO SCH (09:30)
[2018-09-21] MEDS: RANITIDINE HCL 150 MG TABLET (FP) PO SCH ×2 (09:30→21:08)
[2018-09-21] MEDS: LACTOBACILLUS ACIDOPHILUS 1 TABLET PO SCH (09:30)
--- NOTE | 2018-09-21 09:30 | PN ---
Progress Note, Physician Chief Complaint: Mr Ezequiel Ospina says he is feeling fine and back to normal. Denies cp, sob, n/ v. RN notes he becomes very tachycardic with exertion. - Current Medication List Current Medications: Active Medications Acetaminophen (Tylenol -) 650 mg PO Q4H PRN PRN Reason: FEVER Last Admin: 09/20/18 01:34 Dose: 650 mg Allopurinol (Zyloprim -) 300 mg PO DAILY [facility] Last Admin: 09/20/18 10:29 Dose: 300 mg Amlodipine Besylate (Norvasc -) 5 mg PO DAILY [facility] Aspirin (Asa -) 81 mg PO DAILY [facility] Last Admin: 09/20/18 10:29 Dose: 81 mg Enoxaparin Sodium (Lovenox -) 40 mg SQ DAILY [facility] Last Admin: 09/20/18 10:29 Dose: 40 mg Gabapentin (Neurontin -) 600 mg PO TID [facility] Last Admin: 09/21/18 06:28 Dose: 600 mg Ceftriaxone Sodium 1 gm/ (Dextrose) 50 mls @ 100 mls/hr IVPB DAILY [facility]; Protocol Last Admin: 09/20/18 10:28 Dose: 100 mls/hr Lactobacillus Acidophilus (Bacid -) 1 tab PO DAILY [facility] Last Admin: 09/20/18 10:43 Dose: 1 tab Levothyroxine Sodium (Synthroid -) 75 mcg PO DAILY@0700 [facility] Last Admin: 09/21/18 06:28 Dose: 75 mcg Meclizine HCl (Antivert -) 12.5 mg PO TID [facility] Last Admin: 09/21/18 06:28 Dose: 12.5 mg Metoprolol Succinate (Toprol Xl -) 25 mg PO DAILY [facility] Last Admin: 09/20/18 10:29 Dose: 25 mg Pantoprazole Sodium (Protonix -) 40 mg PO DAILY [facility] Last Admin: 09/20/18 10:29 Dose: 40 mg Ranitidine HCl (Zantac -) 150 mg PO BID [facility] Last Admin: 09/20/18 21:11 Dose: 150 mg - Objective Vital Signs: Vital Signs Temperature 36.7 C 09/21/18 06:31 Pulse Rate 61 09/21/18 06:31 Respiratory Rate 22 H 09/21/18 06:31 Blood Pressure 139/72 09/21/18 06:31 O2 Sat by Pulse Oximetry (%) 97 09/20/18 21:00 Constitutional: Yes: Well Nourished, No Distress, Calm Cardiovascular: Yes: Tachycardia. No: Pulse Irregular, Gallop, Murmur, Rub Respiratory: Yes: Regular, CTA Bilaterally. No: Rales, Rhonchi, Wheezes Gastrointestinal: Yes: Normal Bowel Sounds, Soft. No: Distention, Tenderness Extremities: Yes: WNL Edema: No Labs: CBC, BMP 09/21/18 05:30 09/21/18 05:30 INR, PTT INR 1.10 (0.83-1.09) H 09/19/18 09:20 Problem List - Problems (1) Sepsis Code(s): A41.9 - SEPSIS, UNSPECIFIED ORGANISM (2) HTN (hypertension) Code(s): I10 - ESSENTIAL (PRIMARY) HYPERTENSION (3) Hypothyroid Code(s): E03.9 - HYPOTHYROIDISM, UNSPECIFIED (4) UTI (urinary tract infection) Code(s): N39.0 - URINARY TRACT INFECTION, SITE NOT SPECIFIED (5) Gout Code(s): M10.9 - GOUT, UNSPECIFIED (6) Neuropathy Code(s): G62.9 - POLYNEUROPATHY, UNSPECIFIED Assessment/Plan (1) Sepsis Assessment/Plan: -resolved -will stop IVF -monitor cultures for another 24 hours -if remain negative, can stop empiric antibiotics Code(s): A41.9 - SEPSIS, UNSPECIFIED ORGANISM (2) HTN (hypertension) Assessment/Plan: -controlled on toprol xl and amlodipine Code(s): I10 - ESSENTIAL (PRIMARY) HYPERTENSION (3) Hypothyroid Assessment/Plan: -check TSH and FT4 -may be contributing to tachycardia -if levels abnormal, will decrease synthroid to 50mcg daily Code(s): E03.9 - HYPOTHYROIDISM, UNSPECIFIED (4) UTI (urinary tract infection) Assessment/Plan: -suspected -continue empiric rocephin Code(s): N39.0 - URINARY TRACT INFECTION, SITE NOT SPECIFIED (5) Gout Assessment/Plan: -continue allopurinol Code(s): M10.9 - GOUT, UNSPECIFIED (6) Neuropathy Assessment/Plan: -continue gabapentin Code(s): G62.9 - POLYNEUROPATHY, UNSPECIFIED (7) Sinus tachycardia -suspected secondary to sepsis, but sepsis is treated and persistent -reviewing previous notes, cardiology in July says has PAT -looks sinus tachycardia on telemetry, will repeat EKG -consult cardiology to assess and verify this is a chronic problem -may need increase in toprol xl -if blood pressure cannot tolerate, stop amlodipine
[2018-09-21] MEDS: metoPROLOL SUCCINATE 25 MG TAB.SR.24H (FP) PO SCH (09:31)
[2018-09-21] MEDS: amLODIPine BESYLATE 5 MG TABLET (FP) PO SCH (09:31)
[2018-09-21] MEDS: ENOXAPARIN NA (PORCINE) 40 MG/0.4 ML DISP.SYRIN SQ SCH (09:31)
[2018-09-21] MEDS: PANTOPRAZOLE 40 MG TABLET (FP) PO SCH (09:31)
[2018-09-21] MEDS: ALLOPURINOL 300 MG TABLET (FP) PO SCH (09:31)
--- NOTE | 2018-09-21 10:35 | CON.CARD ---
Consult Consult Specialty:: Cardiology Referred by:: Dr. Kathleen Reason for Consultation:: PSVT - History of Present Illness Chief Complaint: fevers and chills History of Present Illness: 78M DM s/p cysto admitted with chills, fevers and suspected early sepsis. Denies CP, SOB, palps, dizziness. Found to have a run of PSVT on tele - patient has a known h/o PAT. Per review of old records, h/o ASHD although pt denies prior NV or PCI. - History Source History Provided By: Patient, Medical Record - Past Medical History PATHOLOGY ASSISTANT: Yes: Vertigo Cardio/Vascular: Yes: HTN, Hyperlipdemia, Other (PAT) Renal/: Yes: BPH Rheumatology: Yes: Gout Endocrine: Yes: Diabetes Mellitus - Past Surgical History Past Surgical History: Yes: Hernia Repair - Alcohol/Substance Use Hx Alcohol Use: Yes History of Substance Use: reports: None - Smoking History Smoking history: Former smoker Have you smoked in the past 12 months: No Aproximately how many cigarettes per day: 0 If you are a former smoker, when did you quit?: 15 years ago - Social History ADL: Independent History of Recent Travel: No Home Medications - Allergies Allergies/Adverse Reactions: Allergies Allergy/AdvReac Type Severity Reaction Status Date / Time No Known Allergies Allergy Verified 10/29/14 10:56 - Home Medications Home Medications: Ambulatory Orders Dexlansoprazole [Dexilant] 60 mg PO DAILY 10/17/11 Levothyroxine [Synthroid -] 75 mcg PO DAILY 02/06/12 Meclizine HCl [Antivert -] 12.5 mg PO TID 02/06/12 Olmesartan Medoxomil [Benicar -] 20 mg PO DAILY 04/09/12 Allopurinol 300 mg PO DAILY 08/01/18 Amlodipine Besylate 5 mg PO DAILY 08/01/18 Furosemide [Lasix] 20 mg PO ASDIR 08/01/18 Furosemide [Lasix] 40 mg PO ASDIR 08/01/18 Gabapentin 600 mg PO TID 08/01/18 Glimepiride 2 mg PO BID 08/01/18 Linaclotide [Linzess] 72 mcg PO DAILY 08/01/18 Metoprolol Succinate [Toprol Xl] 25 mg PO DAILY 08/01/18 Ranitidine [Zantac -] 150 mg PO BID 08/01/18 Aspirin [ASA -] 81 mg PO DAILY #30 tab.chew 08/04/18 Family Disease History - Family Disease History Family Disease History: Heart Disease: Father Review of Systems - Review of Systems Constitutional: reports: Fever Cardiovascular: reports: No Symptoms Respiratory: reports: No Symptoms Gastrointestinal: reports: No Symptoms Genitourinary: reports: No Symptoms Breasts: reports: No Symptoms Reported Musculoskeletal: reports: No Symptoms Integumentary: reports: No Symptoms Neurological: reports: No Symptoms Endocrine: reports: No Symptoms Hematology/Lymphatic: reports: No Symptoms Psychiatric: reports: No Symptoms - Risk Factors Known Risk Factors: Yes: Diabetes Mellitus, Hypertension Vital Signs: Vital Signs Temperature 98.1 F 09/21/18 06:31 Pulse Rate 61 09/21/18 06:31 Respiratory Rate 22 H 09/21/18 06:31 Blood Pressure 139/72 09/21/18 06:31 O2 Sat by Pulse Oximetry (%) 97 09/20/18 21:00 Constitutional: Yes: No Distress, Calm Eyes: Yes: Conjunctiva Clear, EOM Intact HENT: Yes: Atraumatic Respiratory: Yes: CTA Bilaterally Gastrointestinal: Yes: Soft, Abdomen, Obese Cardiovascular: Yes: Regular Rate and Rhythm JVD: No Carotid Bruit: No PMI: Non-Displaced Heart Sounds: Yes: S1, S2 Edema: No Peripheral Pulses WNL: Yes Neurological: Yes: Alert, Oriented ...Motor Strength: WNL - Other Data Labs, Other Data: CBC, BMP 09/21/18 05:30 09/21/18 05:30 INR, PTT INR 1.10 (0.83-1.09) H 09/19/18 09:20 Microbiology 07/09/11 10:10 Blood - Peripheral Venous Blood Culture - Final i n 09/19/18 09:20 Blood - Peripheral Venous Blood Culture - Preliminary NO GROWTH OBTAINED AFTER 48 HOURS, INCUBATION TO CONTINUE FOR 3 DAYS. 09/19/18 09:20 Blood - Peripheral Venous Blood Culture - Preliminary NO GROWTH OBTAINED AFTER 48 HOURS, INCUBATION TO CONTINUE FOR 3 DAYS. 07/09/11 10:10 Blood - Peripheral Venous i n Laboratory Tests 09/19/18 09/21/18 09/21/18 09:20 05:30 05:30 WBC 13.6 H 6.2 RBC 5.32 Hgb 12.1 Hct 39.5 Plt Count 271 Sodium 139 Potassium 4.4 BUN 13 Creatinine 1.0 Magnesium 2.3 TSH Pending Free T4 Pending [address], LAD, VPC cannot r/o old NV age undetermined. Echo: Report Reviewed (July 2018, done here: normal biV fx with no sig valve disease) Prior Cardiac Procedures: Cardiac Catheterization (pt reports was non-obstx) Imaging - Results X-ray: Image Reviewed EKG: Image Reviewed Assessment/Plan IMP: 1. Suspected gram negative sepsis secondary to recent cysto 2. Initial Sinus tach secondary to above, now resolved 3. PSVT: known h/o PAT with brief self limited episode on telemetry (reviewed) 4. DM 5. Abnl ECG REC: 1. For now, continue current dose Toprol and continue tele to assess for recurrence/duration and overall burden of PSVT. If remains brief and self limited can maintain current dose of 25mg daily. If frequent or prolonged, will titrate to 25mg BID. 2. Recent Echo July 2018 showed normal LV fx. 3. Although ECG is abnormal, it is unchanged from prior. Will try and obtain further prior records re. his cath many years ago at [facility] in order to clarify the documented h/o of CAD. Asx at this time. 4. Agree with checking TSH, pending. 5. Keep K+ and Mg2+ normalized. 6. Continued abx and f/u cultures as per primary team. Thank you. Will follow.
[2018-09-21 18:29] VITALS: BMI 36.7
[2018-09-22 05:54] LABS: BASO % 0.3 % (0-2.0); HEMATOCRIT 39.8 % (35.4-49); HEMOGLOBIN 12.4 GM/dL (11.7-16.9); LYMPH % 30.4 % (8-40); MCH 22.9 pg (25.7-33.7); MCHC 31.2 g/dl (32.0-35.9); MEAN CELL VOLUME 73.2 fl (80-96); MEAN PLT VOLUME 6.9 fl (7.5-11.1); NEUT % 51.3 % (42.8-82.8); PLATELET COUNT 288 K/MM3 (134-434); RBC 5.44 M/mm3 (4.00-5.60); RDW 22.4 % (11.9-15.9); WHITE BLOOD COUNT 5.2 K/mm3 (4.0-10.0)
[2018-09-22] MEDS: GABAPENTIN 300 MG CAPSULE (FP) PO SCH (06:13)
[2018-09-22] MEDS: LEVOTHYROXINE NA 25 MCG TABLET (FP) PO SCH (06:13)
[2018-09-22] MEDS: MECLIZINE HCL 12.5 MG TABLET PO SCH (06:13)
[2018-09-22 06:25] LABS: CALCIUM 8.4 mg/dL (8.5-10.1); CREATININE 0.9 mg/dL (0.55-1.3); MAGNESIUM 2.3 mg/dL (1.8-2.4); PHOSPHOROUS 3.5 mg/dL (2.5-4.9); POTASSIUM 4.1 mmol/L (3.5-5.1)
--- NOTE | 2018-09-22 08:58 | DS ---
Physical Examination Vital Signs: Vital Signs Temperature 36.7 C 09/22/18 06:00 Pulse Rate 85 09/22/18 06:00 Respiratory Rate 20 09/22/18 06:00 Blood Pressure 138/89 09/22/18 06:00 O2 Sat by Pulse Oximetry (%) 98 09/21/18 21:00 Constitutional: Yes: No Distress, Calm, Obese Cardiovascular: Yes: Regular Rate and Rhythm. No: Gallop, Murmur, Rub Respiratory: Yes: Regular, CTA Bilaterally. No: Rales, Rhonchi, Wheezes Gastrointestinal: Yes: Normal Bowel Sounds, Soft. No: Distention, Tenderness Extremities: Yes: WNL Edema: No Labs: CBC, BMP 09/22/18 05:30 09/22/18 05:30 Discharge Summary Reason For Visit: URINARY TRACT INFECTION Current Active Problems Gout (Acute) HTN (hypertension) (Acute) Hypothyroid (Acute) Neuropathy (Acute) Sepsis (Acute) UTI (urinary tract infection) (Acute) Hospital Course: (1) Sepsis Code(s): A41.9 - SEPSIS, UNSPECIFIED ORGANISM (2) HTN (hypertension) Code(s): I10 - ESSENTIAL (PRIMARY) HYPERTENSION (3) Hypothyroid Code(s): E03.9 - HYPOTHYROIDISM, UNSPECIFIED (4) UTI (urinary tract infection) Code(s): N39.0 - URINARY TRACT INFECTION, SITE NOT SPECIFIED (5) Gout Code(s): M10.9 - GOUT, UNSPECIFIED (6) Neuropathy Code(s): G62.9 - POLYNEUROPATHY, UNSPECIFIED Mr Ezequiel Ospina is a very pleasant 78 year old male who came in with SIRS after cystoscopy. He had cystoscopy the day before admission, and on the day of admission had fevers and rigors. He was also found to have leukocytosis as well and was admitted. Cultures were sent and he was started on empiric rocephin. Blood cultures remain negative, he is afebrile and his WBCs have normalized. His first urine culture was contaminant and the second is NGTD. Currently he is feeling back to baseline. He has a history of PAT and was tachycardic here as well, his TFTs were checked and normal so synthroid does not need to be adjusted. He was seen by cardiology and will be continued on his toprol and have outpatient follow up. He is safe for discharge home today. I will not continue antibiotics as all cultures are negative. 33 minutes spent in preparation of this discharge Condition: Stable - Instructions Diet, Activity, Other Instructions: resume previous diet and activity Referrals: Eliza Boone MD [Primary Care Provider] - Disposition: HOME - Home Medications Comprehensive Discharge Medication List: Ambulatory Orders Dexlansoprazole [Dexilant] 60 mg PO DAILY 10/17/11 Levothyroxine [Synthroid -] 75 mcg PO DAILY 02/06/12 Meclizine HCl [Antivert -] 12.5 mg PO TID 02/06/12 Olmesartan Medoxomil [Benicar -] 20 mg PO DAILY 04/09/12 Allopurinol 300 mg PO DAILY 08/01/18 Amlodipine Besylate 5 mg PO DAILY 08/01/18 Furosemide [Lasix] 20 mg PO ASDIR 08/01/18 Furosemide [Lasix] 40 mg PO ASDIR 08/01/18 Gabapentin 600 mg PO TID 08/01/18 Glimepiride 2 mg PO BID 08/01/18 Linaclotide [Linzess] 72 mcg PO DAILY 08/01/18 Metoprolol Succinate [Toprol Xl] 25 mg PO DAILY 08/01/18 Ranitidine [Zantac -] 150 mg PO BID 08/01/18 Aspirin [ASA -] 81 mg PO DAILY #30 tab.chew 08/04/18
[2018-09-22] MEDS ORDERED: cefTRIAXone SODIUM 1 GM VIAL ONE (09:01)
[2018-09-22] MEDS ORDERED: DEXTROSE 5%-WATER - 50 ML IVPB ONE (09:01)
[2018-09-22] MEDS: CEFTRIAXONE 1 GM in DEXTROSE 5%-WATER - 50 ML IVPB SCH (09:04)
[2018-09-22] MEDS: LACTOBACILLUS ACIDOPHILUS 1 TABLET PO SCH (09:08)
[2018-09-22] MEDS: metoPROLOL SUCCINATE 25 MG TAB.SR.24H (FP) PO SCH (09:09)
[2018-09-22] MEDS: amLODIPine BESYLATE 5 MG TABLET (FP) PO SCH (09:09)
[2018-09-22] MEDS: ALLOPURINOL 300 MG TABLET (FP) PO SCH (09:09)
[2018-09-22] MEDS: RANITIDINE HCL 150 MG TABLET (FP) PO SCH (09:09)
[2018-09-22] MEDS: ASPIRIN 81 MG CHEWABLE TABLETS PO SCH (09:09)
[2018-09-22] MEDS: PANTOPRAZOLE 40 MG TABLET (FP) PO SCH (09:09)
[2018-09-22] MEDS: ENOXAPARIN NA (PORCINE) 40 MG/0.4 ML DISP.SYRIN SQ SCH (09:10)
--- NOTE | 2018-09-22 09:36 | PN ---
Progress Note, Physician Chief Complaint: no complaints TELE: NSR w/ occasional paroxysms self limited SVT, asx - Current Medication List Current Medications: Active Medications Acetaminophen (Tylenol -) 650 mg PO Q4H PRN PRN Reason: FEVER Last Admin: 09/20/18 01:34 Dose: 650 mg Allopurinol (Zyloprim -) 300 mg PO DAILY [facility] Last Admin: 09/22/18 09:09 Dose: 300 mg Amlodipine Besylate (Norvasc -) 5 mg PO DAILY [facility] Last Admin: 09/22/18 09:09 Dose: 5 mg Aspirin (Asa -) 81 mg PO DAILY [facility] Last Admin: 09/22/18 09:09 Dose: 81 mg Enoxaparin Sodium (Lovenox -) 40 mg SQ DAILY [facility] Last Admin: 09/22/18 09:10 Dose: 40 mg Gabapentin (Neurontin -) 600 mg PO TID [facility] Last Admin: 09/22/18 06:13 Dose: 600 mg Ceftriaxone Sodium 1 gm/ (Dextrose) 50 mls @ 100 mls/hr IVPB DAILY [facility]; Protocol Last Admin: 09/22/18 09:04 Dose: 100 mls/hr Lactobacillus Acidophilus (Bacid -) 1 tab PO DAILY [facility] Last Admin: 09/22/18 09:08 Dose: 1 tab Levothyroxine Sodium (Synthroid -) 75 mcg PO DAILY@0700 [facility] Last Admin: 09/22/18 06:13 Dose: 75 mcg Meclizine HCl (Antivert -) 12.5 mg PO TID [facility] Last Admin: 09/22/18 06:13 Dose: 12.5 mg Metoprolol Succinate (Toprol Xl -) 25 mg PO DAILY [facility] Last Admin: 09/22/18 09:09 Dose: 25 mg Pantoprazole Sodium (Protonix -) 40 mg PO DAILY [facility] Last Admin: 09/22/18 09:09 Dose: 40 mg Ranitidine HCl (Zantac -) 150 mg PO BID [facility] Last Admin: 09/22/18 09:09 Dose: 150 mg - Objective Vital Signs: Vital Signs Temperature 98.1 F 09/22/18 06:00 Pulse Rate 85 09/22/18 06:00 Respiratory Rate 20 09/22/18 06:00 Blood Pressure 138/89 09/22/18 06:00 O2 Sat by Pulse Oximetry (%) 98 09/21/18 21:00 Constitutional: Yes: No Distress, Calm Cardiovascular: Yes: Regular Rate and Rhythm Respiratory: Yes: CTA Bilaterally Gastrointestinal: Yes: Soft, Abdomen, Obese Edema: No Neurological: Yes: Alert, Oriented ...Motor Strength: WNL Labs: CBC, BMP 09/22/18 05:30 09/22/18 05:30 INR, PTT INR 1.10 (0.83-1.09) H 09/19/18 09:20 Laboratory Tests 09/22/18 09/22/18 05:30 05:30 WBC 5.2 Hgb 12.4 Plt Count 288 Sodium 138 Potassium 4.1 Creatinine 0.9 - ....Imaging EKG: Image Reviewed Assessment/Plan IMP: 1. Suspected gram negative sepsis secondary to recent cysto 2. Initial Sinus tach secondary to above, now resolved 3. PSVT: known h/o PAT with brief self limited episode on telemetry (reviewed) 4. DM 5. Abnl ECG REC: 1. For now, continue current dose Toprol and continue tele to assess for recurrence/duration and overall burden of PSVT. If remains brief and self limited can maintain current dose of 25mg daily. If frequent or prolonged, will titrate to 25mg BID. 2. Recent Echo July 2018 showed normal LV fx. 3. Although ECG is abnormal, it is unchanged from prior. Will try and obtain further prior records re. his cath many years ago at [facility] in order to clarify the documented h/o of CAD. Asx at this time. 4. Thyroid med adjustment as per PMD 5. Keep K+ and Mg2+ normalized. 6. Continued abx and f/u cultures as per primary team. Thank you. Will follow.
[2018-09-22 10:31] VITALS: BP 130/84; PULSE 83; TEMP 98.2
--- NOTE | 2018-09-22 12:33 | EKG ---
Test Reason : Blood Pressure : / mmHG Vent. Rate : 070 BPM Atrial Rate : 070 BPM P-R Int : 200 ms QRS Dur : 102 ms QT Int : 366 ms P-R-T Axes : 089 -49 023 degrees QTc Int : 395 ms SINUS RHYTHM WITH BLOCKED PREMATURE ATRIAL COMPLEXES LEFT AXIS DEVIATION ABNORMAL ECG WHEN COMPARED WITH ECG OF 19-SEP-2018 08:36, PREMATURE VENTRICULAR COMPLEXES ARE NO LONGER PRESENT PREMATURE ATRIAL COMPLEXES ARE NOW PRESENT VENT. RATE HAS DECREASED BY 46 BPM CRITERIA FOR SEPTAL INFARCT ARE NO LONGER PRESENT Confirmed by SYLVIA HILARIO MD ([id number]) on 09/22/2018 12:32:34 PM Referred By: Luz Marina [email or web address] Confirmed By:SYLVIA HILARIO MD
== END 2018-09-22 11:21 | disposition home or self-care (01) | DRG 862 ==
LOC: JER 07:35 → J2W 14:22
PROVIDERS: ADMIT Internal Medicine; ATTEND Internal Medicine
DX: T81.44XA Sepsis following a procedure, initial encounter (principal); A41.59 Other Gram-negative sepsis; I47.1 Supraventricular tachycardia; N39.0 Urinary tract infection, site not specified; I10 Essential (primary) hypertension; I25.10 Atherosclerotic heart disease of native coronary artery without angina pectoris; E03.9 Hypothyroidism, unspecified; E78.00 Pure hypercholesterolemia, unspecified; N40.0 Benign prostatic hyperplasia without lower urinary tract symptoms; M10.9 Gout, unspecified; Y83.8 Other surgical procedures as the cause of abnormal reaction of the patient, or of later complication, without mention of misadventure at the time of the procedure; E66.8 Other obesity; Z68.35 Body mass index [BMI] 35.0-35.9, adult; R94.31 Abnormal electrocardiogram [ECG] [EKG]; G62.9 Polyneuropathy, unspecified; E11.42 Type 2 diabetes mellitus with diabetic polyneuropathy; Z87.891 Personal history of nicotine dependence
CPT/HCPCS: 36415; 71045-TC-FY; 80048; 80053; 81003; 82550; 82803; 82962; 83605; 83735; 84100; 84439; 84443; 84484; 85025; 85610; 85730; 87040; 87086; 93005; 93010; 97116-GP; 97161-GP; 99285-25; J0131; J7030

== ENCOUNTER 2020-08-28 08:14 | Inpatient (IN) | payer MEDICARE, OTHER ==
[2020-08-28 08:30] VITALS: BMI 39.1
[2020-08-28] MEDS ORDERED: ACETAMINOPHEN 1000 MG/100 ML VIAL (NON FORMULARY) IVPB ONE ×2 (08:56→09:13)
[2020-08-28] MEDS ORDERED: ACETAMINOPHEN INJECTION 100 ML IVPB ONE (09:07)
[2020-08-28] MEDS ORDERED: NITROGLYCERIN SUBLINGUAL 1/150 0.4 MG TAB ONE (09:07)
[2020-08-28] MEDS: NITROGLYCERIN SUBLINGUAL 1/150 0.4 MG TAB SL PRN ×3 (09:14→09:34)
[2020-08-28 10:16] LABS: BASO % 0.2 % (0-2.0); EOS % 3.1 % (0-4.5); HEMATOCRIT 48.5 % (35.4-49); HEMOGLOBIN 16.1 GM/dL (11.7-16.9); LYMPH % 13.6 % (8-40); MCH 31.3 pg (25.7-33.7); MCHC 33.2 g/dl (32.0-35.9); MEAN CELL VOLUME 94.1 fl (80-96); MONO % 7.8 % (3.8-10.2); NEUT % 75.3 % (42.8-82.8); PLATELET COUNT 181 K/MM3 (134-434); RBC 5.16 M/mm3 (4.00-5.60); RDW 14.6 % (11.9-15.9); WHITE BLOOD COUNT 9.5 K/mm3 (4.0-10.0)
[2020-08-28 10:22] LABS: INR 0.93 (0.83-1.09); PROTHROMBIN TIME (PATIENT) 11.5 SEC (9.7-13.0)
[2020-08-28 10:24] LABS: ACTIVATED PTT 30.9 SECONDS (25.2-36.5)
[2020-08-28 10:34] LABS: MAGNESIUM 2.1 mg/dL (1.8-2.4)
[2020-08-28 10:36] LABS: ALBUMIN 3.3 g/dl (3.4-5.0); BLOOD UREA NITROGEN 21.9 mg/dL (7-18); CALCIUM 9.7 mg/dL (8.5-10.1)
[2020-08-28 10:39] LABS: CREATININE 1.3 mg/dL (0.55-1.3)
[2020-08-28 10:41] LABS: BILIRUBIN,TOTAL 0.4 mg/dL (0.2-1); TOT PROT 6.8 g/dl (6.4-8.2)
[2020-08-28 10:44] LABS: N-TERMINAL BNP 296.4 pg/ml (5-450)
[2020-08-28] MEDS ORDERED: ASPIRIN 81 MG CHEWABLE TABLETS PO ONE (11:09)
[2020-08-28] MEDS ORDERED: ASPIRIN COATED 81 MG TABLET.EC ONE (11:17)
[2020-08-28] MEDS ORDERED: APIXABAN 5 MG TABLET PO SCH (13:00)
[2020-08-28] MEDS ORDERED: HEPARIN NA (PORCINE) 5,000 UNITS/ML 1ML VIAL IVPUSH PRN ×2 (13:00)
[2020-08-28] MEDS ORDERED: metoPROLOL SUCCINATE 25 MG TAB.SR.24H (FP) PO SCH (13:00)
[2020-08-28] MEDS ORDERED: HEPARIN - 25,000 UNIT in SODIUM CHLORIDE 495 ML IV SCH (13:00)
[2020-08-28] MEDS ORDERED: CLOPIDOGREL BISULFATE 300 MG TABLET PO ONE (13:01)
[2020-08-28] MEDS ORDERED: HEPARIN INFUSION - 25,000 UNITS/500 ML INFUS.BAG IVPB ONE (13:25)
[2020-08-28] MEDS ORDERED: HEPARIN NA (PORCINE) 5,000 UNITS/ML 1ML VIAL ONE (13:25)
[2020-08-28] MEDS ORDERED: CLOPIDOGREL BISULFATE 300 MG TABLET ONE (13:29)
[2020-08-28] MEDS ORDERED: metoPROLOL SUCCINATE 25 MG TAB.SR.24H (FP) ONE (13:29)
[2020-08-28] MEDS ORDERED: INSULIN SLIDING SCALE (NOVOLOG) 1 VIAL SQ SCH (16:30)
[2020-08-28] MEDS ORDERED: GABAPENTIN 400 MG CAPSULE PO SCH (22:00)
[2020-08-28] MEDS ORDERED: ATORVASTATIN CA 20 MG TABLET (FP) PO SCH (22:00)
[2020-08-28 22:14] VITALS: PULSE 85
[2020-08-28 22:56] VITALS: BP 149/95; TEMP 98.4
[2020-08-29] MEDS ORDERED: ATORVASTATIN CA 20 MG TABLET (FP) ONE (00:56)
[2020-08-29] MEDS ORDERED: GABAPENTIN 100 MG CAPSULE ONE (00:56)
[2020-08-29] MEDS ORDERED: LEVOTHYROXINE NA 75 MCG TABLET (FP) PO SCH (07:00)
[2020-08-29] MEDS ORDERED: ASPIRIN 81 MG CHEWABLE TABLETS PO SCH (10:00)
[2020-08-29] MEDS ORDERED: amLODIPine BESYLATE 5 MG TABLET (FP) PO SCH (10:00)
[2020-08-29] MEDS ORDERED: PANTOPRAZOLE 40 MG TABLET PO SCH (10:00)
[2020-08-29] MEDS ORDERED: CLOPIDOGREL BISULFATE 75 MG TABLET (FP) PO SCH (10:00)
[2020-08-29] MEDS ORDERED: FUROSEMIDE 20 MG TABLET (FP) PO SCH (10:00)
== END 2020-08-29 01:44 | disposition short-term general hospital (02) | DRG 282 ==
LOC: JER 08:14 → JERBED 13:17 → MERGE 13:17
PROVIDERS: ADMIT Internal Medicine; ATTEND Internal Medicine
DX: I21.4 Non-ST elevation (NSTEMI) myocardial infarction (principal); I25.10 Atherosclerotic heart disease of native coronary artery without angina pectoris; E11.9 Type 2 diabetes mellitus without complications; E66.01 Morbid (severe) obesity due to excess calories; Z68.39 Body mass index [BMI] 39.0-39.9, adult; I10 Essential (primary) hypertension; M10.9 Gout, unspecified; I48.91 Unspecified atrial fibrillation; E78.5 Hyperlipidemia, unspecified
CPT/HCPCS: 36415; 71045-TC-FY; 80053; 82962; 83735; 83880; 84443; 84484; 85025; 85610; 85730; 93005; 93010; 99285-25; C9803; J1644; U0003; U0005

== ENCOUNTER 2020-10-07 13:14 | Observation (INO) | payer MEDICARE, OTHER ==
[2020-10-07 14:03] LABS: BASO % 0.5 % (0-2.0); EOS % 3.8 % (0-4.5); HEMATOCRIT 49.9 % (35.4-49); HEMOGLOBIN 16.4 GM/dL (11.7-16.9); LYMPH % 19.1 % (8-40); MCH 30.6 pg (25.7-33.7); MCHC 32.9 g/dl (32.0-35.9); MEAN PLT VOLUME 8.2 fl (7.5-11.1); NEUT % 68.6 % (42.8-82.8); PLATELET COUNT 195 K/MM3 (134-434); RBC 5.37 M/mm3 (4.00-5.60); RDW 14.8 % (11.9-15.9); WHITE BLOOD COUNT 7.4 K/mm3 (4.0-10.0)
[2020-10-07 14:06] LABS: INR 1.15 (0.83-1.09); PROTHROMBIN TIME (PATIENT) 14.1 SEC (9.7-13.0)
[2020-10-07 14:09] LABS: ACTIVATED PTT 34.8 SECONDS (25.2-36.5)
[2020-10-07] MEDS ORDERED: ASPIRIN 81 MG CHEWABLE TABLETS PO ONE (14:21)
[2020-10-07 14:25] LABS: CHLORIDE 104 mmol/L (98-107)
[2020-10-07 14:36] LABS: ANION GAP -6 MMOL/L (8-16)
[2020-10-07 14:42] LABS: SODIUM 123 mmol/L (136-145)
[2020-10-07 14:43] LABS: BLOOD UREA NITROGEN 17.2 mg/dL (7-18); CALCIUM 8.4 mg/dL (8.5-10.1); CO2 25 mmol/L (21-32)
[2020-10-07 14:45] LABS: ALBUMIN 3.2 g/dl (3.4-5.0); GLUCOSE,RANDOM 119 mg/dL (74-106)
[2020-10-07 14:48] LABS: CREATININE 1.1 mg/dL (0.55-1.3)
[2020-10-07 14:50] LABS: ALK PHOS 84 U/L (45-117)
[2020-10-07] MEDS: SODIUM CHLORIDE 500 ML IV SCH (15:00)
[2020-10-07] MEDS ORDERED: ASPIRIN 81 MG CHEWABLE TABLETS ONE (15:46)
[2020-10-07 15:54] LABS: CALCIUM 8.8 mg/dL (8.5-10.1)
[2020-10-07 15:55] LABS: BLOOD UREA NITROGEN 16.8 mg/dL (7-18)
[2020-10-07 15:58] LABS: CREATININE 1.1 mg/dL (0.55-1.3)
[2020-10-07] MEDS: APIXABAN 5 MG TABLET PO SCH (22:13)
[2020-10-07] MEDS: INSULIN SLIDING SCALE (NOVOLOG) 1 VIAL SQ SCH (22:13)
[2020-10-07 23:22] VITALS: BMI 39.5
[2020-10-08] MEDS: INSULIN SLIDING SCALE (NOVOLOG) 1 VIAL SQ SCH ×4 (06:01→21:32)
[2020-10-08] MEDS: LEVOTHYROXINE NA 75 MCG TABLET (FP) PO SCH (06:02)
[2020-10-08 07:08] LABS: HEMATOCRIT 54.8 % (35.4-49); MCH 30.9 pg (25.7-33.7); MCHC 32.9 g/dl (32.0-35.9); MEAN CELL VOLUME 93.8 fl (80-96); MEAN PLT VOLUME 8.4 fl (7.5-11.1); PLATELET COUNT 208 K/MM3 (134-434); RBC 5.84 M/mm3 (4.00-5.60); RDW 14.4 % (11.9-15.9); WHITE BLOOD COUNT 8.3 K/mm3 (4.0-10.0)
[2020-10-08 07:32] LABS: CALCIUM 9.4 mg/dL (8.5-10.1)
[2020-10-08 07:33] LABS: BLOOD UREA NITROGEN 13.8 mg/dL (7-18)
[2020-10-08 07:34] LABS: MAGNESIUM 2.1 mg/dL (1.8-2.4)
[2020-10-08 07:36] LABS: CREATININE 1.1 mg/dL (0.55-1.3)
[2020-10-08 07:37] LABS: PHOSPHOROUS 2.7 mg/dL (2.5-4.9)
[2020-10-08] MEDS: FUROSEMIDE 20 MG TABLET (FP) PO SCH (09:26)
[2020-10-08] MEDS: metoPROLOL SUCCINATE 25 MG TAB.SR.24H (FP) PO SCH (09:26)
[2020-10-08] MEDS: APIXABAN 5 MG TABLET PO SCH (09:26)
[2020-10-08] MEDS: amLODIPine BESYLATE 5 MG TABLET (FP) PO SCH (09:26)
[2020-10-08] MEDS: PANTOPRAZOLE 20 MG TABLET PO SCH (09:26)
[2020-10-08] MEDS: SODIUM CHLORIDE 500 ML IV SCH (17:37)
[2020-10-08] MEDS: ACETAMINOPHEN 325 MG TABLET (FP) PO PRN (19:14)
[2020-10-09 06:45] LABS: HEMATOCRIT 54.4 % (35.4-49); HEMOGLOBIN 17.9 GM/dL (11.7-16.9); MCH 31.1 pg (25.7-33.7); MCHC 32.9 g/dl (32.0-35.9); MEAN CELL VOLUME 94.4 fl (80-96); MEAN PLT VOLUME 8.2 fl (7.5-11.1); PLATELET COUNT 187 K/MM3 (134-434); RBC 5.77 M/mm3 (4.00-5.60); RDW 14.3 % (11.9-15.9); WHITE BLOOD COUNT 9.5 K/mm3 (4.0-10.0)
[2020-10-09] MEDS: INSULIN SLIDING SCALE (NOVOLOG) 1 VIAL SQ SCH ×4 (06:54→21:41)
[2020-10-09] MEDS: LEVOTHYROXINE NA 75 MCG TABLET (FP) PO SCH (06:55)
[2020-10-09 07:25] LABS: BLOOD UREA NITROGEN 17.2 mg/dL (7-18); N-TERMINAL BNP 309.4 pg/ml (5-450)
[2020-10-09] MEDS: amLODIPine BESYLATE 5 MG TABLET (FP) PO SCH (09:26)
[2020-10-09] MEDS: PANTOPRAZOLE 20 MG TABLET PO SCH (09:26)
[2020-10-09] MEDS: metoPROLOL SUCCINATE 25 MG TAB.SR.24H (FP) PO SCH (09:26)
[2020-10-09] MEDS: FUROSEMIDE 20 MG TABLET (FP) PO SCH (09:26)
[2020-10-09] MEDS: ACETAMINOPHEN 325 MG TABLET (FP) PO PRN (09:28)
[2020-10-09] MEDS ORDERED: metoPROLOL SUCCINATE 25 MG TAB.SR.24H (FP) PO ONE (10:27)
[2020-10-09 10:50] LABS: RETICULOCYTES 1.23 % (0.5-1.5)
[2020-10-09] MEDS ORDERED: VALSARTAN 160 MG TABLET PO SCH (13:30)
[2020-10-09] MEDS ORDERED: POTASSIUM CHLORIDE TABS 20 MEQ TABLET.ER (FP) PO ONE (13:45)
[2020-10-09 14:16] LABS: MAGNESIUM 2.4 mg/dL (1.8-2.4)
[2020-10-09] MEDS: SODIUM CHLORIDE 500 ML IV SCH (14:17)
[2020-10-09 22:00] VITALS: BP 140/86; PULSE 89; TEMP 98.8
[2020-10-11 14:07] LABS: FREE KAPPA,SERUM 32.6 mg/L (3.3-19.4)
== END 2020-10-09 23:00 | disposition short-term general hospital (02) ==
LOC: JER 13:14 → INTOOBSV 18:29 → JERBED 18:29 → J4S 21:43
PROVIDERS: ADMIT Student in an Organized Health Care Education/Training Program; ATTEND Internal Medicine
DX: I48.0 Paroxysmal atrial fibrillation (principal); I47.2 Ventricular tachycardia; E11.9 Type 2 diabetes mellitus without complications; I25.10 Atherosclerotic heart disease of native coronary artery without angina pectoris; I11.9 Hypertensive heart disease without heart failure; M10.9 Gout, unspecified; E03.9 Hypothyroidism, unspecified; K21.9 Gastro-esophageal reflux disease without esophagitis; Z87.891 Personal history of nicotine dependence; E66.9 Obesity, unspecified; Z68.39 Body mass index [BMI] 39.0-39.9, adult; I31.3 Pericardial effusion (noninflammatory); Z29.9 Encounter for prophylactic measures, unspecified
CPT/HCPCS: 36415; 71045-TC-FY; 71250-TC; 80048; 80053; 82668; 82784; 82962; 83735; 83880; 83883; 84100; 84155; 84165; 84443; 84484; 85025; 85027; 85045; 85379; 85610; 85651; 85730; 86140; 93005; 93010; 93306-TC; 99285-25; C9803; G0378; U0003; U0005